=== PATIENT | female | born 1950 | race Caucasian/White ===

== ENCOUNTER 2024-02-25 06:54 | Inpatient (IN) ==
--- NOTE | 2024-02-25 07:23 | Emergency Department Note ---
Impression & Plan Acute exacerbation of CHF (congestive heart failure), Hypertensive emergency, Elevated troponin ED Provider Note NAME: KAYCE VILLANUEVA AGE: 73 SEX: F : 1950 ARRIVES VIA: Walk-In INFORMANT: Patient, ED PROVIDER(S): Remi Degroot MD CHIEF COMPLAINT: Shortness of breath MEDICAL DECISION MAKING: Patient presents due to concern for shortness of breath. The patient was noted to be hypertensive but did state that she had some associated infectious symptoms. IV was established blood was obtained and chest x-ray was completed. Per my read the patient does appear volume overloaded with bilateral pleural effusions. The patient was ordered IV Lasix Nitropaste and BiPAP. Patient's blood work shows a normal white count hemoglobin of 11 with a normal platelet count. Kidney function is unremarkable. Initial troponin of 84 the patient's BNP of 410 patient likely does have volume overload hypertensive emergency possible heart failure. I did speak the on-call hospitalist service NADINE Caraballo and the patient was admitted by Dr. Perkins. Critical Care: I have personally spent 47 minutes of critical care time in direct management of this patient. This includes bedside care, interpretation of diagnostic studies, and testing, discussion with consultants, patient, and family members, and other require inpatient management activities. This 47 minutes is in excess of all separately billable procedures. Discussion w/ other healthcare providers: NADINE Alonzo and Dr. Perkins inpatient medicine service Prior /Outside records reviewed: None Differential diagnosis: Reactive airway disease, pneumonia, pneumothorax, COPD, CHF, ACS, pulmonary embolism, musculoskeletal, GERD as well as other pathologies were considered. Diagnostics, as interpreted by me: ECG: Sinus with PACs, rate of 93, normal intervals, normal axis no ST elevations. Cardiac monitoring: An order was placed for continuous cardiac monitoring. The monitor shows a rate of 92 with sinus with PACs rhythm. Patient was placed on pulse oximetry Medical decision rules: None Imaging studies: I informally interpreted the patient's chest x-ray shows bilateral pleural effusions with pulmonary edema with formal report to follow. HPI: Patient presents due to concern for shortness of breath. The patient states that she developed this after taking her medications around 8 PM last evening. The patient denies any changes in medication or rash. Patient does not believe that she is having allergic reaction. Patient does live by herself but did think that her blood pressure was elevated. The patient does complain of some associated right-sided shoulder pain. Patient is a non-smoker. Patient is scheduled to have a back injection completed on the and has been taking chronic Tylenol about 503 times daily for months. The patient has taken ibuprofen 400 mg up to 3 times daily for the last several weeks. The patient denies any current weakness but has had intermittent numbness in her legs. Patient denies any falls or trauma. Patient states that she has had productive sputum. Patient is a non-smoker and no history of smoking. Patient denies any prior history of heart or lung disease. No chest pain. Patient did not take her morning medications. Patient has not noticed any significant leg swelling. No recent travel. The patient states that she did have an echocardiogram completed in January but that was difficult to interpret as scheduled for another 1 upcoming. PAST MEDICAL HISTORY: See Below PAST SURGICAL HISTORY: See Below SOCIAL HISTORY: See Below HOME MEDICATIONS: See Below ALLERGIES: See Below VITALS: See Below PHYSICAL EXAMINATION: GENERAL: NAD, non-toxic. EYE EXAM: Normal conjunctiva. PERRL, no anisocoria and EOM's grossly intact w/o pain. OROPHARYNX: Moist mucus membranes, grossly normal dentition. NECK: Trachea midline, no stridor. Supple, no nuchal rigidity, no adenopathy, non-tender. No signs of meningismus. FROM of the neck with good chin to chest and neck extension. LUNGS: Clear to auscultation. Normal chest wall mechanics. HEART: NSR, no MRG. ABDOMEN: Abdomen soft, non-tender, no masses, no rebound or guarding. BACK: No CVA TTP. SKIN: No rashes and no bruising. UPPER EXTREMITIES: Upper extremities are grossly normal. LOWER EXTREMITIES: Grossly normal, trace pretibial edema without any calf pain or erythema. NEURO EXAM: A&O x3, cranial nerves II-XII grossly intact, normal speech, moves all 4 extremities. Past Med/Surg History Medical History Hypertensive emergency Lumbar radiculopathy, chronic Shortness of breath Hypertensive urgency Hyperlipidemia Hypertension Surgical History History of arthroscopy of both knees Family History Other Depression Dyslipidemia Hypertension Social History Smoking Status: Never smoker Hx Alcohol Use: No Hx Substance Use: No marital status: current occupational status: retired Feels Safe at Home: Yes Allergies Allergies Allergy/AdvReac Type Severity Reaction Status Date / Time Cephalosporins Allergy Unknown Verified 02/25/24 10:17 Home Meds Home Medications Medication Instructions Recorded Confirmed calcium carbonate 600 mg-vitamin 0 tab PO DAILY ##0 07/10/09 02/25/24 D3 20 mcg (800 unit) chewable tablet (Caltrate 600 plus D) multivitamin 0 tab PO DAILY ##0 07/10/09 02/25/24 gabapentin 300 mg capsule 300 mg PO BID 02/25/24 02/25/24 hydrochlorothiazide 25 mg tablet 25 mg PO DAILY 02/25/24 02/25/24 lisinopril 10 mg tablet 10 mg PO DAILY 02/25/24 02/25/24 simvastatin 20 mg tablet 20 mg PO DAILY 02/25/24 02/25/24 Results & Data (ED) Vital Signs Vital Signs - 24 hr 02/25/24 06:59 02/25/24 08:11 02/25/24 08:45 Temperature 37.5 C Temperature Source Temporal Artery Scan Pulse Rate 94 H 79 80 Respiratory Rate 22 27 H Respiratory Effort / Characteristics Non-Labored Non-Labored Spontaneous Respiratory Depth Normal Normal Respiratory Pattern Regular Blood Pressure 232/126 H Blood Pressure Mean 161 Pulse Oximetry 87 L 95 Oxygen Delivery Method Room Air Oxygen Flow Rate 2 Sepsis Recent Fever Within 48 Hours No Sepsis New/Unexplained Change in Mental Status No Sepsis Action Taken by Nursing No Action Required Oxygen Flow Rate - Titration Pulse Oximetry Post Tiitration 02/25/24 08:54 Temperature Temperature Source Pulse Rate Respiratory Rate Respiratory Effort / Characteristics Respiratory Depth Respiratory Pattern Blood Pressure Blood Pressure Mean Pulse Oximetry 87 L Oxygen Delivery Method Room Air Oxygen Flow Rate Sepsis Recent Fever Within 48 Hours Sepsis New/Unexplained Change in Mental Status Sepsis Action Taken by Nursing Oxygen Flow Rate - Titration 4 Pulse Oximetry Post Tiitration 96 Home Medications Current Medication List: was personally reviewed by me Laboratory Data Attestation: I reviewed the patient's lab results. 02/25/24 07:12 02/25/24 07:12 Lab Results 02/25/24 02/25/24 Range/Units 07:12 09:22 WBC 8.97 (4.8-10.8) K/ul RBC 3.61 L (4.20-5.40) M/uL Hgb 11.0 L (12.0-16.0) g/dl Hct 34.9 L (37.0-47.0) % MCV 96.7 (80.0-100.0) fL MCH 30.5 (25.0-34.0) pg MCHC 31.5 L (32.0-36.0) g/dL RDW Std Deviation 48.5 H (36.4-46.3) fL RDW Coeff of J Luis 13.5 (11.5-14.5) % Plt Count 235 (130-400) K/uL MPV 10.0 (9.4-12.4) fL Immature Gran % (Auto) 0.3 % Neut % (Auto) 82.5 % Lymph % (Auto) 10.6 % [place] % (Auto) 5.8 % Eos % (Auto) 0.1 % Baso % (Auto) 0.7 % Neut # (Auto) 7.40 H (1.40-6.50) K/uL Lymph # (Auto) 0.95 L (1.20-3.40) K/uL [place] # (Auto) 0.52 (0.11-0.59) K/uL Eos # (Auto) 0.01 (0.00-0.50) K/uL Baso # (Auto) 0.06 (0.00-0.20) K/uL Immature Gran # (Auto) 0.03 (0.01-0.20) K/uL PT 10.6 (9.0-12.0) Seconds INR 1.0 (0.9-1.1) APTT 26 (21-31) Seconds PTT Ratio 0.9 Sodium 140 (136-145) mmol/L Potassium 4.0 (3.5-5.1) mmol/L Chloride 103 (98-107) mmol/L Carbon Dioxide 28 (21-32) mmol/L Anion Gap 9 (3-11) BUN 15 (6-23) mg/dl Creatinine 0.88 (0.6-1.2) mg/dl Est Cr Clr Drug Dosing 49.6 ml/min Est GFR ( Amer) 75.5 ml/min Est GFR (Non-Af Amer) 65.2 ml/min BUN/Creatinine Ratio 17.0 (10-20) Glucose 126 H (70-99(Fasting)) mg/dl Calcium 9.9 (8.6-10.3) mg/dl Magnesium 1.7 (1.7-2.4) mg/dl Total Bilirubin 0.8 (0.2-1.0) mg/dl AST 27 (13-39) U/L ALT 16 (7-52) U/L Alkaline Phosphatase 62 (34-104) U/L Troponin I High Sens 84.4 H* (0-14) pg/ml B-Natriuretic Peptide 410 H (0-100) pg/ml Total Protein 8.2 (6.0-8.3) gm/dl Albumin 4.7 (3.4-5.0) gm/dl Globulin 3.5 (2.5-4.0) gm/dl Albumin/Globulin Ratio 1.3 (0.9-2) Procalcitonin 0.08 (0-0.5) ng/ml Urine Color Yellow Urine Appearance Clear (Clear) Urine pH 7.5 (4.5-7.5) Ur Specific [place] 1.006 (1.000-1.030) Urine Protein Negative (Negative) Urine Glucose (UA) Negative (Negative) Urine Ketones Negative (Negative) Urine Blood Negative (Negative) Urine Nitrite Negative (Negative) Urine Bilirubin Negative (Negative) Urine Urobilinogen Negative (Negative) Ur Leukocyte Esterase Negative (Negative) Administered Medications Acetaminophen (Acetaminophen 325 Mg Tab) 650 mg PO Q4H PRN PRN Reason: Pain or Fever Stop: 03/26/24 09:39 Last Admin: 02/25/24 12:01 Dose: 650 mg Documented By: NRB Aspirin (Aspirin 81 Mg Ectab) 81 mg PO [facility] Stop: 03/26/24 13:59 Last Admin: 02/25/24 15:10 Dose: 81 mg Documented By: NRMarla Enoxaparin Sodium (Enoxaparin Inj 40 Mg/0.4 Ml Syr) 40 mg SQ [facility] Stop: 03/26/24 10:59 Last Admin: 02/25/24 12:10 Dose: 40 mg Documented By: NRB Gabapentin (Gabapentin 300 Mg Cap) 300 mg PO BID JONAS Stop: 03/26/24 10:44 Last Admin: 02/25/24 11:58 Dose: 300 mg Documented By: NRMarla Lisinopril (Lisinopril 20 Mg Tab) 20 mg PO BID JONAS Stop: 03/26/24 10:44 Last Admin: 02/25/24 11:57 Dose: 20 mg Documented By: ALISSA Simvastatin (Simvastatin 20 Mg Tab) 20 mg PO DAILY JONAS Stop: 03/26/24 10:44 Last Admin: 02/25/24 11:58 Dose: 20 mg Documented By: ALISSA Discontinued Medications Furosemide (Furosemide 40 Mg/4 Ml Vial) 40 mg IV ONE ONE Stop: 02/25/24 08:12 Last Admin: 02/25/24 08:32 Dose: 40 mg Documented By: JONO Furosemide (Furosemide Inj 20 Mg/2 Ml Vial) 20 mg IV ONE ONE Stop: 02/25/24 12:01 Last Admin: 02/25/24 12:51 Dose: 20 mg Documented By: ALISSA Hydrochlorothiazide (Hydrochlorothiazide 25 Mg Tab) 25 mg PO DAILY JONAS Stop: 03/26/24 10:44 Last Admin: 02/25/24 11:58 Dose: 25 mg Documented By: ALISSA Nitroglycerin (Nitroglycerin 2% Ointment 30gm Tube) 1 inch EXT NOW ONE Stop: 02/25/24 08:12 Last Admin: 02/25/24 08:32 Dose: 1 inch Documented By: JONO Imaging Data Radiologist's Impression: Chest X-Ray 02/25/24 07:31 SINGLE VIEW CHEST CLINICAL HISTORY: Dyspnea FINDINGS: An AP, portable, upright chest radiograph is compared to study dated 04/14/2008 and correlated with chest CT dated 06/09/2008. The examination is degraded by portable technique and apical lordotic positioning. The heart is mildly enlarged. There is pulmonary vascular congestion. Bilateral airspace opacities are noted. No large pleural effusion or pneumothorax is seen. The skeletal structures are osteopenic. The bony thorax is grossly intact. Calcific tendinopathy is noted in the left shoulder. IMPRESSION: 1. Cardiomegaly with pulmonary vascular congestion. 2. Bilateral airspace opacities likely represent pulmonary edema. Correlate clinically for evidence of a superimposed infectious/inflammatory pneumonitis. Radiographic follow-up to resolution is recommended. ACT 112: Negative or not required by law. Electronically signed by: Kalin Bronson M.D. 02/25/2024 8:24 AM Discharge Plan Visit Data Chief Complaint: Shortness of Breath/Dyspnea Stated Complaint: SOB ED Provider: Remi Degroot Discharge Problem: Acute exacerbation of CHF (congestive heart failure), Hypertensive emergency, Elevated troponin Discharge Instructions Interventions: ED Discharge Assessment Last Done: 02/25/24 10:37 Discharge Problem: Acute exacerbation of CHF (congestive heart failure) Qualifiers: Heart failure type: unspecified Qualified Code(s): I50.9 - Heart failure, unspecified
[2024-02-25 08:18] LABS: Basophils # (auto) 0.06 K/uL (0.00-0.20); Basophils % (auto) 0.7 %; Eosinophils # (auto) 0.01 K/uL (0.00-0.50); Eosinophils % (auto) 0.1 %; Hematocrit (blood only) 34.9 % (37.0-47.0); Immature Granulocytes # (auto) 0.03 K/uL (0.01-0.20); Immature Granulocytes % (auto) 0.3 %; Lymphocytes # (auto) 0.95 K/uL (1.20-3.40); Lymphocytes % (auto) 10.6 %; Mean Corpuscular Hemoglobin 30.5 pg (25.0-34.0); Mean Corpuscular Hgb Conc 31.5 g/dL (32.0-36.0); Mean Corpuscular Volume 96.7 fL (80.0-100.0); Monocytes # (auto) 0.52 K/uL (0.11-0.59); Monocytes % (auto) 5.8 %; Neutrophils % (auto) 82.5 %; Platelet Count 235 K/uL (130-400); RDW Coefficient of Variation 13.5 % (11.5-14.5); RDW Standard Deviation 48.5 fL (36.4-46.3); Red Blood Count 3.61 M/uL (4.20-5.40); White Blood Count 8.97 K/ul (4.8-10.8)
--- NOTE | 2024-02-25 08:26 | XRay Report ---
SINGLE VIEW CHEST CLINICAL HISTORY: Dyspnea FINDINGS: An AP, portable, upright chest radiograph is compared to study dated 04/14/2008 and correlat ed with chest CT dated 06/09/2008. The examination is degraded by portable technique and apical lordot ic positioning. The heart is mildly enlarged. There is pulmonary vascular congestion. Bilateral airsp maame opacities are noted. No large pleural effusion or pneumothorax is seen. The skeletal structures a re osteopenic. The bony thorax is grossly intact. Calcific tendinopathy is noted in the left shoulder . IMPRESSION: 1. Cardiomegaly with pulmonary vascular congestion. 2. Bilateral airspace opacities likely represent pulmonary edema. Correlate clinically for evidence o f a superimposed infectious/inflammatory pneumonitis. Radiographic follow-up to resolution is recomme nded. ACT 112: Negative or not required by law. Electronically signed by: Kalin Bronson M.D. 02/25/2024 8:24 AM
[2024-02-25] MEDS: FUROSEMIDE 40 MG/4 ML VIAL IV ONE (08:32)
[2024-02-25] MEDS: NITROGLYCERIN 2% OINTMENT 30GM TUBE EXT ONE (08:32)
[2024-02-25 08:41] LABS: Albumin Globulin Ratio 1.3 (0.9-2); Albumin Level 4.7 gm/dl (3.4-5.0); Bilirubin,Total 0.8 mg/dl (0.2-1.0); Calcium 9.9 mg/dl (8.6-10.3); Creatinine Clr Calc Pharmacy 49.6 ml/min; Est GFR (African American) 75.5 ml/min; Est GFR (Non-African American) 65.2 ml/min; Globulin 3.5 gm/dl (2.5-4.0); Magnesium 1.7 mg/dl (1.7-2.4); Total Protein 8.2 gm/dl (6.0-8.3)
[2024-02-25 08:58] LABS: Troponin I High Sensitivity 84.4 pg/ml (0-14)
[2024-02-25 09:20] LABS: Partial Thromboplastin Ratio 0.9; Partial Thromboplastin Time 26 Seconds (21-31); Prothrombin Time 10.6 Seconds (9.0-12.0)
[2024-02-25] MEDS ORDERED: POLYETHYLENE (MIRALAX) 17 GM PACK PO PRN (09:40)
[2024-02-25] MEDS ORDERED: MAGNESIUM HYDROXIDE SUSP 30 ML UDC PO PRN (09:40)
[2024-02-25] MEDS ORDERED: ALUMINUM/MAGNESIUM SUSP 30 ML UDC PO PRN (09:40)
[2024-02-25] MEDS ORDERED: ONDANSETRON INJ 2 MG/ML 2 ML VIAL IV PRN (09:40)
--- NOTE | 2024-02-25 09:49 | History & Physical Report ---
Date of Service February 25, 2024 Assessment & Plan (1) Hypertensive emergency: (2) Shortness of breath: (3) Hyperlipidemia: (4) Lumbar radiculopathy, chronic: Plan Ms. Singh is a 73 year old female that presents to the ED today with SOB that she states started last night at 2200 after climbing 15 stairs at her home. She did not fall asleep until 0200 and did not awaken after she was asleep. She reports 15 pound weight gain over the past 1.5 months. On arrival, her BP was elevated 232/126 and she had complaints of right shoulder discomfort but no anterior chest pain. NOrmally she does not have any MELENDEZ. CXR suggestive of volume overload. She consistently uses her CPAP at home and is compliant on her medications. PMH includes DUC (CPAP at night), invasive ductal breast cancer, HTN, HLD, lumbar radiculopathy. Most recent ECHO: 01/2024 LV wall concentric motion, EF 55-59%, GIIDDx without pHTN. No leukocytosis, BNP 410, troponin 84.4; suspect ischemic demand rather than ACS. In the ED Nitropaste 1 inch and Lasix 40 mg IV administered. Patient is receptive to indwelling Titus catheter for adequate and more accurate I's/O. Patient will be admitted for continued evaluation and management of HTN emergency and diastolic congestive heart failure. Repeat echo as patient has an appointment 03/10 for repeat echo. Administer additional dose of Lasix and increased dose of lisinopril to 20 mg twice daily. Will involve cardiology to establish care for newly diagnosed CHF. HTN emergency: Diastolic CHF: Acute Admit to PCU No leukocytosis, BNP 410 Troponin 84.4 --> 160--> 170; trend one more Q6. No chest pain. Suspect ischemic demand given heart failure CXR suggestive of pulm edema Lasix 40 mg IV given in ED; will administer an additional 20 mg and insert Titus for accurate I's/O BP 232/126 in ED; Nitro paste 1" admin; responded, now in 170's. Takes Lisinopril and HCTZ; did not take this AM; hold HCTZ for now per Cards recc; may benefit from loop diuretic therapy When I was in the room she was 170/90; increase dose of Lisinopril to 20 mg BID starting now ECHO 02/13: LV wall concentric motion, EF 55-59%, GIIDDx without pHTN. She had the ECHO recently due to heart murmur Was advised that it was difficult to visualize the valves and repeat echo was scheduled for 03/10; will repeat now while inpatient 1500mL fluid restriction Cardiology consultation given new diastolic CHF diagnosis HLD: Chronic Takes simvastatin; continue Most recent Lipid panel 11/2023: TG 113, HDL 63, LDL 77 Lumbar Radiculopathy: Chronic Follows with Pain management Recently started steroid injections Disposition: PCP: Dr. Silveira Code statusL Full Code VTE Prophylaxis: Lovenox subcu I spent a total of 87 minutes coordinating, documenting, and providing care for this patient excluding time spent in the performance of separately billed services. All of the aforementioned completed while collaborating with the assigned attending physician for a full treatment plan. Please see their addendum for further details. History of Present Illness Chief Complaint: SOB Primary Care Provider: Quentin Silveira MD Ms. Singh is a 73 year old female that presents to the ED today with SOB that she states started last night at 2200 after climbing 15 stairs at her home. She did not fall asleep until 0200 and did not awaken after she was asleep. She reports 15 pound weight gain over the past 1.5 months. On arrival her BP was elevated 232/126 and she had complaints of right shoulder discomfort but no anterior chest pain. CXR suggestive of volume overload. She consistently uses her CPAP at home and is compliant on her medications. PMH includes DUC, invasive ductal breast cancer, HTN, HLD, lumbar radiculopathy. Most recent ECHO: 01/2024 LV wall concentric motion, EF 55-59%, GIIDDx without pHTN. She had the ECHO recently due to heart murmur. Patient denies tobacco, alcohol, recreational drug use. No leukocytosis, BNP 410, troponin 84.4; suspect ischemic demand rather than ACS. In the ED Nitropaste 1 inch and Lasix 40 mg IV administered. Patient is receptive to indwelling Titus catheter for adequate and more accurate I's/O. Patient denies fever, chills, headache, dizziness, chest pain, palpitations, nausea, vomiting, diarrhea, urinary changes or dysuria, recent falls or trauma. Patient will be admitted for continued evaluation and management of diastolic congestive heart failure. Repeat echo as patient has an appointment 03/10 for repeat echo. Administer additional dose of Lasix and increased dose of lisinopril to 20 mg twice daily. Will involve cardiology to establish care for newly diagnosed CHF. Allergies Allergy/AdvReac Type Severity Reaction Status Date / Time Cephalosporins Allergy Unknown Verified 02/25/24 10:17 Home Medications Medication Instructions Recorded Confirmed Type calcium carbonate 600 mg-vitamin 0 tab PO DAILY ##0 07/10/09 02/25/24 History D3 20 mcg (800 unit) chewable tablet (Caltrate 600 plus D) multivitamin 0 tab PO DAILY ##0 07/10/09 02/25/24 History gabapentin 300 mg capsule 300 mg PO BID 02/25/24 02/25/24 History hydrochlorothiazide 25 mg tablet 25 mg PO DAILY 02/25/24 02/25/24 History lisinopril 10 mg tablet 10 mg PO DAILY 02/25/24 02/25/24 History simvastatin 20 mg tablet 20 mg PO DAILY 02/25/24 02/25/24 History Past Med/Surg History Medical History (Updated 02/25/24 @ 13:26 by Vale Adrian PA-C) Hypertensive emergency Lumbar radiculopathy, chronic Shortness of breath Hypertensive urgency Hyperlipidemia Hypertension Surgical History History of arthroscopy of both knees Family History (Updated 02/25/24 @ 10:43 by NADINE Fairbanks) Other Depression Dyslipidemia Hypertension Social History (Updated 02/25/24 @ 13:54 by NADINE Fairbanks) Smoking Status: Never smoker Hx Alcohol Use: No Hx Substance Use: No marital status: current occupational status: retired Feels Safe at Home: Yes Review of Systems Review of Systems: Neuro: (-) Falls, trauma, slurred speech HEENT: (-) GUILLEN, dizziness, dysphagia, visual or auditory changes CV: (-) CP, palpitations, swelling (+) weight gain Resp: (+) SOB GI: (-) appetite changes, N/V/D, bowel changes : (-) urinary changes Skin: (-) rashes Psych: (-) anxiety, depression Physical Exam Physical Exam: Neuro: AAOx4, PERRLA, no aphagia, memory changes, CNII-XII grossly intact HEENT: head normocephalic, atraumatic, moist mucus membranes CV: S1/S2, (-) M/G/R, (-) edema, cap refill < 3 seconds Resp: Lungs crackles lower posterior bases. On Nasal pillow Bipap. GI: Abdomen S/NT/ND, Ax4 bowel sounds, (-) CVA tenderness Musculoskeletal: 5/5 B/L UE strength, 5/5 B/L LE strength. No gait disturbance Skin: (-) rashes , (-) erythema. Psych: euthymic, yet tearful mood Results & Data Results & Data Vital Signs (Past 12 Hours) Vital Signs Temp Pulse Resp BP Pulse Ox O2 Del Method 02/25/24 08:11 79 02/25/24 06:59 37.5 C 94 H 22 232/126 H 87 L Room Air Laboratory Results Short CBC 02/25/24 Range/Units 07:12 WBC 8.97 (4.8-10.8) K/ul Hgb 11.0 L (12.0-16.0) g/dl Hct 34.9 L (37.0-47.0) % Plt Count 235 (130-400) K/uL BMP 02/25/24 07:12 Sodium 140 Potassium 4.0 Chloride 103 Carbon Dioxide 28 BUN 15 Creatinine 0.88 Glucose 126 H Calcium 9.9 Liver Function 02/25/24 Range/Units 07:12 Total Bilirubin 0.8 (0.2-1.0) mg/dl AST 27 (13-39) U/L ALT 16 (7-52) U/L Alkaline Phosphatase 62 (34-104) U/L Albumin 4.7 (3.4-5.0) gm/dl Diagnostic Findings Chest X-Ray 02/25/24 07:31 SINGLE VIEW CHEST CLINICAL HISTORY: Dyspnea FINDINGS: An AP, portable, upright chest radiograph is compared to study dated 04/14/2008 and correlated with chest CT dated 06/09/2008. The examination is degraded by portable technique and apical lordotic positioning. The heart is mildly enlarged. There is pulmonary vascular congestion. Bilateral airspace opacities are noted. No large pleural effusion or pneumothorax is seen. The skeletal structures are osteopenic. The bony thorax is grossly intact. Calcific tendinopathy is noted in the left shoulder. IMPRESSION: 1. Cardiomegaly with pulmonary vascular congestion. 2. Bilateral airspace opacities likely represent pulmonary edema. Correlate clinically for evidence of a superimposed infectious/inflammatory pneumonitis. Radiographic follow-up to resolution is recommended. ACT 112: Negative or not required by law. Electronically signed by: Kalin Bronson M.D. 02/25/2024 8:24 AM Code Status & VTE Plan Code Status Full Code in the event of cardiac or respiratory arrest VTE Prophylaxis Plan VTE Prophylaxis will be ordered: Yes Supervising Physician Co-Signing Physician Notes Patient was seen and examined independently at bedside. Chart reviewed. Case discussed with Court MCCOY and agree with the documentation above. In summary, this is a 73 year old female with h/o HTN, DUC on CPAP who presented to the ED with acute onset SOB and headache since last night and was found to have hypertensive emergency with BP 232/126 and pulmonary edema. Given nitro paste in ED along with iv lasix with improvement in BP. On BIPAP. Feeling better during my encounter. She had not taken her home HTCZ and lisinopril this morning as she was in the ED. Also noted to have acute diastolic CHF with weight gain of about 15 lbs, BNP of 410 and CXR with pulmonary edema/pulm vasc congestion and cardiomegaly. OP echo reviewed, normal EF, grade II diastolic dysfunction. Procal negative, WBC normal. Admit to PCU on tele, iv lasix, daily weight, strict I and Os. BP already improved per goal, so we will increase her lisinopril to 20 bid for now. IV HLZ prn. Repeat echo pending. Cardio consulted. Trop mildly elevated, likely demand. trend for completeness. Aspirin added per cardio and recommended ischemic work up possibly as OP once volume optimized. rest as per the note above. On exam- General: Sitting in bed, not in acute distress, on BIPAP HEENT: EOMI, ROMERO, MMM Chest: Diminished breath sounds bilaterally with some rales CVS: Regular rate and rhythm, normal heart sounds, + murmur, JVD + Abdomen: Soft, non tender, not distended, normal bowel sounds Neuro: Awake, alert, oriented, conversing well, non focal Extremities: No cyanosis, clubbing or edema Rest as per the note above.
[2024-02-25 10:05] LABS: Appearance Urine Clear (Clear); Bilirubin Urine Negative (Negative); Blood Urine Negative (Negative); Color Urine Yellow; Glucose Urine UA Negative (Negative); Ketones Urine Negative (Negative); Leukocyte Esterase Urine Negative (Negative); Nitrite Urine Negative (Negative); Protein Urine Negative (Negative); Specific Gravity Urine 1.006 (1.000-1.030); Urobilinogen Urine Negative (Negative); pH Urine 7.5 (4.5-7.5)
[2024-02-25 10:15] LABS: Magnesium 1.7 mg/dl (1.7-2.4); Phosphorus 3.7 mg/dl (2.5-4.9)
[2024-02-25 10:22] LABS: Troponin I High Sensitivity 160.2 pg/ml (0-14)
[2024-02-25] MEDS: lisinopril 20 MG TAB PO SCH (11:57)
[2024-02-25] MEDS: GABAPENTIN 300 MG CAP PO SCH (11:58)
[2024-02-25] MEDS: hydroCHLOROthiazide 25 MG TAB PO SCH (11:58)
[2024-02-25] MEDS: SIMVASTATIN 20 MG TAB PO SCH (11:58)
[2024-02-25] MEDS: ACETAMINOPHEN 325 MG TAB PO PRN (12:01)
[2024-02-25] MEDS: ENOXAPARIN INJ 40 MG/0.4 ML SYR SQ SCH (12:10)
[2024-02-25] MEDS: FUROSEMIDE INJ 20 MG/2 ML VIAL IV ONE (12:51)
--- OUTSIDE RECORDS SUMMARY | 2024-02-25 12:59 | External Medical Summary | Summary of Care ---
Author Name Unknown Organization [facility] Address [address] [facility] [address] Phone [phone] Care Team Providers Care Management Sme Name Role Phone Quentin Silveira MD Primary Care Provider [phone] Reason for Visit * Reason Comments Follow Up MRI L spine review Encounter Details Date Type Department Care Team (Late st Contact Info) Description 02/17/2024 9:00 AM EDT Telemedicine Interventional Pain Center, [facility] [address] [place] [address] Estee Redd PA-C [address] [place] [address] Lumbar radicular pain*; Spinal stenosis of lumbar region with neurogenic claudication Allergies Active Allergy Reactions Criticality Noted Date Comments Cephalexin Monohydrate Other (Please comment) High 07/22/1999 respiratory distress. Cephalosporins 12/28/2009 documented as of this encounter (statuses as of 02/17/2024) Medications Medication Sig Dispensed Refills Start Date End Date Status CALCIUM + D 600-200 MG-UNIT OR TABS 1 po qd 0 0 04/24/2005 Active MULTIPLE VITAMINS PO TABS 1 tab once a day 0 Active NATURAL SUPPLEMENTIndicat ions:takes 2 daily Take by mouth daily. Natural laxatives from [employer] 0 Active Ascorbic Acid 125 MG Oral Tablet ChewableIndicatio ns:2 chews a day Take by mouth. 0 Acti ve Probiotic Acidophilus BioBeads Oral Capsule Take 1 Capsule by mouth in the morning and 1 Capsule at noon and 1 Capsule in the evening. Take with meals. 0 Active Eye Health Oral Capsule Take by mouth . 0 Active Hair/Skin/Nails Oral Tablet Take 1 Tablet by mouth in the morning. 0 Active Triamcinolone Acetonide 0.1 % External Cream (Aristocort)Indic ations:Irritant contact dermatitis due to plants, except food Apply topically to affected area 2 times a day. To affected area. 80 g 1 05/06/2023 Active Additional Information Patient not taking.Reported on 06/08/2023 Gabapentin 300 MG Oral Capsule (Neurontin)Indica tions:Pain in both lower legs Take one tablet at bedtime x 5 days then increase to twice daily 90 Capsule 3 12/14/2023 Active Lisinopril 10 MG Oral Tablet (Prinivil)Indicat ions:HTN, goal below 140/90 Take 1 Tablet by mouth in the morning. In the morning.. 90 Tablet 3 02/11/2024 Active Simvastatin 20 MG Oral Tablet (Zocor) Take 1 Tablet by mouth at bedtime. 90 Tablet 3 02/11/2024 Active hydroCHLOROthiazi de 25 MG Oral Tablet (Hydrodiuril)Janeth cations:HTN, goal below 140/90 Take 1 Tablet by mouth in the morning. In the morning.. 90 Tablet 3 02/11/2024 Active Baclofen 10 MG Oral Tablet (Lioresal) Take 1 Tablet (10 mg) by mouth in the morning and 1 Tablet (10 mg) before bedtime. 60 Tablet 0 11/06/2022 4 Discontinue d(Medicatio n List Clean Up) methylPREDNISolon e 4 MG Oral Tablet Therapy Pack (Medrol Dosepack)Indicati ons:Lumbar radicular pain follow package directions 21 Tablet 0 01/22/2024 4 Discontinue d(End of Procedure) documented as of this encounter (statuses as of 02/17/2024) Active Problems Problem Noted Date Diagnosed Date S/P mastectomy, bilateral 11/04/2022 Acquired hallux valgus of left foot 02/20/2021 Polyneuropathy 01/16/2020 Burning pain 09/14/2019 Right leg swelling 08/09/2019 Postoperative anemia due to acute blood loss Prediabetes 01/05/2018 Overview: Per Prediabetes protocol #1 HX: breast cancer 11/30/2013 S/P TKR (total knee replacement) 09/20/2012 Dyslipidemia, goal LDL below 100 12/04/2010 Spinal stenosis of lumbar re gion without neurogenic claudication 07/31/2009 DUC on CPAP 08/05/2006 Overview: CPAP 9-12 cwp ADVANCE DIRECTIVE INFORMATION 04/02/2006 Overview: No, Advance Directive brochure given to patient at previous visit. HTN, goal below 140/90 10/14/2004 Menopause 09/28/2003 Cataract documented as of this encounter (statuses as of 02/17/2024) Resolved Problems Problem Noted Date Diagnosed Date Resolved Date Morbid obesity with body mas s index (BMI) of 40.0 to 44.9 in adult 11/25/2019 11/30/2020 Gouty arthropathy 12/08/2017 05/30/2020 Body mass index (BMI) of 40. 0 to 44.9 in adult 08/24/2017 12/08/2019 Overview: Per Obesity protocol #1 [facility] Other*[id number] 05/28/2012 07/01/2016 Severe obesity with body mas s index (BMI) of 35.0 to 39.9 with serious comorbidity 02/18/2010 Overview: Per Obesity Taxonomy ICD-10 update of inactive diagnosis Knee joint replacement status 01/24/2010 05/01/2017 Thoracic and lumbosacral neuritis 10/02/2009 05/01/2017 Generalized osteoarthritis 09/10/2009 0 05/01/2017 Joint pain, knee 07/31/2009 05/01/2017 Lumbago 07/31/2009 05/01/2017 OBESITY, UNSPECIFIED 09/28/2003 010 Overview: Per Obesity Taxonomy Malignant neoplasm of upper- outer quadrant of female breast 07/07/2002 11/04/2022 Dyslipidemia, goal to be determined 06/22/2001 12/04/2010 Erythema nodosum 07/22/1999 05/01/2017 documented as of this encounter (statuses as of 02/17/2024) Immunizations Name Administration Dates Next Due COVID-19 mRNA, LNP-s, No Pre serve, 2-Dose Series (Pfizer) 10/28/2021,03/06/2021,02/13/2021 H1N1 2009 Influenza, IM 11/29/2009 PPD 10/24/2020,10/15/2020 Pneumococcal Conjugate Vacc, 13 Valent (Prevnar) 10/09/2015 Pneumococcal Polysaccharide PPV23 (Pneumovax) 05/04/2017,02/05/2008 Season Influenza, Quad, PF, Adjuvanted, 65+ Yrs, IM (FLUAD) 08/29/2020 Seasonal Influenza, PF, 6 M & above, IM , (FluLaval or Fluzone) 08/03/2019,08/09/2018 Seasonal Influenza, Quadriva lent Hd (Fluzone Hd) 07/30/2023,08/16/2021 Seasonal Influenza, Quadriva lent, No Preserve, IM 08/10/2017,08/14/2016 Seasonal Influenza, Split, I IV3, With Preserve, Inj 08/09/2015,07/25/2014,09/23/2013,07/25,10/09/2011,09/27/2010,11/29/19 10,09/14/2008,10/06/2007,09/11/2006 07/25/2015 TDAP (age 10 and older)(Boostrix) 05/25/2019 TDAP (age 11 and older)(Adacel) 12/04/2010 12/04/2020 Varicella Zoster Vaccine (Adult) 10/03/2014 documented as of this encounter Social History Tobacco Use Types Packs/Day Years Used Date Smoking Tobacco: Never Smokeless Tobacco: Never Alcohol Use Standard Drinks/Week Comments Yes 0 (1 standard drink = 0.6 oz pur e alcohol) 1 glass of wine per night PHQ-2 Answer Date Recorded PHQ Adult Total Score 0 12/04/2022 Hunger Vital Sign Answer Date Recorded Within the past 12 months, y ou worried that your food would run out before you got the money to buy more. Never true 12/02/19 23 Within the past 12 months, t he food you bought just didn't last and you didn't have money to get more. Never true 12/02/2022 Sex and Gender Information Value Date Recorded Sex Assigned at Female 10/27/2019 10:05 AM EST Gender Identity Female 03/15/2019 11:37 AM EDT Sexual Orientation Straight 10/27/2019 10 :05 AM EST Job Start Date Occupation Industry Not on file Not on file Not on file documented as of this encounter Functional Status Functional Status Response Date of Assess ment Are you deaf or do you have serious difficulty h earing? No 09/07/2018 Are you blind or do you have serious difficulty seeing, even when wearing glasses? No 09/07/2018 Do you have serious difficul ty walking or climbing stairs? (5 years old or older) No 09/07/2018 Do you have difficulty dress ing or bathing? (5 years old or older) No 09/07/2018 Because of a physical, menta l, or emotional condition, do you have difficulty doing errands alone such as visiting a doctor s office or shopping? (15 years old or older) No 09/07/20 18 Cognitive Status Response Date of Assessm ent Because of a physical, menta l, or emotional condition, do you have serious difficulty concentrating, remembering, or making decisions? (5 years old or older) No 09/07/2018 documented as of this encounter Progress Notes * Estee Redd PA-C - 02/17/2024 9:00 AM EDT Name: Raysa Singh Date: 02/17/2024 After connecting to the patient via telephone, the patient was identified by name and date of . Patient was then informed that this was a telephone call only visit. The patient agreed to participate. Visit Disposition: Routine follow-up Total call duration six minutes. HPI: Raysa Singh is a 73 year old female known to the Pain Management clinic presents for follow up to review L spine MRI. Scheduled for LOY in March - patient is interested in cancellation list ifsooner appointment becomes available. Locates pain low back and buttock pain that radiates to B anterior thigh and villasenor L > R. Baseline LE weakness and paresthesia - continues to use cane to ambulate. Denies bowel/bladder dysfunction. Temporary relief with lumbar support brace and cane. Using tylenol, ibuprofen, gabapentin for pain relief. No relief with baclofen. Reviewed L spine MRI 02/10/24 - no acute compression changes, scoliotic curvature, listhesis L4/5 and L5/S1, moderate to severe central stenosis most pronounced L4/5, severe B foraminal narrowing L4/5, moderate B foraminal narrowing L3/4 and L5/S1. History: Past Medical History: Diagnosis Date HTN, goal below 140/90 10/14/2004 HX: breast cancer 11/30/2013 SPINAL STENOSIS-LUMBAR 07/31/2009 Past Surgical History: Procedure Laterality Date ARTHROPLASTY KNEE TOTAL 08/17/2012 08/17/[address] [facility] ARTHROPLASTY KNEE TOTAL 04/08/2010 04/08/2010 LEFT knee replacement at [facility] BREAST CAPSULECTOMY, PERIPROSTHETIC 08/08/2014 PERIPROSTHETIC CAPSULECTOMY BREAST performed by Azeem Lynn MD at [facility] BREAST RECONSTRUCTION W/LITHOGRAPHER HELPER 02/03/2014 BREAST RECONSTRUCTION WITH TISSUE LITHOGRAPHER HELPER performed by Azeem Lynn MD at [facility] BX BREAST PERCUT W/O IMAGE 12/06/2013 12/06/2013 left breast core bx - invasive ductal carcinoma - Gómez's Macario - CARPAL TUNNEL SURGERY left CARPAL TUNNEL SURGERY right COLONOSCOPY 2008 repeat in 10 yrs COLONOSCOPY, DIAGNOSTIC (RECTUM) 02/21/2019 Melanosis, repeat 10 yrs/COLONOSCOPY FLEXIBLE PROXIMAL DIAGNOSTIC performed by Pierce Diaz MD at ENDOSCOPY [facility] IDENTIFY SENTINEL NODE, RADIOACTIVE TRACER 02/03/2014 INJECTION PROCEDURE FOR IDENTIFICATION SENTINEL NODE performed by Stacy Magana MD at [facility] INFORMATION 05/1999 fx right ankle with plates and screws / [facility] MASTECTOMY, PARTIAL 05/02/2002 05/02/2002 LEFT partial mastectomy /slnb - Dr. Paulino MASTECTOMY, SIMPLE, COMPLETE 02/03/2014 MASTECTOMY SIMPLE COMPLETE performed by Stacy Magana MD at OR [facility] REMOVE CATARACT, INSERT LENS PROSTH 2001 2001 cataract removal - left REMOVE CATARACT, INSERT LENS PROSTH right cataract removal REMOVE TISSUE FOR GRAFT Left 04/12/2015 OBTAIN TISSUE GRAFTS OTHER performed by Azeem Lynn MD at OR [facility] REPLACE TISSUE LITHOGRAPHER HELPER 08/08/2014 REPLACEMENT EXPANDERS WITH PERMANENT PROSTHESIS performed by Azeem Lynn MD at OR [facility] REVISE KNEE JOINT REPLACEMENT Left 09/07/2018 TOTAL KNEE REVISION FEMUR AND TIBIA performed by Lauro Pabon MD at OR [facility] REVISION OF BREAST RECONSTRUCTION Right 04/12/2015 REVISION OF BREAST RECONSTRUCTION performed by Azeem Lynn MD at OR [facility] SHOULDER ARTHROSCOPY, DX ??? left shoulder SHOULDER ARTHROSCOPY, DX ??? right SKIN TISSUE REARRANGEMENT 08/08/2014 SKIN TISSUE REARRANGEMENT performed by Azeem Lynn MD at OR [facility] SKIN TISSUE REARRANGEMENT, ADD-ON 08/08/2014 SKIN TISSUE REARRANGEMENT, ADD-ON performed by Azeem Lynn MD at OR [facility] Current Outpatient Medications Medication Sig Dispense Refill CALCIUM + D 600-200 MG-UNIT OR TABS 1 po qd 0 0 MULTIPLE VITAMINS PO TABS 1 tab once a day NATURAL SUPPLEMENT Take by mouth daily. Natural laxatives from [employer] Ascorbic Acid 125 MG Oral Tablet Chewable Take by mouth. Baclofen 10 MG Oral Tablet (Lioresal) Take 1 Tablet (10 mg) by mouth in the morning and 1 Tablet (10 mg) before bedtime. (Patient not taking: Reported on 12/04/2022) 60 Tablet 0 Probiotic Acidophilus BioBeads Oral Capsule Take 1 Capsule by mouth in the morning and 1 Capsule atnoon and 1 Capsule in the evening. Take with meals. (Patient not taking: Reported on 02/03/2024) Eye Health Oral Capsule Take by mouth . Hair/Skin/Nails Oral Tablet Take 1 Tablet by mouth in the morning. Triamcinolone Acetonide 0.1 % External Cream (Aristocort) Apply topically to affected area 2 times a day. To affected area. (Patient not taking: Reported on 06/08/2023) 80 g 1 Gabapentin 300 MG Oral Capsule (Neurontin) Take one tablet at bedtime x 5 days then increase to twice daily 90 Capsule 3 methylPREDNISolone 4 MG Oral Tablet Therapy Pack (Medrol Dosepack) follow package directions (Patient not taking: Reported on 02/03/2024) 21 Tablet 0 Lisinopril 10 MG Oral Tablet (Prinivil) Take 1 Tablet by mouth in the morning. In the morning.. 90 Tablet 3 Simvastatin 20 MG Oral Tablet (Zocor) Take 1 Tablet by mouth at bedtime. 90 Tablet 3 hydroCHLOROthiazide 25 MG Oral Tablet (Hydrodiuril) Take 1 Tablet by mouth in the morning. In the morning.. 90 Tablet 3 No current facility-administered medications for this visit. Review of patient's allergies indicates: Allergen Reactions Cephalexin Monohydrate Other (Please comment) respiratory distress. Cephalosporins IMAGING: MRI LUMBAR SPINE WITHOUT CONTRAST 02/10/24 The retroperitoneal tissues appear unremarkable. There is rightward curvature of the lumbar spine which may be partially positional. The conus terminates at the L1 level. Extension way villasenor of the lumbar lordosis is noted. There is grade 1 anterolisthesis of L4 on L5 and L5 on S1 and there is disc space narrowing throughout the lumbar spine, most severe at the T12-L1 level where there is progressive discogenic endplate change and near complete disc space height loss. There also appears to be partial fusion across the lower thoracic disc spaces at the margin of the field of view in the sagittal plane. On the STIR imaging discogenic endplate changes are noted at L2-3, L4-5, and L5-S1 and alsoin the lower thoracic spine at T11-12. At L1-2 there is disc bulge without thecal sac stenosis. Mild foraminal narrowing is present bilaterally. At L2-3 disc bulge and ligamentum flavum redundancy causes moderate thecal sac narrowing and bilateral subarticular narrowing, greater on the left than the right. There is moderate foraminal narrowing bilaterally. At L3-4 disc bulge, facet hypertrophy, and ligamentum flavum redundancy result in moderate thecal sac narrowing. There is moderate foraminal narrowing bilaterally, greater on the left than the right. At the L4-5 level anterolisthesis and ligamentum flavum redundancy results in severe stenosis of the thecal sac with effacement of the CSF and severe bilateral subarticular stenosis. There is also severe foraminal stenosis bilaterally at this level. At L5-S1 disc bulge and facet degeneration cause mild thecal sac narrowing and moderate bilateral foraminal narrowing. IMPRESSION: 1. Severe thecal sac stenosis at the L4-5 level with nerve root crowding and severe bilateral subarticular stenosis, findings which appear progressive in comparison to the previous MRI. 2. Additional progressive disc degeneration throughout the lower thoracic and lumbar spine as described in detail above. ASSESSMENT: Lumbar radicular pain Spinal stenosis with neurogenic claudication RECOMMENDATION: Continued low back and LE pain despite conservative care. Reviewed L spine MRI 02/10/24 - no acute compression changes, scoliotic curvature, listhesis L4/5 and L5/S1, moderate to severe central stenosis most pronounced L4/5, severe B foraminal narrowing L4/5, moderate B foraminal narrowing L3/4 and L5/S1. Discussed LOY using fluoroscopy. Risks including, but not limited to epidural hematoma, infection, worsening pain, failure to alleviate pain, nerve injury and possible steroid side effects werereviewed. 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 Due to severity and duration of symptoms, will schedule left interlaminar LOY L5/S1 versus L4/5 - significant central stenosis L4/5. Follow up six weeks after procedure. Declines surgical consultation, consider if injection provides minimal relief. Total call duration six minutes. Estee Redd PA-C 02/17/2024 documented in this encounter Plan of Treatment Upcoming Encounters Date Type Department Care Team (Latest Contact Info) Description 02/29/2024 1:30 PM EDT [address] [address] 03/10/2024 10:45 AM EDT Cardiac Studies Cardiac Studies, [facility] [address] [place] [address] 03/14/2024 10:05 AM EDT Hospital Encounter OR [facility], Operating Room [facility] [address] [place] [phone] Vasile Ojeda, [address] [place] [address] 03/14/2024 10:05 AM EDT - 03/14/2024 10:30 AM EDT Surgery [facility], Operating Room [facility] [address] [place] [phone] Vasile Ojeda, [address] [place] [address] INJECTION SPINE LUMBAR OR SACRAL 06/09/2024 1:00 PM EDT Office Visit Neurology [employer] [address] [facility] [place] [address] Johanna Cavazos MD [address] [facility] [place] [address] 12/08/2024 11:00 AM EST Office Visit [facility] [address] [place] [address] Quentin Silveira MD [address] [place] [address] Scheduled Procedures Name Priority Associated Diagnoses Date/Ti me INJECTION SPINE LUMBAR OR SACRAL Lumbar radiculopathy 03/14/2024 10:05 AM EDT COLONOSCOPY FLEXIBLE PROXIMAL DIAGNOSTIC Recall Special screening for malignant neoplasms, colon Health Maintenance Due Date Last Done Comments Cologuard 1995 Fecal Occult Blood Test 1995 Sigmoidoscopy 12/07/2008 12/07/2003 Zoster Vaccines (2 of 3) 11/28/2014 10/03/2014 DXA Scan 03/13/2021 03/13/2014, 06/24/2011 COVID-19 Vaccine ( season) 2023 10/28/2021, 03/06/2021, 02/13/2021 Depression Screening 12/04/2023 12/04/2022 GFR 11/26/2024 11/26/2023, 10/23, 11/21/2021, Additional history exists HbA1c 11/26/2024 11/26/2023, 10/23, 11/21/2021, Additional history exists Albumin/Creatinine Ratio 11/04/2025 11/04/2022, 10/24 Lipid Panel 11/26/2028 11/26/2023, 10/23, 11/21/2021, Additional history exists Colonoscopy 02/21/2029 02/21/2019, 04/11/2018, 01/08/2009 Colorectal Cancer Screening 02/21/2029 DTaP,Tdap,and Td Vaccines (3 - Td or Tdap) 05/25/2029 05/25/2019, 12/04/2010, 10/14/2004, Additional history exists Pneumococcal Vaccine: 65+ Years Completed 05/04/2017, 10/09/2015, 02/05/2008 Influenza Vaccine (FLU shot) Completed 05/2023, 08/15/2022, 08/16/2021, Additional history exists GARDASIL-HPV IMMUNIZATION SERIES Aged Out No longer eligible based on patient's age to complete this topic Hepatitis B Aged Out No longer eligi ble based on patient's age to complete this topic MENINGOCOCCAL (MENACTRA/MENVEO) Aged Out No longer eligible based on patient's age to complete this topic documented as of this encounter Medical Devices Implanted Type Area Potato Spotter Device Identifier Shelf Expiration Date Model / Serial / Lot Cement Bone R 1112-140-01 - [id number] Implanted:Qty: 1 on 01/09/[address] [facility] Left: Knee [employer] 04/23/2014 00-1112-14 0- / [id number] Femur Nexgn D Left - [id number] Implanted:Qty: 1 on 01/09/[address] [facility] Left: Knee [employer] 10/23/2019-5996-01 4-51 / / [id number] Patella Poly Nexgen - [id number] Implanted:Qty: 1 on 01/09/[address] [facility] Left: Knee [employer] 11/23/2017-5972-06 5-32 / / [id number] Plate Tibial Flu - [id number] Implanted:Qty: 1 on 01/09/[address] [facility] Left: Knee [employer] 11/23/2019-5996-03 8- / [id number] Surface Flex Cd 10 - [id number] Implanted:Qty: 1 on 01/09/[address] [facility] Left: Knee [employer] 10/23/2017-5964-03 0- / / [id number] Femur Option Lps Er - [id number] Implanted:Qty: 1 on 08/17/[address] [facility] Right: Knee [employer] 06/22/2022-5764-01 5-52 / / [id number] Block Parmer Syls3 10 - [id number] Implanted:Qty: 1 on 08/17/[address] [facility] Right: Knee [employer] 02/20/2017 00-5886-06 3-10 / / [id number] Cement Antibiotic Bone - [id number] Implanted:Qty: 1 on 08/17/[address] [facility] Right: Knee TYESHA : ORTHOPAEDICS 03/22/2014 6197-9-010 / / [id number] Breast Implant 354-2514 Saline - [id number] Implanted:Qty: 1 on 02/03/[address] [facility] Left: Breast MENTOR [employer] 12/23/2016 354-2514 / [id number] / [id number] Graft Allomax 1.0 6x16 - [id number] Implanted:Qty: 1 on 02/03/[address] [facility] Left: Breast CR BARD : DAVOL 11/22/2018 [id number] / [id number] / [id number] Graft Allomax 1.0 6x16 - [id number] Implanted:Qty: 1 on 02/03/[address] [facility] Right: Breast CR BARD : DAVOL 11/22/2018 [id number] / [id number] / [id number] Breast Implant 354-2514 Saline - [id number] Implanted:Qty: 1 on 02/03/[address] [facility] Right: Breast [employer] 01/20/2017 354-2514 / [id number] / [id number] Implant Brst Krys Hp 350-6504bc - [id number] Implanted:Qty: 1 on 08/08/[address] [facility] Left: Breast [employer] 02/20/2017 350-6504BC / [id number] / [id number] Implant Brst Krys Hp 350-6504bc - [id number] Implanted:Qty: 1 on 08/08/[address] [facility] Right: Breast [employer] 10/22/2016 350-6504BC / [id number] / [id number] Cement Antibiotic Bone - [id number] Implanted:Qty: 4 on 09/07/2018 by Lauro Pabon MD at OR [facility] Left: Knee TYESHA : ORTHOPAEDICS 04/22/2019 6197-9-010 / / [id number] Restrictors Med Cmnt D526-2418 - [id number] Implanted:Qty: 1 on 09/07/2018 by Lauro Pabon MD at OR [facility] Left: Knee TYESHA : INSTRUMENTS 11/06/2022 I515-5605 / / [id number] Restrictors Med Cmnt C396-6306 - [id number] Implanted:Qty: 1 on 09/07/2018 by Lauro Pabon MD at OR [facility] Left: Knee TYESHA : INSTRUMENTS 02/11/2023 Z446-5513 / / [id number] Knee Baseplate Tri Tib Sz 2 - [id number] Implanted:Qty: 1 on 09/07/2018 by Lauro Pabon MD at OR [facility] Left: Knee TYESHA : ORTHOPAEDICS 10/21/2022 5521-B-200 / / [id number] Tri Cemented Stem 12x50 - [id number] Implanted:Qty: 1 on 09/07/2018 by Lauro Pabon MD at OR [facility] Left: Knee TYESHA : ORTHOPAEDICS 06/22/2023 5560-S-112 / / [id number] Triathlon Tritanium Tibial Symmetric Cone Augment Size A Implanted:Qty: 1 on 09/07/2018 by Lauro Pabon MD at OR [facility] Left: Knee TYESHA : ORTHOPAEDICS 07/21/2022 5549-A-110 / / [id number] Knee Triathlon Stab Sz3 L - [id number] Implanted:Qty: 1 on 09/07/2018 by Lauro Pabon MD at OR [facility] Left: Knee TYESHA : ORTHOPAEDICS 02/02/2023 5512-F-301 / / [id number] Triathlon Stem Investment Banking Associate 25 - [id number] Implanted:Qty: 1 on 09/07/2018 by Lauro Pabon MD at OR [facility] Left: Knee TYESHA : ORTHOPAEDICS 01/28/2023 5571-S-025 / / [id number] Tri Cemented Stem 12x50 - [id number] Implanted:Qty: 1 on 09/07/2018 by Lauro Pabon MD at OR [facility] Left: Knee TYESHA : ORTHOPA[employer]ICS 06/18/2023 5560-S-112 / / [id number] Knee Femoral Dist Aug 10 3 L - [id number] Implanted:Qty: 2 on 09/07/2018 by Lauro Pabon MD at OR [facility] Left: Knee TYESHA : ORTHOPAEDICS 07/10/2021 5541-A-301 / / [id number] Knee Tri Post Augment Sz3 10 - [id number] Implanted:Qty: 1 on 09/07/2018 by Lauro Pabon MD at OR [facility] Left: Knee TYESHA : ORTHOPAEDICS 01/29/2023 5544-A-300 / / [id number] Knee Tri Post Augment Sz3 5 - [id number] Implanted:Qty: 1 on 09/07/2018 by Lauro Pabon MD at OR [facility] Left: Knee TYESHA : ORTHOPAEDICS 12/11/2022 5543-A-300 / / [id number] Knee Tib Insr Plus X3 22 - [id number] Implanted:Qty: 1 on 09/07/2018 by Lauro Pabon MD at OR [facility] [facility] Left: Knee TYESHA : ORTHOPAEDICS 05/22/2019 5537-G-222 / / [id number] documented as of this encounter Visit Diagnoses Diagnosis Lumbar radicular pain- Primary Thoracic or lumbosacral neuritis or radiculitis, unspecified Spinal stenosis of lumbar region with neurogenic claudication Spinal stenosis, lumbar region, with neurogenic claudication Lumbar radiculopathy Thoracic or lumbosacral neuritis or radiculitis, unspecified documented in this encounter Advance Directives Documents on File Type Date Recorded Patient Rehabilitation Services Aide Expl anation Advance Directives and Living Will 02/02/2017 LIVING WILL Latest Code Status on File Code Status Date Activated Date Inactivated Comments Full Code 09/07/2018 5:22 PM 09/09/2018 8:32 PM Thi s order reflects the patients wishes and were consensually agreed upon. Question Answer Comments Discussion of Advance Directives occurred with: Patient Does the patient have a Living Will? No Does the patient have Health Care Power of Turpentine Distiller? No Code Status History Code Status Date Activated Date Inactivated Comments Full Code 09/07/2018 3:55 PM 09/07/2018 5:22 PM . Question Answer Comments Discussion of Advance Directives occurred with: Not Discussed Full Code 04/12/2015 9:47 AM 04/12/2015 5:31 PM This order reflects the patients wishes and were consensually agreed upon. Question Answer Comments Discussion of Advance Directives occurred with: Not Discussed Full Code 08/08/2014 3:55 PM 08/09/2014 3:14 PM Question Answer Comments Discussion of Advance Directives occurred with: Not Discussed Full Code 02/03/2014 2:20 PM 02/04/2014 4:11 PM This order reflects the patients wishes and were consensually agreed upon. Question Answer Comments Discussion of Advance Directives occurred with: Not Discussed Care Teams Management Sme Relationship Specialty Start Date End Date Quentin Silveira MD [address] [place] [address] PCP - General 01/03/02 documented as of this encounter
--- OUTSIDE RECORDS SUMMARY | 2024-02-25 12:59 | External Medical Summary | Summary of Care ---
Author Name Unknown Organization [facility] Address [address] [place] [address] Phone [phone] Care Team Providers Care Redipper Name Role Phone Quentin Silveira MD Primary Care Provider [phone] Reason for Visit * Reason Comments eRx-Medication Refill Encounter Details Date Type Department Care Team (Late st Contact Info) Description 02/10/2024 Refill [facility] [address] [place] [address] Quentin Silveira MD [address] [place] [address] HTN, goal below 140/90 Allergies Active Allergy Reactions Criticality Noted Date Comments Cephalexin Monohydrate Other (Please comment) High 07/22/1999 respiratory distress. Cephalosporins 12/28/2009 documented as of this encounter (statuses as of 02/11/2024) Medications Medication Sig Dispensed Refills Start Date End Date Status CALCIUM + D 600-200 MG-UNIT OR TABS 1 po qd 0 0 04/24/2005 Active MULTIPLE VITAMINS PO TABS 1 tab once a day 0 Active NATURAL SUPPLEMENTIndicatio ns:takes 2 daily Take by mouth daily. Natural laxatives from [employer] 0 Active Ascorbic Acid 125 MG Oral Tablet ChewableIndications :2 chews a day Take by mouth. 0 Active Baclofen 10 MG Oral Tablet (Lioresal) Take 1 Tablet (10 mg) by mouth in the morning and 1 Tablet (10 mg) before bedtime. 60 Tablet 0 11/06/2022 Active Additional Information Patient not taking.Reported on 12/04/2022 Probiotic Acidophilus BioBeads Oral Capsule Take 1 Capsule by mouth in the morning and 1 Capsule at noon and 1 Capsule in the evening. Take with meals. 0 Active Eye Health Oral Capsule Take by mouth . 0 Active Hair/Skin/Nails Oral Tablet Take 1 Tablet by mouth in the morning. 0 Active Triamcinolone Acetonide 0.1 % External Cream (Aristocort)Indicat ions:Irritant contact dermatitis due to plants, except food Apply topically to affected area 2 times a day. To affected area. 80 g 1 05/06/2023 Active Additional Information Patient not taking.Reported on 06/08/2023 Gabapentin 300 MG Oral Capsule (Neurontin)Indicati ons:Pain in both lower legs Take one tablet at bedtime x 5 days then increase to twice daily 90 Capsule 3 12/14/2023 Active methylPREDNISolone 4 MG Oral Tablet Therapy Pack (Medrol Dosepack)Indication s:Lumbar radicular pain follow package directions 21 Tablet 0 01/22/2024 Active Additional Information Patient not taking.Reported on 02/03/2024 Lisinopril 10 MG Oral Tablet (Prinivil)Indicatio ns:HTN, goal below 140/90 Take 1 Tablet by mouth in the morning. In the morning.. 90 Tablet 3 02/11/2024 Active Simvastatin 20 MG Oral Tablet (Zocor) Take 1 Tablet by mouth at bedtime. 90 Tablet 3 02/11/2024 Active hydroCHLOROthiazide 25 MG Oral Tablet (Hydrodiuril)Indica tions:HTN, goal below 140/90 Take 1 Tablet by mouth in the morning. In the morning.. 90 Tablet 3 02/11/2024 Active documented as of this encounter (statuses as of 02/11/2024) Active Problems Problem Noted Date Diagnosed Date [...] as of this encounter (statuses as of 02/11/2024) Resolved Problems Problem Noted Date Diagnosed Date Resolved Date Morbid obesity with body mas s index (BMI) of 40.0 to 44.9 in adult 11/25/2019 11/30/2020 Gouty arthropathy 12/08/2017 05/30/2020 Body mass index (BMI) of 40. 0 to 44.9 in adult 08/24/2017 12/08/2019 Overview: Per Obesity protocol #1 Genetic Sleep Disorder [facility] Other*[id number] 05/28/2012 07/01/2016 Severe obesity with body mas [...] as of this encounter (statuses as of 02/11/2024) Immunizations Name Administration Dates Next Due COVID-19 [...] No 09/07/2018 documented as of this encounter Miscellaneous Notes * Telephone Encounter - Philomena Sequeira RPh - 02/11/2024 5:51 AM EDT Refused Prescriptions: Disp Refills Lisinopril 10 MG Oral Tablet (Prinivil) 90 Tab*0 Sig: TAKE ONE TABLET BY MOUTH IN THE MORNINGRefused By: PHILOMENA SEQUEIRA for Refusal: Duplicate Request-- documented in this encounter Plan of Treatment Upcoming Encounters Date Type Department Care Team (Latest Contact Info) Description 02/17/2024 9:00 AM EDT Telemedicine Interventional Pain Center, [facility] [address] [place] [address] Estee Redd PA-C [address] [place] [address] 02/29/2024 1:30 PM EDT Imaging Radiology, [place] [id number] [facility] [place] [address] 03/14/2024 2:30 PM EDT Cardiac Studies Cardiac Studies, [facility] [address] [place] [address] 03/28/2024 10:30 AM EDT Hospital Encounter [facility], Operating Room [facility] [address] [place] [id number] Vasile Ojeda, DO [address] [place] [phone] 03/28/2024 10:30 AM EDT - 03/28/2024 10:55 AM EDT Surgery [facility], Operating Room [facility] [address] [place] [phone] Vasile Ojeda, DO [address] [place] [address] INJECTION SPINE LUMBAR OR SACRAL 06/09/2024 1:00 PM EDT Office Visit Neurology [facility] [place] [address] [place] [address] Johanna Cavazos MD [address] [place], [place] [address] 12/08/2024 11:00 AM EST Office Visit [facility] [address] [facility], [place] [phone] Quentin Silveira MD [address] [place], [place] [id number] Scheduled Procedures Name Priority Associated Diagnoses Date/Ti me INJECTION SPINE LUMBAR OR SACRAL Lumbar radiculopathy 03/28/2024 10:30 AM EDT COLONOSCOPY FLEXIBLE PROXIMAL DIAGNOSTIC Recall Special screening for malignant neoplasms, colon Health Maintenance Due Date Last Done Comments Cologuard 1995 Fecal Occult Blood Test 1995 Sigmoidoscopy 12/07/2008 12/07/2003 Zoster Vaccines (2 of 3) 11/28/2014 10/03/2014 DXA Scan 03/13/2021 03/13/2014, 06/24/2011 COVID-19 Vaccine (4 - season) 2023 10/28/2021, 03/06/2021, 02/13/2021 Depression Screening [...] this encounter Medical Devices Implanted Type Area Psychology Teacher Device Identifier Shelf Expiration Date Model / Serial / Lot Cement Bone R 1112-140-01 - [id number] Implanted:Qty: 1 on 01/09/2010 at [place] [facility] Left: Knee [employer] 04/23/2014 00-1112-14 0-01 / / [id number] Femur Nexgn D Left - [id number] Implanted:Qty: 1 on 01/09/2010 at [place] [facility] Left: Knee [employer] 10/23/2019-5996-01 4-51 / / [id number] Patella Poly Nexgen - [id number] Implanted:Qty: 1 on 01/09/2010 at [place] [facility] Left: Knee [employer] 11/23/2017-5972-06 5-32 / / [id number] Plate Tibial Flu - [id number] Implanted:Qty: 1 on 01/09/2010 at [place] [facility] Left: Knee [employer] 11/23/2019-5996-03 8- / / [id number] Surface Flex Cd 10 - [id number] Implanted:Qty: 1 on 01/09/2010 at [place] [facility] Left: Knee [employer] 10/23/2017-5964-03 0-10 / / [id number] Femur Option Lps Er - [id number] Implanted:Qty: 1 on 08/17/2012 at [place] [facility] Right: Knee [employer] 06/22/2022-5764-01 5-52 / / [id number] Block [place] Syls3 10 - [id number] Implanted:Qty: 1 on 08/17/2012 at [place] [facility] Right: Knee [employer] 02/20/2017-5886-06 3-10 / / [id number] Cement Antibiotic Bone - [id number] Implanted:Qty: 1 on 08/17/2012 at [place] [facility] Right: Knee TYESHA : ORTHOPAEDICS 03/22/2014 6197-9-010 / / [id number] Breast Implant 354-1514 [facility] [id number] Implanted:Qty: 1 on 02/03/2014 at [facility] Left: Breast MENTOR [employer]I 12/23/2016 354-2514 / [id number] / [id number] Graft Allomax 1.0 6x16 - [id number] Implanted:Qty: 1 on 02/03/2014 at [facility] Left: Breast CR BARD : DAVOL 11/22/2018 4006947N / [id number] / [id number] Graft Allomax 1.0 6x16 - [id number] Implanted:Qty: 1 on 02/03/2014 at [place] [facility] Right: Breast CR BARD : DAVOL 11/22/2018 9627848X / [id number] / [id number] Breast Implant 354-2514 Saline - [id number] Implanted:Qty: 1 on 02/03/2014 at [facility] Right: Breast [employer]I 01/20/2017 354-2514 / [id number] / [id number] Implant Brst Krys Hp 350-6504bc - [id number] Implanted:Qty: 1 on 08/08/2014 at [place] [facility] Left: Breast [employer] 02/20/2017 350-6504BC / [id number] / [id number] Implant Brst Krys Hp 350-6504bc - [id number] Implanted:Qty: 1 on 08/08/2014 at [place] [facility] Right: Breast [employer] 10/22/2016 350-6504BC / [id number] / [id number] Cement Antibiotic Bone - [id number] Implanted:Qty: 4 on 09/07/2018 by Lauro Pabon MD at [place] [facility] Left: Knee TYESHA : ORTHOPAEDICS 04/22/2019 6197-9-010 / / [id number] Restrictors Med Cmnt C915-0214 - [id number] Implanted:Qty: 1 on 09/07/2018 by Lauro Pabon MD at [facility] Left: Knee TYESHA : INSTRUMENTS 11/06/2022 I744-1416 / / [id number] Restrictors Med Cmnt Y374-2172 - [id number] Implanted:Qty: 1 on 09/07/2018 by Lauro Pabon MD at [place] [facility] Left: Knee TYESHA : INSTRUMENTS 02/11/2023 J395-3290 / / [id number] Knee Baseplate Tri Tib Sz 2 - [id number] Implanted:Qty: 1 on 09/07/2018 by Lauro Pabon MD at [place] [facility] Left: Knee TYESHA : ORTHOPAEDICS 10/21/2022 5521-B-200 / / [id number] Tri Cemented Stem 12x50 - [id number] Implanted:Qty: 1 on 09/07/2018 by Lauro Pabon MD at [place] [facility] Left: Knee TYESHA : ORTHOPAEDICS 06/22/2023 5560-S-112 / / [id number] Triathlon Tritanium Tibial Symmetric Cone Augment Size A Implanted:Qty: 1 on 09/07/2018 by Lauro Pabon MD at [place] [facility] Left: Knee TYESHA : ORTHOPAEDICS 07/21/2022 5549-A-110 / / [id number] Knee Triathlon Stab Sz3 L - [id number] Implanted:Qty: 1 on 09/07/2018 by Lauro Pabon MD at [place] [facility] Left: Knee TYESHA : ORTHOPAEDICS 02/02/2023 5512-F-301 / / [id number] Triathlon Stem Tack Cutter 25 - [id number] Implanted:Qty: 1 on 09/07/2018 by Lauro Pabon MD at [place] [facility] Left: Knee TYESHA : ORTHOPAEDICS 01/28/2023 5571-S-025 / / [id number] Tri Cemented Stem 12x50 - [id number] Implanted:Qty: 1 on 09/07/2018 by Lauro Pabon MD at [place] [facility] Left: Knee TYESHA : ORTHOPAEDICS 06/18/2023 5560-S-112 / / [id number] Knee Femoral Dist Aug 10 3 L - [id number] Implanted:Qty: 2 on 09/07/2018 by Lauro Pabon MD at [place] [facility] Left: Knee TYESHA : ORTHOPAEDICS 07/10/2021 5541-A-301 / / [id number] Knee Tri Post Augment Sz3 10 - [id number] Implanted:Qty: 1 on 09/07/2018 by Lauro Pabon MD at [place] [facility] Left: Knee TYESHA : ORTHOPAEDICS 01/29/2023 5544-A-300 / / [id number] Knee Tri Post Augment Sz3 5 - [id number] Implanted:Qty: 1 on 09/07/2018 by Lauro Pabon MD at [place] [facility] Left: Knee TYESHA : ORTHOPAEDICS 12/11/2022 5543-A-300 / / [id number] Knee Tib Insr Plus X3 22 - [id number] Implanted:Qty: 1 on 09/07/2018 by Lauro Pabon MD at [place] [facility] Left: Knee TYESHA : ORTHOPAEDICS 05/22/2019 5537-G-222 / / [id number] documented as of this encounter Visit Diagnoses Diagnosis HTN, goal below 140/90 Unspecified essential hypertension Lumbar radiculopathy Thoracic or lumbosacral neuritis or radiculitis, unspecified documented in this encounter Advance Directives Documents on File Type Date Recorded Patient Setter Cold Rolling Machine Expl anation Advance Directives and Living Will [...] the patient have Health Care Power of Oncology Rep Specialist? No Code Status History Code Status Date [...] Directives occurred with: Not Discussed Care Teams Redipper Relationship Specialty Start Date End Date Quentin Silveira MD [address] [place] [address] PCP - General 01/03/02 documented as of this encounter
--- OUTSIDE RECORDS SUMMARY | 2024-02-25 13:00 | External Medical Summary | Summary of Care ---
Author Name Unknown Organization [facility] Address [address] [place] [address] Phone [phone] Care Team Providers Care Customer Care Assistant Name Role Phone Quentin Silveira MD Primary Care Provider [phone] Reason for Referral * Precert (Within 10 days (routine)) - Authorized Specialty Diagnoses / Procedures Referred By Contac t Referred To Contact Cardiac Studies Diagnoses Mitral valve insufficiency, unspecified etiology Procedures ECHO, COMPLETE (2D), TRANS-THORACIC Jhonny Tobar DO [address] [place] [address] Referral ID Status Reason Start Date Expiration Date V isits Requested Visits Authorized [id number] Authorized Precert 02/03/2024 999 999 Reason for Visit * Reason Comments Follow Up * Evaluate & Treat - Unlimited Visits (Within 30 days (routine)) - Authorized Specialty Diagnoses / Procedures Referred By Contact Referred To Contact Cardiovascular Medicine / Cardiology Diagnoses Atrial dilatation, left Quentin Silveira MD [address] [place] [address] Referral ID Status Reason Start Date Expiration Date Visits Requested Visits Authorized [id number] Authorized Specialty Services Required 01/30/2024 999 999 Encounter Details Date Type Department Care Team (Late st Contact Info) Description 02/03/2024 9:30 AM EDT Office Visit Cardiology, [facility] [address] [place] [address] Jhonny Tobar, [address] [place] [address] Mitral valve insufficiency, unspecified etiology* Allergies Active Allergy Reactions Criticality Noted Date Comments Cephalexin Monohydrate Other (Please comment) High 07/22/1999 respiratory distress. Cephalosporins 12/28/2009 documented as of this encounter (statuses as of 02/03/2024) Medications Medication Sig Dispensed Refills Start Date [...] Additional Information Patient not taking.Reported on 06/08/2023 Lisinopril 10 MG Oral Tablet (Prinivil)Indicatio ns:HTN, goal below 140/90 TAKE ONE TABLET BY MOUTH IN THE MORNING 90 Tablet 0 10/26/2023 Active Simvastatin 20 MG Oral Tablet (Zocor) TAKE 1 TABLET BY MOUTH AT BEDTIME 90 Tablet 0 11/25/2023 Active hydroCHLOROthiazide 25 MG Oral Tablet (Hydrodiuril)Indica tions:HTN, goal below 140/90 TAKE ONE TABLET BY MOUTH IN THE MORNING 90 Tablet 0 11/25/2023 Active Gabapentin 300 MG Oral Capsule (Neurontin)Indicati ons:Pain in both lower legs Take one tablet at bedtime x 5 days then increase to twice daily 90 Capsule 3 12/14/2023 Active methylPREDNISolone 4 MG Oral Tablet Therapy Pack (Medrol Dosepack)Indication s:Lumbar radicular pain follow package directions 21 Tablet 0 01/22/2024 Active Additional Information Patient not taking.Reported on 02/03/2024 documented as of this encounter (statuses as of 02/03/2024) Active Problems Problem Noted Date Diagnosed Date [...] as of this encounter (statuses as of 02/03/2024) Resolved Problems Problem Noted Date Diagnosed Date Resolved Date Morbid obesity with body mas s index (BMI) of 40.0 to 44.9 in adult 11/25/2019 11/30/2020 Gouty arthropathy 12/08/2017 05/30/2020 Body mass index (BMI) of 40. 0 to 44.9 in adult 08/24/2017 12/08/2019 Overview: Per Obesity protocol #1 Genetic Sleep Disorder Resea [facility] Other*[id number] 05/28/2012 07/01/2016 Severe obesity with body mas [...] as of this encounter (statuses as of 02/03/2024) Immunizations Name Administration Dates Next Due COVID-19 mRNA, LNP-s, No Pre serve, 2-Dose Series (eOriginal) 10/28/2021,03/06/2021,02/13/2021 H1N1 2009 Influenza, IM 11/29/2009 PPD [...] on file documented as of this encounter Last Filed Vital Signs Vital Sign Reading Time Taken Comments Blood Pressure 154/74 02/03/2024 9:12 AM EDT Pulse 74 02/03/2024 9:12 AM EDT Temperature - - Respiratory Rate 16 02/03/2024 9:12 AM EDT Oxygen Saturation - - Inhaled Oxygen Concentration - - Weight 73.5 kg (162 lb) 02/03/2024 9:12 AM EDT Height - - Body Mass Index 33.86 12/07/2023 12:40 PM EST documented in this encounter Functional Status Functional Status Response [...] as of this encounter Progress Notes * Ekaterina Jhonny Manzanares, DO - 02/03/2024 9:28 AM EDT Cardiology Outpatient Consultation Daniel Singh is a 73 year old female referred by Quentin Silveira MD who is seen in consultation for valvular heart disease. The referring physician has requested evaluation and management of MR Davis HPI: This is a 73-year-old female with no prior history of heart disease. She does have a history of breast cancer with bilateral mastectomy and implants. She also is in a great deal pain today due to spinal stenosis and is under the care of the pain Clinic. Recently according the patient her PCP noticed a heart murmur and obtained an echocardiogram. Unfortunately, this study was done in [place] where we use a portable ultrasound machine and with the patient's history of bilateral mastectomies and implants the quality of the study was sub optimal. According to the report suggested left atrial enlargement and some mitral insufficiency. The patient has no prior history of heart disease. No ongoing symptoms such as progressive shortness of breath or activity related chest pain. No heart palpitations or tachycardia. Past Medical History: Diagnosis Date HTN, goal below 140/90 10/14/2004 HX: breast cancer 11/30/2013 SPINAL STENOSIS-LUMBAR 07/31/2009 Patient Active Problem List Diagnosis Code Cataract H26.9 Menopause Z78.0 HTN, goal below 140/90 I10 ADVANCE DIRECTIVE INFORMATION DUC on CPAP G47.33 Spinal stenosis of lumbar region without neurogenic claudication M48.061 Dyslipidemia, goal LDL below 100 E78.5 S/P TKR (total knee replacement) Z96.659 HX: breast cancer Z85.3 Prediabetes R73.03 Postoperative anemia due to acute blood loss D62 Right leg swelling M79.89 Burning pain R52 Polyneuropathy G62.9 Acquired hallux valgus of left foot M20.12 S/P mastectomy, bilateral Z90.13 Past Surgical History: Procedure Laterality Date ARTHROPLASTY KNEE TOTAL 08/17/2012 08/17/2012 RIGHT in [facility] ARTHROPLASTY KNEE TOTAL 04/08/2010 04/08/2010 LEFT knee replacement at [facility] BREAST CAPSULECTOMY, PERIPROSTHETIC 08/08/2014 PERIPROSTHETIC CAPSULECTOMY BREAST performed by Azeem Lynn MD at [facility] BREAST RECONSTRUCTION W/HR ADMINISTRATIVE ASSISTANT 02/03/2014 BREAST RECONSTRUCTION WITH TISSUE HR ADMINISTRATIVE ASSISTANT performed by Azeem Lynn MD at [facility] BX BREAST PERCUT W/O IMAGE 12/06/2013 12/06/2013 left breast core bx - invasive ductal carcinoma - Gómez's Macario - CARPAL TUNNEL SURGERY left CARPAL TUNNEL SURGERY right COLONOSCOPY 2008 repeat in 10 yrs COLONOSCOPY, DIAGNOSTIC (RECTUM) 02/21/2019 Melanosis, repeat 10 yrs/COLONOSCOPY FLEXIBLE PROXIMAL DIAGNOSTIC performed by Pierce Diaz MD at [facility] IDENTIFY SENTINEL NODE, RADIOACTIVE TRACER 02/03/2014 INJECTION PROCEDURE FOR IDENTIFICATION SENTINEL NODE performed by Stacy Magana MD at OR [facility] INFORMATION 05/1999 fx right ankle with plates and screws / [facility] MASTECTOMY, PARTIAL 05/02/2002 05/02/2002 LEFT partial mastectomy /slnb - Dr. Paulino MASTECTOMY, SIMPLE, COMPLETE 02/03/2014 MASTECTOMY SIMPLE COMPLETE performed by Stacy Magana MD at OR [facility] REMOVE CATARACT, INSERT LENS PROSTH 2001 2001 cataract removal - left REMOVE CATARACT, INSERT LENS PROSTH right cataract removal REMOVE TISSUE FOR GRAFT Left 04/12/2015 OBTAIN TISSUE GRAFTS OTHER performed by Azeem Lynn MD at OR [facility] REPLACE TISSUE HR ADMINISTRATIVE ASSISTANT 08/08/2014 REPLACEMENT EXPANDERS WITH PERMANENT PROSTHESIS performed by Azeem Lynn MD at OR [facility] REVISE KNEE JOINT REPLACEMENT Left 09/07/2018 TOTAL KNEE REVISION FEMUR AND TIBIA performed by Lauro Pabon MD at [facility] REVISION OF BREAST RECONSTRUCTION Right 04/12/2015 REVISION OF BREAST RECONSTRUCTION performed by Azeem Lynn MD at OR [facility] SHOULDER ARTHROSCOPY, DX ??? left shoulder SHOULDER ARTHROSCOPY, DX ??? right SKIN TISSUE REARRANGEMENT 08/08/2014 SKIN TISSUE REARRANGEMENT performed by Azeem Lynn MD at OR [facility] SKIN TISSUE REARRANGEMENT, ADD-ON 08/08/2014 SKIN TISSUE REARRANGEMENT, ADD-ON performed by Azeem Lynn MD at OR [facility] Family History Problem Relation Age of Onset Heart Disorder Father Lung Disorder Father Cancer Mother breast Hypertension Mother Arthritis Mother Social History Tobacco Use Smoking status: Never Smokeless tobacco: Never Vaping Use Vaping Use: Never used Substance Use Topics Alcohol use: Yes Comment: 1 glass of wine per night Drug use: No Review of patient's allergies indicates: Allergen Reactions Cephalexin Monohydrate Other (Please comment) respiratory distress. Cephalosporins Current Outpatient Medications Medication Sig Dispense Refill CALCIUM + D 600-200 MG-UNIT OR TABS 1 po qd 0 0 MULTIPLE VITAMINS PO TABS 1 tab once a day NATURAL SUPPLEMENT Take by mouth daily. Natural laxatives from [employer] Ascorbic Acid 125 MG Oral Tablet Chewable Take by mouth. Eye Health Oral Capsule Take by mouth . Hair/Skin/Nails Oral Tablet Take 1 Tablet by mouth in the morning. Lisinopril 10 MG Oral Tablet (Prinivil) TAKE ONE TABLET BY MOUTH IN THE MORNING 90 Tablet 0 Simvastatin 20 MG Oral Tablet (Zocor) TAKE 1 TABLET BY MOUTH AT BEDTIME 90 Tablet 0 hydroCHLOROthiazide 25 MG Oral Tablet (Hydrodiuril) TAKE ONE TABLET BY MOUTH IN THE MORNING 90 Tablet 0 Gabapentin 300 MG Oral Capsule (Neurontin) Take one tablet at bedtime x 5 days then increase to twice daily 90 Capsule 3 Baclofen 10 MG Oral Tablet (Lioresal) Take [...] meals. (Patient not taking: Reported on 02/03/2024) Triamcinolone Acetonide 0.1 % External Cream (Aristocort) Apply topically to affected area 2 times a day. To affected area. (Patient not taking: Reported on 06/08/2023) 80 g 1 methylPREDNISolone 4 MG Oral Tablet Therapy Pack (Medrol Dosepack) follow package directions (Patient not taking: Reported on 02/03/2024) 21 Tablet 0 No current facility-administered medications for this visit. ROS: Review of Systems: See HPI for pertinent positives. All other review of systems is negative. PHYSICAL EXAMINATION BP 154/74 | Pulse 74 | Resp 16 | Wt 73.5 kg (162 lb) | LMP 01/21/2001 | BMI 33.86 kg/m | BSA 1.73m Body mass index is 33.86 kg/m. General: no acute distress and stated age Head: normocephalic, no masses, lesions, tenderness or abnormalities Eyes: conjunctiva are pink and non-injected, sclera clear Neck: supple, no adenopathy, no bruits, normal jugular venous pulse, no hepatojugular reflux Chest: normal shape and normal respiratory effort Lungs: clear to auscultation and percussion Cardiac Exam: - regular rate & rhythm, no murmurs gallops or rubs - normal S1, normal S2 Pulses: 2(+) throughout Abdomen: abdomen soft, non-tender, no abnormal masses and no hepatosplenomegaly Musculoskeletal: no gait disturbance, no joint inflammation, no deforming arthritis Extremities: no edema and no cyanosis Neuro: grossly normal exam Laboratory Data Review: Echocardiogram January 2024: Interpretation Summary The study is of technically limited quality. The LV wall thickness is mildly increased (concentric). The left ventricular wall motion is normal by limited analysis. All left ventricular segments are not visualized. The qualitative LV ejection fraction is 55-59% (normal). The left atrium is severely enlarged. The left ventricular diastolic function is moderately abnormal (grade II). There is focal calcification of the sub mitral valve apparatus. There is no evidence of pulmonary hypertension. Consider repeat study at a fixed site with images on the [employer] ultrasound cart to improve visualization. Impression: This is a 73-year-old female with no previous cardiac history and no current cardiac symptoms. The patient had a recent echocardiogram completed which was of poor quality due to a combination of a history of bilateral mastectomy for breast cancer with implants along with portable equipment. I reviewed this study myself and it is of poor quality but I do not agree that the left atrium is markedly dilated and I do not believe that there is significant MR. Of note, I did not hear a murmur today. Plan: I think the best option as indicated in the report is to repeat the study at a fixed site with a dedicated ultrasound machine which we have a Pj Macario. After some discussion the patient is agreeable to this plan. The only other option would be to proceed with a DAKOTAH which I believe is not indicated at this time. Once the echocardiogram has been repeated. Patient will have follow-up with us. This chart was completed in part utilizing dough Speech Voice Recognition Software. Grammatical errors, random word insertions, prounoun errors, and incomplete sentences are an occasional consequence of this system due to software limitations, ambient noise, and hardware issues. Any formal questions or concerns about the content, text, or information contained within the body of this dictation should be directly addressed to the provider for clarification. I spent a total of 40-54 minutes (exact time 50 mins) on the date of service in preparation, delivery, and documentation of the care provided to Raysa Singh excluding any time spent in the performance of separately billed services. Jhonny Tobar DO Cardiology[address] [address] 02/03/2024 documented in this encounter Nursing Notes * Casey Dawn RN - 02/03/2024 9:15 AM EDT Examination Room: room 16 Name: Raysa Singh Date of : (1950). Reason for Visit: for follow up Interim Hospitalization(s): denies Problems/Concerns: spine issues; worried about her heart Chest Pain/SOB: denies [facility] Discussed: Not applicable [facility] is a way you can talk to your provider online through e-mail. Would you like to sign up? I can activate it for you? ALREADY ACTIVE Patient was instructed to not get up on the exam table until directed and assisted by their provider; patient is to remain seated in the chair/ wheelchair/ exam table for fall prevention and safety reasons. Patient is aware to have assistance to step down off exam table with personnel. Patient voiced full comprehension of instructions. documented in this encounter Plan of Treatment Upcoming Encounters Date Type Department Care Team (Latest Contact Info) Description 02/10/2024 2:00 PM EDT [facility] [address] [place] [address] 02/17/2024 9:00 AM EDT Telemedicine Interventional Pain Center, [facility] [address] [place] [address] Estee Redd PA-C [address] [place] [address] 02/29/2024 1:30 PM EDT Imaging Radiology, [address] [place] [address] 03/14/2024 2:30 PM EDT Cardiac Studies Cardiac Studies, [facility] [address] [place] [address] 03/28/2024 10:30 AM EDT Hospital Encounter [facility], Operating Room [facility] [address] [place] [phone] Vasile Ojeda, [address] [place] [phone] 03/28/2024 10:30 AM EDT - 03/28/2024 10:55 AM EDT Surgery [facility], Operating Room [facility] [address] [place] [phone] Vasile Ojeda, [address] [place] [phone] INJECTION SPINE LUMBAR OR [facility] 06/09/2024 1:00 PM EDT Office Visit Neurology [facility] [address] [place] [address] Johanna Cavazos MD [address] [place] [address] 12/08/2024 11:00 AM EST Office Visit Family Practice, [place] [address] [place] [facility] [place] [address] Quentin Silveira MD [address] [facility] [place] [id number] Scheduled Orders Name Type Priority Associated Diagnoses Orde r Schedule EKG COMPLETE (TRACING AND INTERP) EKG Routine Mitral valve insufficiency, unspecified etiology Ordered: 02/03/2024 ECHO, COMPLETE (2D), TRANS-THORACIC Echocardiology Routine Mitral valve insufficiency, unspecified etiology Expected: 02/03/2024, Expires: 06/04/2024 Scheduled Procedures Name Priority Associated Diagnoses Date/Ti [...] 11/21/2021, Additional history exists Colonoscopy 02/21/2029 02/21/2019, 04/0 11/2018, 01/08/2009 Colorectal Cancer Screening 02/21/2029 DTaP,Tdap,and Td [...] this encounter Medical Devices Implanted Type Area Store Merchandiser Device Identifier Shelf Expiration Date Model / Serial / Lot Cement Bone R 1112-140-01 - [id number] Implanted:Qty: 1 on 01/09/2010 at OR [facility] Left: Knee [employer] 04/23/2014 00-1112-14 0- / [id number] Femur Nexgn D Left - [id number] Implanted:Qty: 1 on 01/09/2010 at OR [facility] Left: Knee [employer] 10/23/2019-5996-01 4-51 / / [id number] Patella Poly Nexgen - [id number] Implanted:Qty: 1 on 01/09/2010 at OR [facility] Left: Knee [employer] 11/23/2017-5972-06 5-32 / / [id number] Plate Tibial Flu - [id number] Implanted:Qty: 1 on 01/09/2010 at OR [facility] Left: Knee [employer] 11/23/2019-5996-03 8- / [id number] Surface Flex Cd 10 - [id number] Implanted:Qty: 1 on 01/09/2010 at OR [facility] Left: Knee [employer] 10/23/2017-5964-03 0- / / [id number] Femur Option Lps Er - [id number] Implanted:Qty: 1 on 08/17/2012 at OR [facility] Right: Knee [employer] 06/22/2022-5764-01 5-52 / / [id number] Block [place] Syls3 10 - [id number] Implanted:Qty: 1 on 08/17/2012 at OR [facility] Right: Knee [employer] 02/20/2017 00-5886-06 3-10 / / [id number] Cement Antibiotic Bone - [id number] Implanted:Qty: 1 on 08/17/2012 at OR [facility] Right: Knee TYESHA : ORTHOPAEDICS 03/22/2014 6197-9-010 / / [id number] Breast Implant 354-2514 Saline - [id number] Implanted:Qty: 1 on 02/03/2014 at OR [facility] Left: Breast MENTOR GOPI 12/23/2016 354-2514 / [id number] / [id number] Graft Allomax 1.0 6x16 - [id number] Implanted:Qty: 1 on 02/03/2014 at OR [facility] Left: Breast CR BARD : DAVOL 11/22/2018 3761397M / [id number] / [id number] Graft Allomax 1.0 6x16 - [id number] Implanted:Qty: 1 on 02/03/2014 at OR [facility] Right: Breast CR BARD : DAVOL 11/22/2018 9025598Q / [id number] / [id number] Breast Implant 354-2514 Saline - [id number] Implanted:Qty: 1 on 02/03/2014 at OR [facility] Right: Breast MENTOR GOPI 01/20/2017 354-2514 / [id number] / [id number] Implant Brst Krys Hp 350-6504bc - [id number] Implanted:Qty: 1 on 08/08/2014 at OR [facility] Left: Breast MENTOR GOPI 02/20/2017 350-6504BC / [id number] 9 / [id number] Implant Brst Krys Hp 350-6504bc - [id number] Implanted:Qty: 1 on 08/08/2014 at OR [facility] Right: Breast MENTOR GOPI 10/22/2016 350-6504BC / [id number] / [id number] Cement Antibiotic Bone - [id number] Implanted:Qty: 4 on 09/07/2018 by Lauro Pabon MD at OR [facility] Left: Knee TYESHA : ORTHOPAEDICS 04/22/2019 6197-9-010 / / [id number] Restrictors Med Cmnt C113-5473 - [id number] Implanted:Qty: 1 on 09/07/2018 by Lauro Pabon MD at OR [facility] Left: Knee TYESHA : INSTRUMENTS 11/06/2022 R195-4448 / / [id number] Restrictors Med Cmnt X990-7199 - [id number] Implanted:Qty: 1 on 09/07/2018 by Lauro Pabon MD at OR [facility] Left: Knee TYESHA : INSTRUMENTS 02/11/2023 L911-1713 / / [id number] Knee Baseplate Tri Tib Sz 2 - [id number] Implanted:Qty: 1 on 09/07/2018 by Lauro Pabon MD at OR [facility] Left: Knee TYESHA : ORTHOPAEDICS 10/21/2022 5521-B-200 / / [id number] Tri Cemented Stem 12x50 - [id number] Implanted:Qty: 1 on 09/07/2018 by Lauro Pabon MD at OR [facility] Left: Knee TYESHA : ORTHOPAEDICS 06/22/2023 5560-S-112 / / [id number] Triathlon Tritanium Tibial Symmetric Cone Augment Size A Implanted:Qty: 1 on 09/07/2018 by Lauro Pabon MD at OR [facility] Left: Knee TYESHA : ORTHOPAEDICS 07/21/2022 5549-A-110 / / [id number] Knee Triathlon Stab Sz3 L - [id number] Implanted:Qty: 1 on 09/07/2018 by Lauro Pabon MD at OR [facility] Left: Knee TYESHA : ORTHOPAEDICS 02/02/2023 5512-F-301 / / [id number] Triathlon Stem Cargo Worker 25 - [id number] Implanted:Qty: 1 on 09/07/2018 by Lauro Pabon MD at OR [facility] Left: Knee TYESHA : ORTHOPAEDICS 01/28/2023 5571-S-025 / / [id number] Tri Cemented Stem 12x50 - [id number] Implanted:Qty: 1 on 09/07/2018 by Lauro Pabon MD at OR [facility] Left: Knee TYESHA : ORTHOPAEDICS 06/18/2023 5560-S-112 / / [id number] Knee Femoral Dist Aug 10 3 L - [id number] Implanted:Qty: 2 on 09/07/2018 by Lauro Pabon MD at OR [facility] Left: Knee TYESHA : ORTHOPAEDICS 07/10/2021 5541-A-301 / / [id number] Knee Tri Post Augment Sz3 10 - [id number] Implanted:Qty: 1 on 09/07/2018 by Lauro Pabon MD at OR [facility] Left: Knee TYESHA : ORTHOPAEDICS 01/29/2023 5544-A-300 / / [id number] Knee Tri Post Augment Sz3 5 - [id number] Implanted:Qty: 1 on 09/07/2018 by Lauro Pabon MD at OR [facility] Left: Knee TYESHA : ORTHOPAEDICS 12/11/2022 5543-A-300 / / [id number] Knee Tib Insr Plus X3 22 - [id number] Implanted:Qty: 1 on 09/07/2018 by Lauro Pabon MD at OR [facility] Left: Knee TEYSHA : ORTHOPAEDICS 05/22/2019 5537-G-222 / / [id number] documented as of this encounter Visit Diagnoses Diagnosis Mitral valve insufficiency, unspecified etiology- Primary Lumbar radiculopathy Thoracic or lumbosacral neuritis or radiculitis, unspecified documented in this encounter Advance Directives Documents on File Type Date Recorded Patient 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 No Code Status History Code Status Date [...] Directives occurred with: Not Discussed Care Teams Customer Care Assistant Relationship Specialty Start Date End Date Quentin Silveira MD [address] [place] [address] PCP - General 01/03/02 documented as of this encounter"
--- OUTSIDE RECORDS SUMMARY | 2024-02-25 13:00 | External Medical Summary | Summary of Care ---
Author Name Unknown Organization [facility] Address [address] [place] [address] Phone [phone] Care Team Providers Care Steam Shovelman Name Role Phone Quentin Silveira MD Primary Care Provider [phone] Reason for Visit * Reason Onset Date Comments Films 02/10/2024 Encounter Details Date Type Department Care Team (Late st Contact Info) Description 02/10/2024 Telephone Radiology Film File [address], [place] [phone] Estee Redd PA-C [address] [facility] [place] [address] Films Allergies Active Allergy Reactions Criticality Noted Date Comments Cephalexin Monohydrate Other (Please comment) High 07/22/1999 respiratory distress. Cephalosporins 12/28/2009 documented as of this encounter (statuses as of 02/10/2024) Medications Medication Sig Dispensed Refills Start Date [...] as of this encounter (statuses as of 02/10/2024) Active Problems Problem Noted Date Diagnosed Date [...] as of this encounter (statuses as of 02/10/2024) Resolved Problems Problem Noted Date Diagnosed Date Resolved Date Morbid obesity with body mas s index (BMI) of 40.0 to 44.9 in adult 11/25/2019 11/30/2020 Gouty arthropathy 12/08/2017 05/30/2020 Body mass index (BMI) of 40. 0 to 44.9 in adult 08/24/2017 12/08/2019 Overview: Per Obesity protocol #1 Genetic Sleep Disorder Resea [facility] Other*[id number] 05/28/2012 07/01/2016 Severe obesity with body mas [...] as of this encounter (statuses as of 02/10/2024) Immunizations Name Administration Dates Next Due COVID-19 mRNA, LNP-s, No Pre serve, 2-Dose Series (Pfizer) 10/28/2021,03/06/2021,02/13/2021 Diptheria/Tetanus (Adult) 11/24/1987 H1N1 2009 Influenza, IM 11/29/2009 PPD 10/24/2020,10/15/2020 [...] Split, I IV3, With Preserve, Inj 08/09/2015,07/25/2014,09/23/2013,07/25,10/09/2011,09/27/2010,11/29/19 10,09/14/2008,10/06/2007,09/11/2006,1 ,09/08/2002 07/25/2015 TD - Tetanus/Diptheria (ADULT) 10/14/2004 1 12/14/2013 TDAP (age 10 and older)(Boostrix) 05/25/2019 TDAP [...] encounter Miscellaneous Notes * Telephone Encounter - Claudia Motta OSA - 02/10/2024 2:48 PM EDT Patient requested for 01-22-24 xray and 02-10-24 MRI Image(s) be prepared and available for pickup Disc created - patient in office at [facility] Patient/sales service representative signed patient right of access form and received disc in office. documented in this encounter Plan of Treatment Upcoming Encounters Date Type Department Care Team (Latest Contact Info) Description 02/17/2024 9:00 AM EDT Telemedicine Interventional Pain Center, [address] [place] [id number] Estee Redd PA-C [address] [place] [address] 02/29/2024 1:30 PM EDT Imaging Radiology, [facility] [address] [facility] [place] [address] 03/14/2024 2:30 PM EDT Cardiac Studies Cardiac Studies, [facility] [address] [place] [address] 03/28/2024 10:30 AM EDT Hospital Encounter [facility], Operating Room [facility] [address] [place] [phone] Vasile Ojeda, [address] [place] [phone] 03/28/2024 10:30 AM EDT - 03/28/2024 10:55 AM EDT Surgery [facility], Operating Room [facility] [address] [place] [phone] Vasile Ojeda, [address] [place] [phone] INJECTION SPINE LUMBAR OR SACRAL 06/09/2024 1:00 PM EDT Office Visit Neurology [facility] [address] [facility] [place] [address] Johanna Cavazos MD [address] [facility] [place] [address] 12/08/2024 11:00 AM EST [facility] [address] [facility] [address] Quentin Silveira MD [address] [facility] [place] [phone] Scheduled Procedures Name Priority Associated Diagnoses Date/Ti [...] 11/21/2021, Additional history exists Colonoscopy 02/21/2029 02/21/2019, 11/2018, 01/08/2009 Colorectal Cancer Screening 02/21/2029 DTaP,Tdap,and [...] this encounter Medical Devices Implanted Type Area Assistant Scientist Device Identifier Shelf Expiration Date Model / Serial / Lot Cement Bone R 1112-140-01 - [id number] Implanted:Qty: 1 on 01/09/2010 at [place] [facility] Left: Knee [employer]IOLET INC 04/23/2014 00-1112-14 0-01 / / [id number] Femur Nexgn D Left - [id number] Implanted:Qty: 1 on 01/09/2010 at [place] [facility] Left: Knee [employer]LET [employer] 10/23/2019-5996-01 4-51 / / [id number] Patella Poly Nexgen - [id number] Implanted:Qty: 1 on 01/09/2010 at [place] [facility] Left: Knee [employer]LET [employer] 11/23/2017-5972-06 5-32 / / [id number] Plate Tibial Flu - [id number] Implanted:Qty: 1 on 01/09/2010 at OR [facility] Left: Knee [employer] 11/23/2019-5996-03 8-01 / / [id number] Surface Flex Cd 10 - [id number] Implanted:Qty: 1 on 01/09/2010 at OR [facility] Left: Knee [employer] 10/23/2017-5964-03 0-10 / / [id number] Femur Option Lps Er - [id number] Implanted:Qty: 1 on 08/17/2012 at [place] [facility] Right: Knee [employer]LET [employer] 06/22/2022-5764-01 5-52 / / [id number] Block [place] Syls3 10 - [id number] Implanted:Qty: 1 on 08/17/2012 at [place] [facility] Right: Knee [employer]LET INC 02/20/2017-5886-06 3-10 / / [id number] Cement Antibiotic Bone - [id number] Implanted:Qty: 1 on 08/17/2012 at OR [facility] Right: Knee TYESHA : ORTHOPAEDICS 03/22/2014 6197-9-010 / / [id number] Breast Implant 354-2514 Mahomet - [id number] Implanted:Qty: 1 on 02/03/2014 at [place] [facility] Left: Breast MENTOR GOPI 12/23/2016 354-2514 / [id number] Graft Allomax 1.0 6x16 - [id number] Implanted:Qty: 1 on 02/03/2014 at [place] [facility] Left: Breast CR BARD : DAVOL 11/22/2018 3721350C / [id number] / [id number] Graft Allomax 1.0 6x16 - [id number] Implanted:Qty: 1 on 02/03/2014 at [place] [facility] Right: Breast CR BARD : DAVOL 11/22/2018 2093487K / [id number] / [id number] Breast Implant 354-2514 Saline - [id number] Implanted:Qty: 1 on 02/03/2014 at [place] [facility] Right: Breast MENTOR GOPI 01/20/2017 354-2514 / [id number] / [id number] Implant Brst Krys Hp 350-6504bc - [id number] Implanted:Qty: 1 on 08/08/2014 at OR [facility] Left: Breast MENTOR GOPI 02/20/2017 350-6504BC / [id number] / [id number] Implant Brst Krys Hp 350-6504bc - [id number] Implanted:Qty: 1 on 08/08/2014 at [place] [facility] Right: Breast MENTOR GOPI 10/22/2016 350-6504BC / [id number] / [id number] Cement Antibiotic Bone - [id number] Implanted:Qty: 4 on 09/07/2018 by Lauro Pabon MD at OR [facility] Left: Knee TYESHA : ORTHOPAEDICS 04/22/2019 6197-9-010 / / [id number] Restrictors Med Cmnt K801-9320 - [id number] Implanted:Qty: 1 on 09/07/2018 by Lauro Pabon MD at OR [facility] Left: Knee TYESHA : INSTRUMENTS 11/06/2022 X927-4463 / / [id number] Restrictors Med Cmnt M818-0742 - [id number] Implanted:Qty: 1 on 09/07/2018 by Lauro Pabon MD at OR [facility] Left: Knee TYESHA : INSTRUMENTS 02/11/2023 Q950-9486 / / [id number] Knee Baseplate Tri Tib Sz 2 - [id number] Implanted:Qty: 1 on 09/07/2018 by Lauro Pabon MD at OR [facility] Left: Knee TYESHA : ORTHOPAEDICS 10/21/2022 5521-B-200 / / [id number] Tri Cemented Stem 12x50 - [id number] Implanted:Qty: 1 on 09/07/2018 by Lauro Pabon MD at OR [facility] Left: Knee TYESHA : ORTHOPAEDICS 06/22/2023 5560-S-112 / / [id number] Triathlon Tritanium Tibial Symmetric Cone Augment Size A Implanted:Qty: 1 on 09/07/2018 by Lauro Pabon MD at OR [facility] Left: Knee TYESHA : ORTHOPAEDICS 07/21/2022 5549-A-110 / / [id number] Knee Triathlon Stab Sz3 L - [id number] Implanted:Qty: 1 on 09/07/2018 by Lauro Pabon MD at [place] [facility] Left: Knee TYESHA : ORTHOPAEDICS 02/02/2023 5512-F-301 / / [id number] Triathlon Stem Cheesemaker 25 - [id number] Implanted:Qty: 1 on 09/07/2018 by Lauro Pabon MD at OR [facility] Left: Knee TYESHA : ORTHOPAEDICS 01/28/2023 5571-S-025 / / [id number] Tri Cemented Stem 12x50 - [id number] Implanted:Qty: 1 on 09/07/2018 by Lauro Pabon MD at OR [facility] Left: Knee TYESHA : ORTHOPAEDICS 06/18/2023 5560-S-112 / / [id number] Knee Femoral Dist Aug 10 3 L - [id number] Implanted:Qty: 2 on 09/07/2018 by Lauro Pabon MD at OR [facility] Left: Knee TYESHA : ORTHOPAEDICS 07/10/2021 5541-A-301 / / [id number] Knee Tri Post Augment Sz3 10 - [id number] Implanted:Qty: 1 on 09/07/2018 by Lauro Pabon MD at OR [facility] Left: Knee TYESHA : ORTHOPAEDICS 01/29/2023 5544-A-300 / / [id number] Knee Tri Post Augment Sz3 5 - [id number] Implanted:Qty: 1 on 09/07/2018 by Lauro Pabon MD at OR [facility] Left: Knee TYESHA : ORTHOPAEDICS 12/11/2022 5543-A-300 / / [id number] Knee Tib Insr Plus X3 22 - [id number] Implanted:Qty: 1 on 09/07/2018 by Lauro Pabon MD at OR [facility] Left: Knee TYESHA : ORTHOPAEDICS 05/22/2019 5537-G-222 / / [id number] documented as of this encounter Advance Directives Documents on File Type Date Recorded Patient Saw Maker Expl anation Advance Directives and Living Will [...] the patient have Health Care Power of Puppy Trainer? No Code Status History Code Status Date [...] Directives occurred with: Not Discussed Care Teams Steam Shovelman Relationship Specialty Start Date End Date Quentin Silveira MD [address] [place] [address] PCP - General 01/03/02 documented as of this encounter
--- OUTSIDE RECORDS SUMMARY | 2024-02-25 13:00 | External Medical Summary | Summary of Care ---
Author Name Unknown Organization [facility] Address [address] [place] [address] Phone [phone] Care Team Providers Care Two Needle Machine Operator Name Role Phone Quentin Silveira MD Primary Care Provider [phone] Reason for Referral * Evaluate & Treat - Unlimited Visits (Within 30 days (routine)) - Authorized Specialty Diagnoses / Procedures Referred By Contact Referred To Contact Cardiovascular Medicine / Cardiology Diagnoses Atrial dilatation, left Quentin Silveira MD [address] [place] [address] Referral ID Status Reason Start Date Expiration Date Visits Requested Visits Authorized [id number] Authorized Specialty Services Required 01/30/2024 999 999 Question Answer Referral Priority Within 30 days (routine) Where should this appointment be scheduled? [facility] To which of the following clinics are you referring your patient? General Cardiology Clinic Comments Possible mitral regurg. Dilated left atrium. Syst murmer. Suboptimal echo Reason for Visit * Reason Onset Date Comments Test Results 01/30/2024 Encounter Details Date Type Department Care Team (Late st Contact Info) Description 01/30/[address] [facility] [address] [place] [facility] [place] [address] Quentin Silveira MD [address] [place] [address] Test Results Allergies Active Allergy Reactions Criticality Noted Date Comments Cephalexin Monohydrate Other (Please comment) High 07/22/1999 respiratory distress. Cephalosporins 12/28/2009 documented as of this encounter (statuses as of 02/01/2024) Medications Medication Sig Dispensed Refills Start Date End Date Status CALCIUM + D 600-200 MG-UNIT OR TABS 1 po qd 0 0 04/24/2005 Active MULTIPLE VITAMINS PO TABS 1 tab once a day 0 Active NATURAL SUPPLEMENTIndicatio ns:takes 2 daily Take by mouth daily. Natural laxatives from [email or web address] 0 Active Ascorbic Acid 125 MG Oral [...] package directions 21 Tablet 0 01/22/2024 Active documented as of this encounter (statuses as of 02/01/2024) Active Problems Problem Noted Date Diagnosed Date [...] as of this encounter (statuses as of 02/01/2024) Resolved Problems Problem Noted Date Diagnosed Date Resolved Date Morbid obesity with body mas s index (BMI) of 40.0 to 44.9 in adult 11/25/2019 11/30/2020 Gouty arthropathy 12/08/2017 05/30/2020 Body mass index (BMI) of 40. 0 to 44.9 in adult 08/24/2017 12/08/2019 Overview: Per Obesity protocol #1 Genetic Sleep Disorder Resea [facility] Other*[id number] 05/28/2012 07/01/2016 Severe obesity with body mas [...] as of this encounter (statuses as of 02/01/2024) Immunizations Name Administration Dates Next Due COVID-19 mRNA, LNP-s, No Pre serve, 2-Dose Series ([place]) 10/28/2021,03/06/2021,02/13/2021 Diptheria/Tetanus (Adult) 11/24/1987 H1N1 2009 Influenza, [...] encounter Miscellaneous Notes * Telephone Encounter - Anayeli Mackey OSA - 02/01/2024 3:57 PM EDT Done.02/01/2024 * Telephone Encounter - Milagro Pardo LPN - 02/01/2024 3:23 PM EDT Patient returned call. Informed of message. Verbalized understanding. * Telephone Encounter - Jesi Bagley LPN - 02/01/2024 2:06 PM EDT Left message for pt to call back. * Telephone Encounter - Quentin Silveira MD - 01/30/2024 9:51 AM EST Notify: Echo shows no definite valve problem but the visibility on the exam was not as good as would have been liked. The left atrium (one of the 4 chambers of the heart) is dilated. This is not causing a problem now. I suggest we have her see cardiology especially since the echo could not give a real good picture of the mitral valve. There may be leaking around the mitral valve and that could cause the murmer heard as well as enlarged left atrium. documented in this encounter Plan of Treatment Upcoming Encounters Date Type Department Care Team (Latest Contact Info) Description 02/03/2024 9:30 AM EDT Office Visit Cardiology, [facility] [address] [place] [address] Jhonny Tobar, [address] [place] [address] 02/10/2024 2:00 PM EDT Imaging Radiology [address] [place] [address] 02/25/2024 9:30 AM EDT Telemedicine Interventional Pain Center, [facility] [address] [place] [address] Estee Redd PA-C [address] [place] [address] 02/29/2024 1:30 PM EDT Imaging [place], [address] [place] [address] 03/28/2024 10:30 AM EDT Hospital Encounter [facility], Operating Room [facility] [address] [place] [address] Vasile Ojeda, [address] [place] [address] 03/28/2024 10:30 AM EDT - 03/28/2024 10:55 AM EDT Surgery [facility], Operating Room [facility] [address] [place] [phone] Vasile Ojeda, [address] [place] [address] INJECTION SPINE LUMBAR OR SACRAL 06/09/2024 1:00 PM EDT Office Visit Neurology [facility] [place] [address] [facility] [place] [address] Johanna Cavazos MD [address] [facility] [place] [address] 12/08/2024 11:00 AM EST Office Visit [facility] [address] [place] [phone] Quentin Silveira MD [address], [place] [phone] Scheduled Procedures Name Priority Associated Diagnoses Date/Ti me INJECTION SPINE LUMBAR OR SACRAL Lumbar radiculopathy 03/28/2024 10:30 AM EDT COLONOSCOPY FLEXIBLE PROXIMAL DIAGNOSTIC Recall Special screening for malignant neoplasms, colon Scheduled Referrals Name Type Priority Associated Diagnoses Orde r Schedule CARDIOLOGY REFERRAL OP Referral Within 30 days (routine) Atrial dilatation, left Ordered: 01/30/2024 Health Maintenance Due Date Last Done Comments [...] 11/21/2021, Additional history exists Colonoscopy 02/21/2029 02/21/2019, 0411/2018, 01/08/2009 Colorectal Cancer Screening 02/21/2029 DTaP,Tdap,and Td [...] this encounter Medical Devices Implanted Type Area Fire Control Officer Device Identifier Shelf Expiration Date Model / Serial / Lot Cement Bone R 1112-140-01 - [id number] Implanted:Qty: 1 on 01/09/2010 at OR [facility] Left: Knee VIOLET INC 04/23/2014 00-1112-14 0-01 / / [id number] Femur Nexgn D Left - [id number] Implanted:Qty: 1 on 01/09/2010 at OR [facility] Left: Knee V[employer] INC 10/23/2019-5996-01 4-51 / / [id number] Patella Poly Nexgen - [id number] Implanted:Qty: 1 on 01/09/2010 at OR [facility] Left: Knee [employer]LET INC 11/23/2017-5972-06 5-32 / / [id number] Plate Tibial Flu - [id number] Implanted:Qty: 1 on 01/09/2010 at OR [facility] Left: Knee V[employer]LET INC 11/23/20195996-03 8- / / [id number] Surface Flex Cd 10 - [id number] Implanted:Qty: 1 on 01/09/2010 at OR [facility] Left: Knee V[employer]LET INC 10/23/2017-5964-03 0-10 / / [id number] Femur Option Lps Er - [id number] Implanted:Qty: 1 on 08/17/2012 at OR [facility] Right: Knee VIOLET INC 06/22/2022-5764-01 5-52 / / [id number] Block Yadkin Syls3 10 - [id number] Implanted:Qty: 1 on 08/17/2012 at OR [facility] Right: Knee V[employer]LET INC 02/20/20175886-06 3-10 / / [id number] Cement Antibiotic Bone - [id number] Implanted:Qty: 1 on 08/17/2012 at OR [facility] Right: Knee TYESHA : ORTHOPAEDICS 03/22/2014 6197-9-010 / / [id number] Breast Implant 354-5944 [facility] [id number] Implanted:Qty: 1 on 02/03/2014 at OR [facility] Left: Breast MENTOR GOPI 12/23/2016 354-2514 / [id number] 5 / [id number] Graft Allomax 1.0 6x16 - [id number] Implanted:Qty: 1 on 02/03/2014 at OR [facility] Left: Breast CR BARD : DAVOL 11/22/2018 3747281I / [id number] / [id number] Graft Allomax 1.0 6x16 - [id number] Implanted:Qty: 1 on 02/03/2014 at OR [facility] Right: Breast CR BARD : DAVOL 11/22/2018 4212938M / [id number] / [id number] Breast Implant 354-2514 Saline - [id number] Implanted:Qty: 1 on 02/03/2014 at OR [facility] Right: Breast MENTOR GOPI 01/20/2017 354-2514 / [id number] 4 / [id number] Implant Brst Krys Hp 350-6504bc - [id number] Implanted:Qty: 1 on 08/08/2014 at OR [facility] Left: Breast MENTOR GOPI 02/20/2017 350-6504BC / [id number] 9 / [id number] Implant Brst Krys Hp 350-6504bc - [id number] Implanted:Qty: 1 on 08/08/2014 at OR [facility] Right: Breast MENTOR GOPI 10/22/2016 350-6504BC / [id number] 3 / [id number] Cement Antibiotic Bone - [id number] Implanted:Qty: 4 on 09/07/2018 by Lauro Pabon MD at OR [facility] Left: Knee TYESHA : ORTHOPAEDICS 04/22/2019 6197-9-010 / / [id number] Restrictors Med Cmnt S651-8124 - [id number] Implanted:Qty: 1 on 09/07/2018 by Lauro Pabon MD at OR [facility] Left: Knee TYESHA : INSTRUMENTS 11/06/2022 T630-7052 / / [id number] Restrictors Med Cmnt Q776-6302 - [id number] Implanted:Qty: 1 on 09/07/2018 by Lauro Pabon MD at OR [facility] Left: Knee TYESHA : INSTRUMENTS 02/11/2023 J085-6208 / / [id number] Knee Baseplate Tri Tib Sz 2 - [id number] Implanted:Qty: 1 on 09/07/2018 by Lauro Pabon MD at OR [facility] Left: Knee TYESHA : ORTHOPAEDICS 10/21/2022 5521-B-200 / / [id number] Tri Cemented Stem 12x50 - [id number] Implanted:Qty: 1 on 09/07/2018 by Lauro Pabon MD at OR [facility] Left: Knee TYESHA : ORTHOPAEDICS 06/22/2023 5560-S-112 / / [id number] Triathlon Tritanium Tibial Symmetric Cone Augment Size A Implanted:Qty: 1 on 09/07/2018 by Lauro Pabon MD at OR [facility] Left: Knee TYESHA : ORTHOPAEDICS 07/21/2022 5549-A-110 / / [id number] Knee Triathlon Stab Sz3 L - [id number] Implanted:Qty: 1 on 09/07/2018 by Lauro Pabon MD at OR [facility] Left: Knee TYESHA : ORTHOPAEDICS 02/02/2023 5512-F-301 / / [id number] Triathlon Stem Vulcanizing Press Operator 25 - [id number] Implanted:Qty: 1 on 09/07/2018 by Lauro Pabon MD at OR [facility] Left: Knee TYESHA : ORTHOPAEDICS 01/28/2023 5571-S-025 / / [id number] Tri Cemented Stem 12x50 - [id number] Implanted:Qty: 1 on 09/07/2018 by Lauro Pabon MD at OR [facility] Left: Knee TYESHA : ORTHOPAEDICS 06/18/2023 5560-S-112 / / [id number] Knee Femoral Dist Aug 10 3 L - [id number] Implanted:Qty: 2 on 09/07/2018 by Lauro Pabon MD at OR [facility] Left: Knee TYESHA : ORTHOPAEDICS 07/10/2021 5541-A-301 / / [id number] Knee Tri Post Augment Sz3 10 - [id number] Implanted:Qty: 1 on 09/07/2018 by Lauro Pabon MD at OR [facility] Left: Knee TYESHA : ORTHOPAEDICS 01/29/2023 5544-A-300 / / [id number] Knee Tri Post Augment Sz3 5 - [id number] Implanted:Qty: 1 on 09/07/2018 by Lauro Pabon MD at OR [facility] Left: Knee TYESHA : ORTHOPAEDICS 12/11/2022 5543-A-300 / / [id number] Knee Tib Insr Plus X3 - [id number] Implanted:Qty: 1 on 09/07/2018 by Lauro Pabon MD at OR [facility] Left: Knee TYESHA : ORTHOPAEDICS 05/22/2019 5537-G-222 / / [id number] documented as of this encounter Visit Diagnoses Diagnosis Atrial dilatation, left- Primary Cardiomegaly Lumbar radiculopathy Thoracic or lumbosacral neuritis or radiculitis, unspecified documented in this encounter Advance Directives Documents on File Type Date Recorded Patient Business Information Analyst Expl anation Advance Directives and Living Will [...] the patient have Health Care Power of Shipyard Supervisor? No Code Status History Code Status Date [...] Directives occurred with: Not Discussed Care Teams Two Needle Machine Operator Relationship Specialty Start Date End Date Quentin Silveira MD [address] [facility] [place] [id number] PCP - General 01/03/02 documented as of this encounter
--- OUTSIDE RECORDS SUMMARY | 2024-02-25 13:00 | External Medical Summary | Summary of Care ---
Author Name Unknown Organization [facility] Address [address] [place] [address] Phone [phone] Care Team Providers Care Irrigation District Manager Name Role Phone Quentin Silveira MD Primary Care Provider Reason for Visit * Reason Onset Date Comments Films 02/10/2024 Encounter Details Date Type Department Care Team (Late st Contact Info) Description 02/10/2024 Telephone Radiology Film File [address] [place], [place] [id number] Estee Redd PA-C [address] [facility] [place] [address] Films Allergies Active Allergy Reactions Criticality Noted [...] Obesity protocol #1 Genetic Sleep Disorder Resea [facility] Other*[id number] 05/28/2012 07/01/2016 Severe obesity with body mas [...] Disc created - patient in office at [facility] Patient/phone representative signed patient right of access form and received disc in office. documented in this encounter Plan of Treatment Upcoming Encounters Date Type Department Care Team (Latest Contact Info) Description 02/17/2024 9:00 AM EDT Telemedicine Interventional [facility] Center, [address] [place] [id number] Estee Redd PA-C [address] [place] [address] 02/29/2024 1:30 PM EDT Imaging Radiology, [facility] [address] [facility] [place] [address] 03/14/2024 2:30 PM EDT Cardiac Studies Cardiac Studies, [facility] [address] [place] [address] 03/28/2024 10:30 AM EDT Hospital Encounter [facility], Operating Room [facility] [address] [place] [phone] Vasile Oejda, [address] [place] [phone] 03/28/2024 10:30 AM EDT - 03/28/2024 10:55 AM EDT Surgery [facility], Operating Room [facility] [address] [place] [phone] Vasile Ojeda, [address] [place] [phone] INJECTION SPINE LUMBAR OR SACRAL 06/09/2024 1:00 PM EDT Office Visit Neurology [facility] [address] [facility] [place] [address] Johanna Cavazos MD [address] [facility] [place] [address] 12/08/2024 11:00 AM EST [facility] [address] [facility] [address] Quentin Silveira MD [address] [facility] [place] [id number] Scheduled Procedures Name Priority Associated Diagnoses Date/Ti [...] this encounter Medical Devices Implanted Type Area Sports Administrator Device Identifier Shelf Expiration Date Model / Serial / Lot Cement Bone R 1112-140-01 - [id number] Implanted:Qty: 1 on 01/09/2010 at [place] [facility] [place] Left: Knee [employer]LET [employer] 04/23/2014 00-1112-14 0-01 / / [id number] Femur Nexgn D Left - [id number] Implanted:Qty: 1 on 01/09/2010 at OR [facility] [place] Left: Knee [employer]LET [employer] 10/23/2019-5996-01 4-51 / / [id number] Patella Poly Nexgen - [id number] Implanted:Qty: 1 on 01/09/2010 at OR [facility] [place] Left: Knee [employer] 11/23/2017-5972-06 5-32 / / [id number] Plate Tibial Flu - [id number] Implanted:Qty: 1 on 01/09/2010 at OR [facility] [place] Left: Knee [employer] 11/23/2019-5996-03 8-01 / / [id number] Surface Flex Cd 10 - [id number] Implanted:Qty: 1 on 01/09/2010 at OR [facility] [place] Left: Knee [employer] 10/23/2017-5964-03 0-10 / / [id number] Femur Option Lps Er - [id number] Implanted:Qty: 1 on 08/17/2012 at OR [facility] [place] Right: Knee [employer]LET [employer] 06/22/2022-5764-01 5-52 / / [id number] Block Ochiltree Syls3 10 - [id number] Implanted:Qty: 1 on 08/17/2012 at OR [facility] [place] Right: Knee [employer]LET INC 02/20/2017-5886-06 3-10 / / [id number] Cement Antibiotic Bone - [id number] Implanted:Qty: 1 on 08/17/2012 at OR [facility] [place] Right: Knee TYESHA : ORTHOPAEDICS 03/22/2014 6197-9-010 / / [id number] Breast Implant 354-2514 [place] - [id number] Implanted:Qty: 1 on 02/03/2014 at OR [facility] [place] Left: Breast MENTOR GOPI 12/23/2016 354-2514 / [id number] Graft Allomax 1.0 6x16 - [id number] Implanted:Qty: 1 on 02/03/2014 at OR [facility] [place] Left: Breast CR BARD : DAVOL 11/22/2018 [id number] / [id number] / [id number] Graft Allomax 1.0 6x16 - [id number] Implanted:Qty: 1 on 02/03/2014 at OR [facility] [place] Right: Breast CR BARD : DAVOL 11/22/2018 [id number] / [id number] / [id number] Breast Implant 354-2514 Saline - [id number] Implanted:Qty: 1 on 02/03/2014 at OR [facility] [place] Right: Breast MENTOR GOPI 01/20/2017 354-2514 / [id number] / [id number] Implant Brst Krys Hp 350-6504bc - [id number] Implanted:Qty: 1 on 08/08/2014 at OR [facility] [place] Left: Breast MENTOR GOPI 02/20/2017 350-6504BC / [id number] / [id number] Implant Brst Krys Hp 350-6504bc - [id number] Implanted:Qty: 1 on 08/08/2014 at OR [facility] [place] Right: Breast MENTOR GOPI 10/22/2016 350-6504BC / [id number] 3 / [id number] Cement Antibiotic Bone - [id number] Implanted:Qty: 4 on 09/07/2018 by Lauro Pabon MD at OR [facility] [place] Left: Knee TYESHA : ORTHOPAEDICS 04/22/2019 6197-9-010 / / [id number] Restrictors Med Cmnt N130-9505 - [id number] Implanted:Qty: 1 on 09/07/2018 by Lauro Pabon MD at OR [facility] [place] Left: Knee TYESHA : INSTRUMENTS 11/06/2022 V191-4012 / / [id number] Restrictors Med Cmnt E988-1729 - [id number] Implanted:Qty: 1 on 09/07/2018 by Lauro Pabon MD at OR [facility] [place] Left: Knee TYESHA : INSTRUMENTS 02/11/2023 S006-7002 / / [id number] Knee Baseplate Tri Tib Sz 2 - [id number] Implanted:Qty: 1 on 09/07/2018 by Lauro Pabon MD at OR [facility] [place] Left: Knee TYESHA : ORTHOPAEDICS 10/21/2022 5521-B-200 / / [id number] Tri Cemented Stem 12x50 - [id number] Implanted:Qty: 1 on 09/07/2018 by Lauro Pabon MD at OR [facility] [place] Left: Knee TYESHA : ORTHOPAEDICS 06/22/2023 5560-S-112 / / [id number] Triathlon Tritanium Tibial Symmetric Cone Augment Size A Implanted:Qty: 1 on 09/07/2018 by Lauro Pabon MD at OR [facility] [place] Left: Knee TYESHA : ORTHOPAEDICS 07/21/2022 5549-A-110 / / [id number] Knee Triathlon Stab Sz3 L - [id number] Implanted:Qty: 1 on 09/07/2018 by Lauro Pabon MD at OR [facility] [place] Left: Knee TYESHA : ORTHOPAEDICS 02/02/2023 5512-F-301 / / [id number] Triathlon Stem Drier And Pulverizer Tender 25 - [id number] Implanted:Qty: 1 on 09/07/2018 by Lauro Pabon MD at OR [facility] [place] Left: Knee TYESHA : ORTHOPAEDICS 01/28/2023 5571-S-025 / / [id number] Tri Cemented Stem 12x50 - [id number] Implanted:Qty: 1 on 09/07/2018 by Lauro Pabon MD at OR [facility] [place] Left: Knee TYESHA : ORTHOPAEDICS 06/18/2023 5560-S-112 / / [id number] Knee Femoral Dist Aug 10 3 L - [id number] Implanted:Qty: 2 on 09/07/2018 by Lauro Pabon MD at OR [facility] [place] Left: Knee TYESHA : ORTHOPAEDICS 07/10/2021 5541-A-301 / / [id number] Knee Tri Post Augment Sz3 10 - [id number] Implanted:Qty: 1 on 09/07/2018 by Luaro Pabon MD at OR [facility] [place] Left: Knee TYESHA : ORTHOPAEDICS 01/29/2023 5544-A-300 / / [id number] Knee Tri Post Augment Sz3 5 - [id number] Implanted:Qty: 1 on 09/07/2018 by Lauro Pabon MD at OR [facility] [place] Left: Knee TYESHA : ORTHOPAEDICS 12/11/2022 5543-A-300 / / [id number] Knee Tib Insr Plus X3 22 - [id number] Implanted:Qty: 1 on 09/07/2018 by Lauro Pabon MD at OR [facility] [place] Left: Knee TYESHA : ORTHOPAEDICS 05/22/2019 5537-G-222 / / [id number] documented as of this encounter Advance Directives Documents on File Type Date Recorded Patient Manager Imaging Expl anation Advance Directives and Living Will [...] the patient have Health Care Power of Strip Tank Tender? No Code Status History Code Status Date [...] Directives occurred with: Not Discussed Care Teams Irrigation District Manager Relationship Specialty Start Date End Date Quentin Silveira MD [address] [place] [address] PCP - General 01/03/02 documented as of this encounter
--- OUTSIDE RECORDS SUMMARY | 2024-02-25 13:00 | External Medical Summary | Summary of Care ---
Author Name Unknown Organization [facility] Address [address] [place] [address] Phone [phone] Care Team Providers Care Deputy Sheriff/Investigator Name Role Phone Quentin Silveira MD Primary Care Provider [phone] Reason for Referral * Evaluate & Treat - Unlimited Visits (Within 30 days (routine)) - Authorized Specialty Diagnoses / Procedures Referred By Contact Referred To Contact Cardiovascular Medicine / Cardiology Diagnoses Atrial dilatation, left Quentin Silveira MD [address] [place] [address] Referral ID Status Reason Start Date Expiration Date Visits Requested Visits Authorized [id number] Authorized Specialty Services Required 01/30/2024 999 999 [...] (Late st Contact Info) Description 01/30/2024 Telephone [facility] [address] [place] [facility] [place] [address] Quentin Silveira MD [address] [place] [address] Test Results Allergies Active Allergy [...] Take by mouth daily. Natural laxatives from [employer] 0 Active Ascorbic Acid 125 MG Oral [...] Obesity protocol #1 Genetic Sleep Disorder Resea [facility] Other*[id number] 05/28/2012 07/01/2016 Severe obesity with body mas [...] mRNA, LNP-s, No Pre serve, 2-Dose Series ([employer]) 10/28/2021,03/06/2021,02/13/2021 H1N1 2009 Influenza, IM 11/29/2009 PPD [...] encounter Miscellaneous Notes * Telephone Encounter - Milagro Pardo LPN [...] 02/03/2024 9:30 AM EDT Office Visit Cardiology, [facility] [address] [facility] [place] [address] Jhonny Tobar, [address] [place] [address] 02/10/2024 2:00 PM EDT Imaging Radiology [facility] [address] [facility] [address] [place] [address] 02/25/2024 9:30 AM EDT Telemedicine Interventional Pain Center, [facility] [address] [facility] [place] [address] Estee Redd PA-C [address] [place] [address] 02/29/2024 1:30 PM EDT Imaging Radiology, [address] [place] [address] 03/28/2024 10:30 AM EDT Hospital Encounter [facility], Operating Room [facility] [address] [place] [phone] Vasile Ojeda, DO [address] [place] [phone] 03/28/2024 10:30 AM EDT - 03/28/2024 10:55 AM EDT Surgery OR [facility], Operating Room [facility] [address] [place] [phone] Vasile Ojeda, DO [address] [place] [phone] INJECTION SPINE LUMBAR OR SACRAL 06/09/2024 1:00 PM EDT Office Visit Neurology [facility] [address] [place] [address] Johanna Cavazos MD [address] [place] [address] 12/08/2024 11:00 AM EST Office Visit [facility] [address] [place] [phone] Quentin Silveira MD [address], [place] [phone] Scheduled Procedures Name Priority Associated Diagnoses Date/Ti [...] this encounter Medical Devices Implanted Type Area Advance Seal Delivery System Maintainer Device Identifier Shelf Expiration Date Model / Serial / Lot Cement Bone R 1112-140-01 - [id number] Implanted:Qty: 1 on 01/09/2010 [place] [facility] Left: Knee V[employer]LET INC 04/23/2014 00-1112-14 0- [id number] Femur Nexgn D Left - [id number] Implanted:Qty: 1 on 01/09/2010 at [place] [facility] Left: Knee [employer] INC 10/23/20195996-01 4-51 / / [id number] Patella Poly Nexgen - [id number] Implanted:Qty: 1 on 01/09/2010 at [place] [facility] Left: Knee [employer] INC 11/23/2017-5972-06 5-32 / / [id number] Plate Tibial Flu - [id number] Implanted:Qty: 1 on 01/09/2010 at [place] [facility] Left: Knee [employer] 11/23/2019-5996-03 8-01 / / [id number] Surface Flex Cd 10 - [id number] Implanted:Qty: 1 on 01/09/2010 at [place] [facility] Left: Knee [employer] INC 10/23/2017-5964-03 0-10 / / [id number] Femur Option Lps Er - [id number] Implanted:Qty: 1 on 08/17/2012 at [place] [facility] [place] Right: Knee [employer]LET INC 06/22/2022-5764-01 5-52 / / [id number] Block Dale Syls3 10 - [id number] Implanted:Qty: 1 on 08/17/2012 at [place] [facility] Right: Knee [employer]LET INC 02/20/2017-5886-06 3-10 / / [id number] Cement Antibiotic Bone - [id number] Implanted:Qty: 1 on 08/17/2012 at [place] [facility] [place] Right: Knee TYESHA : ORTHOPAEDICS 03/22/2014 6197-9-010 / / [id number] Breast Implant 354-2514 [place] - [id number] Implanted:Qty: 1 on 02/03/2014 at [place] [facility] Left: Breast MENTOR GOPI 12/23/2016 354-2514 / [id number] Graft Allomax 1.0 6x16 - [id number] Implanted:Qty: 1 on 02/03/2014 at [place] [facility] Left: Breast CR BARD : DAVOL 11/22/2018 [id number] / [id number] / [id number] Graft Allomax 1.0 6x16 - [id number] Implanted:Qty: 1 on 02/03/2014 at [place] [facility] Right: Breast CR BARD : DAVOL 11/22/2018 [id number] / [id number] / [id number] Breast Implant 354-0431 Saline - [id number] Implanted:Qty: 1 on 02/03/2014 at [place] [facility] [place] Right: Breast MENTOR GOPI 01/20/2017 354-2514 / [id number] / [id number] Implant Brst Krys Hp 350-6504bc - [id number] Implanted:Qty: 1 on 08/08/2014 at [place] [facility] [place] Left: Breast MENTOR GOPI 02/20/2017 350-6504BC / [id number] 9 / [id number] Implant Brst Krys Hp 350-6504bc - [id number] Implanted:Qty: 1 on 08/08/2014 at [place] [facility] [place] Right: Breast MENTOR GOPI 10/22/2016 350-6504BC / [id number] 3 / [id number] Cement Antibiotic Bone - [id number] Implanted:Qty: 4 on 09/07/2018 by Lauro Pabon MD at [place] [facility] [place] Left: Knee TYESHA : ORTHOPAEDICS 04/22/2019 6197-9-010 / / [id number] Restrictors Med Cmnt D790-0411 - [id number] Implanted:Qty: 1 on 09/07/2018 by Lauro Pabon MD at [place] [facility] [place] Left: Knee TYESHA : INSTRUMENTS 11/06/2022 O823-2210 / / [id number] Restrictors Med Cmnt K849-4674 - [id number] Implanted:Qty: 1 on 09/07/2018 by Lauro Pabon MD at [place] [facility] [place] Left: Knee TYESHA : INSTRUMENTS 02/11/2023 U260-2483 / / [id number] Knee Baseplate Tri Tib Sz 2 - [id number] Implanted:Qty: 1 on 09/07/2018 by Lauro Pabon MD at [place] [facility] [place] Left: Knee TYESHA : ORTHOPAEDICS 10/21/2022 5521-B-200 / / [id number] Tri Cemented Stem 12x50 - [id number] Implanted:Qty: 1 on 09/07/2018 by Lauro Pabon MD at [place] [facility] [place] Left: Knee TYESHA : ORTHOPAEDICS 06/22/2023 5560-S-112 / / [id number] Triathlon Tritanium Tibial Symmetric Cone Augment Size A Implanted:Qty: 1 on 09/07/2018 by Lauro Pabon MD at [place] [facility] [place] Left: Knee TYESHA : ORTHOPAEDICS 07/21/2022 5549-A-110 / / [id number] Knee Triathlon Stab Sz3 L - [id number] Implanted:Qty: 1 on 09/07/2018 by Lauro Pabon MD at [place] [facility] [place] Left: Knee TYESHA : ORTHOPAEDICS 02/02/2023 5512-F-301 / / [id number] Triathlon Stem Horse Doctor 25 - [id number] Implanted:Qty: 1 on 09/07/2018 by Lauro Pabon MD at [place] [facility] [place] Left: Knee TYESHA : ORTHOPAEDICS 01/28/2023 5571-S-025 / / [id number] Tri Cemented Stem 12x50 - [id number] Implanted:Qty: 1 on 09/07/2018 by Lauro Pabon MD at [place] [facility] [place] Left: Knee TYESHA : ORTHOPAEDICS 06/18/2023 5560-S-112 / / [id number] Knee Femoral Dist Aug 10 3 L - [id number] Implanted:Qty: 2 on 09/07/2018 by Lauro Pabon MD at [place] [facility] [place] Left: Knee TYESHA : ORTHOPAEDICS 07/10/2021 5541-A-301 / / [id number] Knee Tri Post Augment Sz3 10 - [id number] Implanted:Qty: 1 on 09/07/2018 by Lauro Pabon MD at [place] [facility] [place] Left: Knee TYESHA : ORTHOPAEDICS 01/29/2023 5544-A-300 / / [id number] Knee Tri Post Augment Sz3 5 - [id number] Implanted:Qty: 1 on 09/07/2018 by Lauro Pabon MD at [place] [facility] [place] Left: Knee TYESHA : ORTHOPAEDICS 12/11/2022 5543-A-300 / / [id number] Knee Tib Insr Plus X3 22 - [id number] Implanted:Qty: 1 on 09/07/2018 by Lauro Pabon MD at [place] [facility] [place] Left: Knee TYESHA : ORTHOPAEDICS 05/22/2019 5537-G-222 / / [id number] documented as of this encounter Visit Diagnoses Diagnosis Atrial dilatation, left- Primary Cardiomegaly Lumbar radiculopathy Thoracic or lumbosacral neuritis or radiculitis, unspecified documented in this encounter Advance Directives Documents on File Type Date Recorded Patient Agricultural Engineering Teacher Expl anation Advance Directives and Living Will [...] the patient have Health Care Power of Svp Digital Ad Sales? No Code Status History Code Status Date [...] Directives occurred with: Not Discussed Care Teams Deputy Sheriff/Investigator Relationship Specialty Start Date End Date Quentin Silveira MD [address] [facility] [place] [address] PCP - General 01/03/02 documented as of this encounter
--- OUTSIDE RECORDS SUMMARY | 2024-02-25 13:00 | External Medical Summary | Summary of Care ---
Author Name Unknown Organization [facility] Address [address] [place] [address] Phone [phone] Care Team Providers Care Head Housekeeper Name Role Phone Dnana Silveira MD Primary Care Provider [phone] Reason for Visit * Reason Onset Date Comments Medication Refill 02/10/2024 Encounter Details Date Type Department Care Team (Late st Contact Info) Description 02/10/2024 Refill [facility] [address] [place] [address] Addi Olivera MD [address] [place] [address] HTN, goal below 140/90 Allergies [...] day Take by mouth. 0 Acti ve Baclofen 10 MG Oral Tablet (Lioresal) Take [...] twice daily 90 Capsule 3 12/14/2023 Active methylPREDNISolon e 4 MG Oral Tablet Therapy Pack (Medrol Dosepack)Indicati ons:Lumbar radicular pain follow package directions 21 Tablet 0 01/22/2024 Active Additional Information Patient not taking.Reported on 02/03/2024 Lisinopril 10 MG Oral Tablet (Prinivil)Indicat ions:HTN, [...] the morning.. 90 Tablet 3 02/11/2024 Active Lisinopril 10 MG Oral Tablet (Prinivil)Indicat ions:HTN, goal below 140/90 TAKE ONE TABLET BY MOUTH IN THE MORNING 90 Tablet 0 10/26/2023 Discontinue d(Refill) Simvastatin 20 MG Oral Tablet (Zocor) TAKE 1 TABLET BY MOUTH AT BEDTIME 90 Tablet 0 11/25/2023 4 Discontinue d(Refill) hydroCHLOROthiazi de 25 MG Oral Tablet (Hydrodiuril)Janeth cations:HTN, goal below 140/90 TAKE ONE TABLET BY MOUTH IN THE MORNING 90 Tablet 0 11/25/2023 4 Discontinue d(Refill) documented as of this encounter (statuses as [...] Obesity protocol #1 Genetic Sleep Disorder Resea [facility] Other*[id number] 05/28/2012 07/01/2016 Severe obesity with body mas [...] mRNA, LNP-s, No Pre serve, 2-Dose Series (MeUndies) 10/28/2021,03/06/2021,02/13/2021 H1N1 2009 Influenza, IM 11/29/2009 PPD [...] Miscellaneous Notes * Telephone Encounter - Philomena Sequeira, [facility] - 02/11/2024 5:51 AM EDTSigned Prescriptions: Disp Refills Lisinopril 10 MG Oral Tablet (Prinivil) 90 Tab*3 Sig: Take 1 Tablet by mouth in the morning. In the morning..Authorizing Provider: DANNA SILVEIRA User: PHILOMENA SEQUEIRA Simvastatin 20 MG Oral Tablet (Zocor) 90 Tab*3 Sig: Take 1 Tablet by mouth at bedtim e.Authorizing Provider: DANNA SILVEIRA User: PHILOMENA SEQUEIRA hydroCHLOROthiazide 25 MG Oral Tablet (Hyd*90 Tab*3 Sig: Take 1 Tablet by mouth in the morning. In the morning..Authorizing Provider: DANNA SILVEIRA User: PHILOMENA SEQUEIRA documented in this encounter Plan of Treatment Upcoming Encounters Date Type Department Care Team (Latest Contact Info) Description 02/17/2024 9:00 AM EDT Telemedicine Interventional Pain Center, [facility] [address] [address] Estee Redd PA-C [address] [place] [address] 02/29/2024 1:30 PM EDT [facility] [place] [id number] [facility] [address] 03/14/2024 2:30 PM EDT Cardiac Studies Cardiac Studies, [facility] [address] [address] 03/28/2024 10:30 AM EDT Hospital Encounter [facility] [address] [phone] Vasile Ojeda DO [address] [phone] 03/28/2024 10:30 AM EDT - 03/28/2024 10:55 AM EDT Surgery [facility] [address] [place] [phone] Vasile Ojeda, [address] [place] [phone] INJECTION SPINE LUMBAR OR SACRAL 06/09/2024 1:00 PM EDT Office Visit Neurology [facility] [address] [facility] [place] [address] [facility] [address] [facility] [address] 12/08/2024 11:00 AM EST Office Visit [facility] [address] [place] [phone] Danna Silveira MD [address] [place] [address] Scheduled Procedures Name Priority Associated Diagnoses Date/Ti [...] this encounter Medical Devices Implanted Type Area Federal Appellate Law Clerk Device Identifier Shelf Expiration Date Model / Serial / Lot Cement Bone R 1112-140-01 - [id number] Implanted:Qty: 1 on 01/09/2010 at [place] Left: Knee [employer] 04/23/2014 00-1112-14 0- / [id number] Femur Nexgn D Left - [id number] Implanted:Qty: 1 on 01/09/2010 at [place] Left: Knee [employer] 10/23/2019-5996-01 4-51 / / [id number] Patella Poly Nexgen - [id number] Implanted:Qty: 1 on 01/09/2010 at [place] Left: Knee [employer] 11/23/2017-5972-06 5-32 / / [id number] Plate Tibial Flu - [id number] Implanted:Qty: 1 on 01/09/2010 at [place] Left: Knee [employer] 11/23/2019-5996-03 8- / [id number] Surface Flex Cd 10 - [id number] Implanted:Qty: 1 on 01/09/2010 at [place] Left: Knee [employer]T INC 10/23/2017-5964-03 0- / / [id number] Femur Option Lps Er - [id number] Implanted:Qty: 1 on 08/17/2012 at [place] Right: Knee [employer] 06/22/2022-5764-01 5-52 / / [id number] Block [address] Syls3 10 - [id number] Implanted:Qty: 1 on 08/17/2012 at [place] Right: Knee [employer] 02/20/2017-5886-06 3- / / [id number] Cement Antibiotic Bone - [id number] Implanted:Qty: 1 on 08/17/2012 at [place] Right: Knee TYESHA : ORTHOPAEDICS 03/22/2014 6197-9-010 / / [id number] Breast Implant 354-2514 Saline - [id number] Implanted:Qty: 1 on 02/03/2014 at [place] Left: Breast MENTOR GOPI 12/23/2016 354-2514 / [id number] Graft Allomax 1.0 6x16 - [id number] Implanted:Qty: 1 on 02/03/2014 at [place] Left: Breast CR BARD : DAVOL 11/22/2018 [id number] / [id number] / [id number] Graft Allomax 1.0 6x16 - [id number] Implanted:Qty: 1 on 02/03/2014 at [place] Right: Breast CR BARD : DAVOL 11/22/2018 [id number] / [id number] / [id number] Breast Implant 354-4474 Saline - [id number] Implanted:Qty: 1 on 02/03/2014 at [place] Right: Breast MENTOR GOPI 01/20/2017 354-2514 / [id number] / [id number] Implant Brst Krys Hp 350-6504bc - [id number] Implanted:Qty: 1 on 08/08/2014 at [place] Left: Breast MENTOR GOPI 02/20/2017 350-6504BC / [id number] 9 / [id number] Implant Brst Krys 350-6504bc - [id number] Implanted:Qty: 1 on 08/08/2014 at [place] Right: Breast MENTOR GOPI 10/22/2016 350-6504BC / [id number] / [id number] Cement Antibiotic Bone - [id number] Implanted:Qty: 4 on 09/07/2018 by Lauro Pabon MD at [facility] [place] Left: Knee TYESHA : ORTHOPAEDICS 04/22/2019 6197-9-010 / / [id number] Restrictors Med Cmnt K578-1068 - [id number] Implanted:Qty: 1 on 09/07/2018 by Lauro Pabon MD at [facility] [place] Left: Knee TYESHA : INSTRUMENTS 11/06/2022 Y845-1469 / / [id number] Restrictors Med Cmnt E597-5019 - [id number] Implanted:Qty: 1 on 09/07/2018 by Lauro Pabon MD at [facility] [place] Left: Knee TYESHA : INSTRUMENTS 02/11/2023 P148-5147 / / [id number] Knee Baseplate Tri Tib Sz 2 - [id number] Implanted:Qty: 1 on 09/07/2018 by Lauro Pabon MD at [facility] [place] Left: Knee TYESHA : ORTHOPAEDICS 10/21/2022 5521-B-200 / / [id number] Tri Cemented Stem 12x50 - [id number] Implanted:Qty: 1 on 09/07/2018 by Lauro Pabon MD at [facility] [place] Left: Knee TYESHA : ORTHOPAEDICS 06/22/2023 5560-S-112 / / [id number] Triathlon Tritanium Tibial Symmetric Cone Augment Size A Implanted:Qty: 1 on 09/07/2018 by Lauro Pabon MD at [facility] [place] Left: Knee TYESHA : ORTHOPAEDICS 07/21/2022 5549-A-110 / / [id number] Knee Triathlon Stab Sz3 L - [id number] Implanted:Qty: 1 on 09/07/2018 by Lauro Pabon MD at [facility] [place] Left: Knee TYESHA : ORTHOPAEDICS 02/02/2023 5512-F-301 / / [id number] Triathlon Stem Unix Administrator 25 - [id number] Implanted:Qty: 1 on 09/07/2018 by Lauro Pabon MD at [facility] [place] Left: Knee TYESHA : ORTHOPAEDICS 01/28/2023 5571-S-025 / / [id number] Tri Cemented Stem 12x50 - [id number] Implanted:Qty: 1 on 09/07/2018 by Lauro Pabon MD at [facility] [place] Left: Knee TYESHA : ORTHOPAEDICS 06/18/2023 5560-S-112 / / [id number] Knee Femoral Dist Aug 10 3 L - [id number] Implanted:Qty: 2 on 09/07/2018 by Lauro Pabon MD at [facility] [place] Left: Knee TYESHA : ORTHOPAEDICS 07/10/2021 5541-A-301 / / [id number] [id number] Tri Post Augment Sz3 10 - [id number] Implanted:Qty: 1 on 09/07/2018 by Lauro Pabon MD at [facility] [place] Left: Knee TYESHA : ORTHOPAEDICS 01/29/2023 5544-A-300 / / [id number] Knee Tri Post Augment Sz3 5 - [id number] Implanted:Qty: 1 on 09/07/2018 by Lauro Pabon MD at [facility] [place] Left: Knee TYESHA : ORTHOPAEDICS 12/11/2022 5543-A-300 / / [id number] Knee Tib Insr Plus X3 22 - [id number] Implanted:Qty: 1 on 09/07/2018 by Lauro Pabon MD at [facility] [place] Left: Knee TYESHA : ORTHOPAEDICS 05/22/2019 5537-G-222 / / [id number] documented as of this encounter Visit Diagnoses Diagnosis HTN, goal below 140/90 Unspecified essential hypertension Lumbar radiculopathy Thoracic or lumbosacral neuritis or radiculitis, unspecified documented in this encounter Advance Directives Documents on File Type Date Recorded Patient Drying Frame Operator Expl anation Advance Directives and Living Will [...] the patient have Health Care Power of Jewelry Cutter? No Code Status History Code Status Date [...] Directives occurred with: Not Discussed Care Teams Head Housekeeper Relationship Specialty Start Date End Date Danna Silveira MD [address] [facility] [place] [address] PCP - General 01/03/02 documented as of this encounter
--- OUTSIDE RECORDS SUMMARY | 2024-02-25 13:01 | External Medical Summary | Summary of Care ---
Author Name Unknown Organization [facility] Address [address] [place] [place] [address] Phone [phone] Care Team Providers Care Machine Captain Name Role Phone Quentin Silveira MD Primary Care Provider Reason for Visit * Reason Onset Date Comments Follow Up 02/01/2024 Encounter Details Date Type Department Care Team (Late st Contact Info) Description 02/01/2024 Telephone Interventional Pain Center, [facility] [address] [place] [address] Estee Redd PA-C [address] [facility] [place] [address] Follow Up Allergies Active Allergy Reactions Criticality Noted Date [...] Obesity protocol #1 Genetic Sleep Disorder Resea [facility] Other*[id number] 05/28/2012 07/01/2016 Severe obesity with body mas [...] encounter Miscellaneous Notes * Telephone Encounter - Eunice Ferguson [facility] - 02/01/2024 11:56 AM EDT Patient stopped by she is having increased pain due to a bad fall. She landed on her back and hit the back of her head. documented in this encounter Plan of Treatment Upcoming Encounters Date Type Department Care Team (Latest Contact Info) Description 02/03/2024 9:30 AM EDT Office Visit Cardiology, [facility] [address] [place] [address] Jhonny Tobar, [address] [address] 02/10/2024 2:00 PM EDT Imaging Radiology [facility] [facility] [address] [place] [address] 02/25/2024 9:30 AM EDT Telemedicine Interventional Pain Center, [facility] [address] [place] [address] Estee Redd PA-C [address] [place] [address] 02/29/2024 1:30 PM EDT Imaging Radiology, [address] [place] [address] 03/28/2024 10:30 AM EDT Hospital Encounter [facility], Operating Room [facility] [address] [place] [phone] Vasile Ojeda DO [address] [place] [address] 03/28/2024 10:30 AM EDT - 03/28/2024 10:55 AM EDT Surgery [facility], Operating Room [facility] [address] [place] [phone] Vasile Ojeda, [address] [place] [phone] INJECTION SPINE LUMBAR OR SACRAL 06/09/2024 1:00 PM EDT Office Visit Neurology [facility] [address] [facility] [place] [address] Johanna Cavazos MD [address] [facility] [place] [address] 12/08/2024 11:00 AM EST Office Visit [facility] [address] [facility] [phone] Quentin Silveira MD [address] [place] [facility] [place] [address] Scheduled Procedures Name Priority Associated Diagnoses Date/Ti [...] this encounter Medical Devices Implanted Type Area Shipping Hand Device Identifier Shelf Expiration Date Model / Serial / Lot Cement Bone R 1112-140-01 - [id number] [place]planted:[place] 1 [place]/09/2010 [place] [facility] [place]: Knee [employer]LET INC 04/23/2014-1112-14 0-01 / / [id number] Femur Nexgn D Left - [id number] Implanted:Qty: 1 on 01/09/2010 [place] [facility] [place]: Knee [employer]LET INC 10/23/20195996-01 4-51 / / [id number] Patella Poly Nexgen - [id number] Implanted:Qty: 1 on 01/09/2010 [place] [facility] [place]: Knee [employer]LET INC 11/23/2017-5972-06 5-32 / / [id number] Plate Tibial Flu - [id number] Implanted:Qty: 1 on 01/09/2010 [place] [facility] [place]: Knee [employer]LET INC 11/23/20195996-03 8- / / [id number] Surface Flex Cd 10 - [id number] Implanted:Qty: 1 on 01/09/2010 [place] [facility] [place]: Knee [employer]LET INC 10/23/20175964-03 0-10 / / [id number] Femur Option Lps Er - [id number] Implanted:Qty: 1 on 08/17/2012 [place] [facility] [place]: Knee VIOLET INC 06/22/20225764-01 5-52 / / [id number] Block [place] Syls3 10 - [id number] Implanted:Qty: 1 on 08/17/2012 [place] [facility] [place]: Knee VIOLET INC 02/20/20175886-06 3-10 / / [id number] Cement Antibiotic Bone - [id number] Implanted:Qty: 1 on 08/17/2012 [place] [facility] [place]: Knee TYESHA : ORTHOPAEDICS 03/22/2014 6197-9-010 / / [id number] Breast Implant 354-2514 [place] - [id number] Implanted:Qty: 1 on 02/03/2014 [place] [facility] [place]: Breast MENTOR GOPI 12/23/2016 354-2514 / [id number] Graft Allomax 1.0 6x16 - [id number] Implanted:Qty: 1 on 02/03/2014 [place] [facility] [place]: Breast CR BARD : DAVOL 11/22/2018 [id number] / [id number] / [id number] Graft Allomax 1.0 6x16 - [id number] Implanted:Qty: 1 on 02/03/2014 [place] [facility] [place]: Breast CR BARD : DAVOL 11/22/2018 3973854Q / [id number] / [id number] Breast Implant 354-2514 Saline - [id number] Implanted:Qty: 1 on 02/03/2014 [place] [facility] [place]: Breast MENTOR GOPI 01/20/2017 354-2514 / [id number] 4 / [id number] Implant Brst Krys Hp 350-6504bc - [id number] Implanted:Qty: 1 on 08/08/2014 [place] [facility] [place]: Breast MENTOR GOPI 02/20/2017 350-6504BC / [id number] 9 / [id number] Implant Brst Krys Hp 350-6504bc - [id number] Implanted:Qty: 1 on 08/08/2014 [place] [facility] [place]: Breast MENTOR GOPI 10/22/2016 350-6504BC / [id number] 3 / [id number] Cement Antibiotic Bone - [id number] Implanted:Qty: 4 on 09/07/2018 by Lauro Pabon MD [place] [facility] [place]: Knee TYESHA : ORTHOPAEDICS 04/22/2019 6197-9-010 / / [id number] Restrictors Med Cmnt S031-9377 - [id number] Implanted:Qty: 1 on 09/07/2018 by Lauro Pabon MD [place] [facility] [place]: Knee TYESHA : INSTRUMENTS 11/06/2022 B297-9292 / / [id number] Restrictors Med Cmnt N274-7581 - [id number] Implanted:Qty: 1 on 09/07/2018 by Lauro Pabon MD [place] [facility] [place]: Knee TYESHA : INSTRUMENTS 02/11/2023 W617-5689 / / [id number] Knee Baseplate Tri Tib Sz 2 - [id number] Implanted:Qty: 1 on 09/07/2018 by Lauro Pabon MD [place] [facility] [place]: Knee TYESHA : ORTHOPAEDICS 10/21/2022 5521-B-200 / / [id number] Tri Cemented Stem 12x50 - [id number] Implanted:Qty: 1 on 09/07/2018 by Lauro Pabon MD [place] [facility] [place]: Knee TYESHA : ORTHOPAEDICS 06/22/2023 5560-S-112 / / [id number] Triathlon Tritanium Tibial Symmetric Cone Augment Size A Implanted:Qty: 1 on 09/07/2018 by Lauro Pabon MD [place] [facility] [place]: Knee TYESHA : ORTHOPAEDICS 07/21/2022 5549-A-110 / / [id number] Knee Triathlon Stab Sz3 L - [id number] Implanted:Qty: 1 on 09/07/2018 by Lauro Pabon MD [place] [facility] [place]: Knee TYESHA : ORTHOPAEDICS 02/02/2023 5512-F-301 / / [id number] Triathlon Stem Knowledge Manager 25 - [id number] Implanted:Qty: 1 on 09/07/2018 by Lauro Pabon MD [place] [facility] [place]: Knee TYESHA : ORTHOPAEDICS 01/28/2023 5571-S-025 / / [id number] Tri Cemented Stem 12x50 - [id number] Implanted:Qty: 1 on 09/07/2018 by Lauro Pabon MD [place] [facility] [place]: Knee TYESHA : ORTHOPAEDICS 06/18/2023 5560-S-112 / / [id number] Knee Femoral Dist Aug 10 3 L - [id number] Implanted:Qty: 2 on 09/07/2018 by Lauro Pabon MD [place] [facility] [place]: Knee TYESHA : ORTHOPAEDICS 07/10/2021 5541-A-301 / / [id number] Knee Tri Post Augment Sz3 10 - [id number] Implanted:Qty: 1 on 09/07/2018 by Lauro Pabon MD [place] [facility] [place]: Knee TYESHA : ORTHOPAEDICS 01/29/2023 5544-A-300 / / [id number] Knee Tri Post Augment Sz3 5 - [id number] Implanted:Qty: 1 on 09/07/2018 by Lauro Pabon MD [place] [facility] [place] Knee TYESHA : ORTHOPAEDICS 12/11/2022 5543-A-300 / / [id number] Knee Tib Insr Plus X3 22 - [id number] Implanted:Qty: 1 on 09/07/2018 by Lauro Pabon MD [place] [facility] [place]: Knee TYESHA : ORTHOPAEDICS 05/22/2019 5537-G-222 / / [id number] documented as of this encounter Advance Directives Documents on File Type Date Recorded Patient Cheese Cooker Expl 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 No Code Status History Code Status Date [...] Directives occurred with: Not Discussed Care Teams Machine Captain Relationship Specialty Start Date End Date Quentin Silveira MD [address] [place] [address] PCP - General 01/03/02 documented as of this encounter
--- OUTSIDE RECORDS SUMMARY | 2024-02-25 13:01 | External Medical Summary | Summary of Care ---
Author Name Unknown Organization [facility] Address [address] [place] [address] Phone [phone] Care Team Providers Care Firearms Model Maker Name Role Phone Quentin Silveira MD Primary Care Provider [phone] Reason for Referral * Precert (Within 10 days (routine)) - Authorized Specialty Diagnoses / Procedures Referred By Contac t Referred To Contact Radiology Diagnoses Lumbar radicular pain Spinal stenosis of lumbar region with neurogenic claudication Procedures MRI L SPINE WO CONTRAST Estee Redd PA-C [address] [place] [facility] [address] Referral ID Status Reason Start Date Expiration Date V isits Requested Visits Authorized [id number] Authorized 01/29/2024 999 999 Reason for Visit * Reason Comments Lumbar Pain W/radiation Lower Extremity Weakness * Evaluate & Treat - Unlimited Visits (Within 30 days (routine)) - Authorized Specialty Diagnoses / Procedures Referred By Contac t Referred To Contact Pain Management / Pain Medicine Diagnoses Spinal stenosis of lumbar region without neurogenic claudication Quentin Silveira MD [facility] [place] [address] Referral ID Status Reason Start Date Expiration Date Visits Requested Visits Authorized [id number] Authorized Specialty Services Required 01/19/2024 999 999 Encounter Details Date Type Department Care Team (Late st Contact Info) Description 01/22/2024 2:30 PM EST Office Visit [facility], [facility] [address] [place] [address] Estee Redd PA-C [address] [place] [address] Lumbar radicular pain*; Spinal stenosis of lumbar region with neurogenic claudication Allergies Active Allergy Reactions Criticality Noted Date Comments Cephalexin Monohydrate Other (Please comment) High 07/22/1999 respiratory distress. Cephalosporins 12/28/2009 documented as of this encounter (statuses as of 01/22/2024) Medications Medication Sig Dispensed Refills Start Date [...] as of this encounter (statuses as of 01/22/2024) Active Problems Problem Noted Date Diagnosed Date [...] as of this encounter (statuses as of 01/22/2024) Resolved Problems Problem Noted Date Diagnosed Date Resolved Date Morbid obesity with body mas s index (BMI) of 40.0 to 44.9 in adult 11/25/2019 11/30/2020 Gouty arthropathy 12/08/2017 05/30/2020 Body mass index (BMI) of 40. 0 to 44.9 in adult 08/24/2017 12/08/2019 Overview: Per Obesity protocol #1 Genetic Sleep Disorder Res[facility] Other*[id number] 05/28/2012 07/01/2016 Severe obesity with body mas [...] as of this encounter (statuses as of 01/22/2024) Immunizations Name Administration Dates Next Due COVID-19 mRNA, LNP-s, No Pre serve, 2-Dose Series ([employer]) 10/28/2021,03/06/2021,02/13/2021 H1N1 2009 Influenza, IM 11/29/2009 PPD [...] Influenza, Split, I IV3, With Preserve, Inj 08/09/2015,07/25/2014,09/23/2013,07/25,10/09/2011,09/27/2010,11/29/19,09/14/2008,10/06/2007,09/11/2006 07/25/2015 TDAP (age 10 and older)(Boostrix) 05/25/2019 [...] Progress Notes * Estee Redd PA-C - 01/22/2024 2:27 PM EST GENERAL HISTORY & PHYSICAL EXAMINATION - Anesthesia and Pain Service Name: Raysa Singh Location: [facility] REFERRING PHYSICIAN: Quentin Silveira MD Thank you for referring Raysa Singh. CHIEF COMPLAINT: Low back and LE HPI: Raysa Singh is a 73 year old female who complains of low back and buttock pain that radiates to B anterior thigh and villasenor. Low back and LE pain started more than 20 years ago without preceding injury. Notes progressive pain and new onset B LE weakness in the past three months. Unfortunately LE weakness has caused her to fall, now using cane to ambulate. Patient requested referral thru [facility] portal. Has not been evaluated by PCP for this complaint. No recent spine imaging. With further chart review, L spine xray 2017 - mild scoliotic curvature, grade 1 listhesis L4/5, DDD lower lumbar region L3 thru S1. Hx lumbar LOY, most recently 2011 in [place], which she did find benefit. Fo llows with chiropractor regularly, Dr Scott, no lasting improvement. Tried lumbar support brace without relief. Symptoms occur daily. Describes pain as burning, "no feeling sensation." LE feel rubber like. Pain is constant, rated 2/10 sitting, increases to 8/10 with activity. Aggravating factors include: walking, standing. Alleviating factors include: sitting, ice, topical lidocaine. No benefit with moist heat. Admits associated LE weakness. Using cane which is new for her in the past few weeks.Paresthesia lateral thigh and calf, R = L. Denies bowel or bladder incontinence. Denies hx spine surgery. She notes significant stress - caring for ailing mother who is bed bound, daughter is in the serve and will likely be deployed to [place], recently fell victim to an online scam. Pain is affectingADL. Significant past medical hx includes: HTN, DUC, breast CA, polyneuropathy, prediabetes. Current medications used for pain: gabapentin, Stop pain, tylenol. Past medications used for pain: baclofen. Anticoagulation therapy: no Diabetic: no PAST MEDICAL HISTORY: Past Medical History: Diagnosis Date HTN, goal below 140/90 10/14/2004 HX: breast cancer 11/30/2013 SPINAL STENOSIS-LUMBAR 07/31/2009 Past Medical History - Pertinent Findings: (-) clotting disorder PAST SURGICAL HISTORY: Past Surgical History: Procedure Laterality Date ARTHROPLASTY KNEE TOTAL 08/17/2012 08/17/2012 RIGHT in [facility] ARTHROPLASTY KNEE TOTAL 04/08/2010 04/08/2010 LEFT knee replacement at [facility] BREAST CAPSULECTOMY, PERIPROSTHETIC 08/08/2014 PERIPROSTHETIC CAPSULECTOMY BREAST performed by Azeem Lynn MD at [facility] BREAST RECONSTRUCTION W/SPECIAL EVENTS PLANNER 02/03/2014 BREAST RECONSTRUCTION WITH TISSUE SPECIAL EVENTS PLANNER performed by Azeem Lynn MD at [facility] BX BREAST PERCUT W/O IMAGE 12/06/2013 12/06/2013 left breast core bx - invasive ductal carcinoma - Gómez's Macario - CARPAL TUNNEL SURGERY left CARPAL TUNNEL SURGERY right COLONOSCOPY 2008 repeat in 10 yrs COLONOSCOPY, DIAGNOSTIC (RECTUM) 02/21/2019 Melanosis, repeat 10 yrs/COLONOSCOPY FLEXIBLE PROXIMAL DIAGNOSTIC performed by Pierce Diaz MD at [facility] IDENTIFY SENTINEL NODE, RADIOACTIVE TRACER 02/03/2014 INJECTION PROCEDURE FOR IDENTIFICATION SENTINEL NODE performed by Stacy Magana MD at [facility] INFORMATION 05/1999 fx right ankle with plates and screws / [facility] MASTECTOMY, PARTIAL 05/02/2002 05/02/2002 LEFT partial mastectomy /slnb - Dr. Paulino MASTECTOMY, SIMPLE, COMPLETE 02/03/2014 MASTECTOMY SIMPLE COMPLETE performed by Stacy Magana MD at [facility] REMOVE CATARACT, INSERT LENS PROSTH 2001 2001 cataract removal - left REMOVE CATARACT, INSERT LENS PROSTH right cataract removal REMOVE TISSUE FOR GRAFT Left 04/12/2015 OBTAIN TISSUE GRAFTS OTHER performed by Azeem Lynn MD at OR [facility] REPLACE TISSUE SPECIAL EVENTS PLANNER 08/08/2014 REPLACEMENT EXPANDERS WITH PERMANENT PROSTHESIS performed by Azeem Lynn MD at [facility] REVISE KNEE JOINT REPLACEMENT Left 09/07/2018 TOTAL KNEE REVISION FEMUR AND TIBIA performed by Lauro Pabon MD at [facility] REVISION OF BREAST RECONSTRUCTION Right 04/12/2015 REVISION OF BREAST RECONSTRUCTION performed by Azeem Lynn MD at [facility] SHOULDER ARTHROSCOPY, DX ??? left shoulder SHOULDER ARTHROSCOPY, DX ??? right SKIN TISSUE REARRANGEMENT 08/08/2014 SKIN TISSUE REARRANGEMENT performed by Azeem Lynn MD at OR [facility] SKIN TISSUE REARRANGEMENT, ADD-ON 08/08/2014 SKIN TISSUE REARRANGEMENT, ADD-ON performed by Azeem Lynn MD at OR [facility] FAMILY HISTORY: Family History Problem Relation Age of Onset Heart Disorder Father Lung Disorder Father Cancer Mother breast Hypertension Mother Arthritis Mother Family History - Pertinent Findings: (-) clotting disorder SOCIAL HISTORY: Social History Tobacco Use Smoking status: Never Smokeless tobacco: Never Vaping Use Vaping Use: Never used Substance Use Topics Alcohol use: Yes Comment: 1 glass of wine per night Drug use: No CURRENT MEDICATIONS: Note that discontinued and completed medications (per the MAR) continue to display for 24 hours. Ordered medications to be given in the future also display. Current Outpatient Medications Medication Sig Dispense Refill [...] Capsule in the evening. Take with meals. Eye Health Oral Capsule Take by mouth . Hair/Skin/Nails Oral Tablet Take 1 Tablet by mouth in the morning. Triamcinolone Acetonide 0.1 % External Cream (Aristocort) Apply topically to affected area 2 times a day. To affected area. (Patient not taking: Reported on 06/08/2023) 80 g 1 Lisinopril 10 MG Oral Tablet (Prinivil) TAKE [...] increase to twice daily 90 Capsule 3 No current facility-administered medications for this visit. ALLERGIES: Cephalexin monohydrate and Cephalosporins ROS: Constitutional: Negative for fatigue, fever, appetite change, unexplained weight loss. ENT: Negative for hearing loss, sore throat. Respiratory: Negative for cough, shortness of breath, dyspnea. Musculoskeletal: Negative for neck, mid-back pain. + low back and LE pain - see HPI Neurological: Negative for headaches, seizures. + paresthesias B LE - see HPI Genitourinary: Negative for dysuria, urinary frequency, hematuria. Hematologic/ Lymphatic: Negative for easy bleeding, bruising, lymphadenopathy. Gastrointestinal: Negative for abdominal pain, nausea, vomiting, constipation, diarrhea. Cardiovascular: Negative for chest pain, palpitations, ankle swelling, orthopnea. PHYSICAL EXAMINATION: Most Recent Vital Signs: There were no vitals filed for this visit. General Appearance: Patient appears to be about stated age, pleasant and cooperative with normal affect. HEENT: head normocephalic, pupils equal round and reactive to light and accommodation, EOMI, hearing intact and equal bilaterally, and nose clear, throat normal Chest: No gross abnormality. Nonlabored breathing. Lumbar Spine: Normal lumbar lordatic curvature is present. Skin is intact without gross abnormalities. No masses palpable. Midline, B paravertebral musculature and B sacroiliac joint nontender. No myofascial trigger points. Limited active ROM with flexion and extension of the lumbar spine. Lower Extremity Strength: Hip Flexion 5/5 bilaterally. Hip Abductor 5/5 bilaterally. Hip Adductor 5/5 bilaterally. Extensor Hallicus Longus 5/5 bilaterally. Deep Tendon Reflex: Patellar: 2/4 bilaterally. Achilles: 2/4 bilaterally. Low Back Provocative Testing: CELINE test: negative bilaterally. Straight Leg Raise Test: positive bilaterally. Lumbar Facet Loading: positive bilaterally. Sensation: Dermatomal sensation not formally tested. Grossly normal and symmetric unless otherwise specified. Gait: Intact, no sign of ataxia. Ambulates without assistance. IMAGING: No recent L spine imaging L spine MRI 2008 revealed moderate to severe central stenosis -- concerned for progressive disease. ASSESSMENT: Lumbar radicular pain Spinal stenosis with neurogenic claudication PLAN: Chronic low back pain with progressive B LE radiculopathy. Describes neurogenic claudication as well. Will update L spine imaging including xray (flex/ext views due to known listhesis,) along with L spine MRI. Follow up to review images. Anticipate scheduling LESI, pending MRI results. Requesting medication for pain relief. No recent oral steroid. Will begin oral prednisone taper. Possible side effects of prednisone such as facial flushing, fluid retention, insomnia and hyperglycemia were reviewed and accepted. Advised to avoid NSAID use while taking prednisone. Patient stated understanding. Consider further titration gabapentin to TID dosing, although somewhat concerned for age. May benefit from trial of Cymbalta, in light of significant stressors in life. Estee Redd PA-C 01/22/2024 documented in this encounter Nursing Notes * Ignacia Hand LPN - 01/22/2024 2:29 PM EST Patient presents with low back and b/l lower ext pain and numbness that's been worse in the last few months Lower ext numbness with sitting on toilet, occ walking-has fallen due to this and uses cane now Back brace failed No PT Sees chiro-uses rub on cream they gave her No lumbar spine imaging recently Hx of inj's at [facility] and [place] for different pain but had relief documented in this encounter Plan of Treatment Upcoming Encounters Date Type Department Care Team (Late st Contact Info) Description 02/29/2024 1:30 PM EDT [place], [address] [place] [address] 06/09/2024 1:00 PM EDT Office Visit Neurology [facility] [address] [facility] [place] [address] Johanna Cavazos MD [address] [facility] [place] [address] 12/08/2024 11:00 AM EST Office Visit [facility] [address] [place] [address] Quentin Silveira MD [address] [place] [address] Pending Results Name Type Priority Associated Diagnoses Date /Time XR L SPINE COMPLETE W BENDING 6 VIEWS Medical Imaging Routine Lumbar radicular pain Spinal stenosis of lumbar region with neurogenic claudication 01/22/2024 3:27 PM EST Scheduled Orders Name Type Priority Associated Diagnoses Orde r Schedule MRI L SPINE WO CONTRAST Medical Imaging Routine Lumbar radicular pain Spinal stenosis of lumbar region with neurogenic claudication Expected: 01/29/2024, Expires: 02/21/2025 Scheduled Procedures Name Priority Associated Diagnoses Date/Ti me COLONOSCOPY FLEXIBLE PROXIMA L DIAGNOSTIC Recall Special screening for malignant neoplasms, [...] this encounter Medical Devices Implanted Type Area Category Analyst Device Identifier Shelf Expiration Date Model / Serial / Lot Cement Bone R 1112-140-01 - [id number] Implanted:Qty: 1 on 01/09/2010 at OR [facility] Left: Knee [employer] 04/23/2014 00-1112-14 0- / / [id number] Femur Nexgn D Left - [id number] Implanted:Qty: 1 on 01/09/2010 at OR [facility] Left: Knee [employer] 10/23/2019-5996-01 4-51 / / [id number] Patella Poly Nexgen - [id number] Implanted:Qty: 1 on 01/09/2010 at OR [facility] Left: Knee [employer] 11/23/2017-5972-06 5-32 / / [id number] Plate Tibial Flu - [id number] Implanted:Qty: 1 on 01/09/2010 at OR [facility] Left: Knee [employer] 11/23/2019-5996-03 8- / [id number] Surface Flex Cd 10 - [id number] Implanted:Qty: 1 on 01/09/2010 at OR [facility] Left: Knee [employer] 10/23/2017-5964-03 0-10 / / [id number] Femur Option Lps Er - [id number] Implanted:Qty: 1 on 08/17/2012 at OR [facility] Right: Knee [employer] 06/22/2022-5764-01 5-52 / / [id number] Block [place] Syls3 10 - [id number] Implanted:Qty: 1 on 08/17/2012 at OR [facility] Right: Knee [employer] 02/20/2017-5886-06 3-10 / / [id number] Cement Antibiotic Bone - [id number] Implanted:Qty: 1 on 08/17/2012 at OR [facility] Right: Knee TYESHA : ORTHOPAEDICS 03/22/2014 6197-9-010 / / [id number] Breast Implant 354-5494 Saline - [id number] Implanted:Qty: 1 on 02/03/2014 at OR [facility] Left: Breast MENTOR [employer]I 12/23/2016 354-2514 / [id number] / [id number] Graft Allomax 1.0 6x16 - [id number] Implanted:Qty: 1 on 02/03/2014 at OR [facility] Left: Breast CR BARD : DAVOL 11/22/2018 [id number] / [id number] / [id number] Graft Allomax 1.0 6x16 - [id number] Implanted:Qty: 1 on 02/03/2014 at OR [facility] Right: Breast CR BARD : DAVOL 11/22/2018 [id number] / [id number] / [id number] Breast Implant 354-2514 Saline - [id number] Implanted:Qty: 1 on 02/03/2014 at OR [facility] Right: Breast MENTOR [employer]I 01/20/2017 354-2514 / [id number] / [id number] Implant Brst Krys Hp 350-6504bc - [id number] Implanted:Qty: 1 on 08/08/2014 at OR [facility] Left: Breast MENT[employer] 02/20/2017 350-6504BC / [id number] / [id number] Implant Brst Krys Hp 350-6504bc - [id number] Implanted:Qty: 1 on 08/08/2014 at OR [facility] Right: Breast [employer] 10/22/2016 350-6504BC / [id number] / [id number] Cement Antibiotic Bone - [id number] Implanted:Qty: 4 on 09/07/2018 by Lauro Pabon MD at OR [facility] Left: Knee TYESHA : ORTHOPAEDICS 04/22/2019 6197-9-010 / / [id number] Restrictors [facility] Cmnt S848-2736 - [id number] Implanted:Qty: 1 on 09/07/2018 by Lauro Pabon MD at OR [facility] Left: Knee TYESHA : INSTRUMENTS 11/06/2022 G916-4529 / / [id number] Restrictors Med Cmnt Q484-5256 - [id number] Implanted:Qty: 1 on 09/07/2018 by Lauro Pabon MD at OR [facility] Left: Knee TYESHA : INSTRUMENTS 02/11/2023 T665-7311 / / [id number] Knee Baseplate Tri Tib Sz 2 - [id number] Implanted:Qty: 1 on 09/07/2018 by Lauro Pabon MD at [facility] Left: Knee TYESHA : ORTHOPAEDICS 10/21/2022 5521-B-200 / / [id number] Tri Cemented Stem 12x50 - [id number] Implanted:Qty: 1 on 09/07/2018 by Lauro Pabon MD at [facility] Left: Knee TYESHA : ORTHOPAEDICS 06/22/2023 5560-S-112 / / [id number] Triathlon Tritanium Tibial Symmetric Cone Augment Size A Implanted:Qty: 1 on 09/07/2018 by Lauro Pabon MD at [facility] Left: Knee TYESHA : ORTHOPAEDICS 07/21/2022 5549-A-110 / / [id number] Knee Triathlon Stab Sz3 L - [id number] Implanted:Qty: 1 on 09/07/2018 by Lauro Pabon MD at [facility] Left: Knee TYESHA : ORTHOPAEDICS 02/02/2023 5512-F-301 / / [id number] Triathlon Stem Firer Low Pressure 25 - [id number] Implanted:Qty: 1 on 09/07/2018 by Lauro Pabon MD at [facility] Left: Knee TYESHA : ORTHOPAEDICS 01/28/2023 5571-S-025 / / [id number] Tri Cemented Stem 12x50 - [id number] Implanted:Qty: 1 on 09/07/2018 by Lauro Pabon MD at [facility] Left: Knee TYESHA : ORTHOPAEDICS 06/18/2023 5560-S-112 / / [id number] Knee Femoral Dist Jul 02 3 L - [id number] Implanted:Qty: 2 on 09/07/2018 by Lauro Pabon MD at [facility] Left: Knee TYESHA : ORTHOPAEDICS 07/10/2021 5541-A-301 / / [id number] Knee Tri Post Augment Sz3 10 - [id number] Implanted:Qty: 1 on 09/07/2018 by Lauro Pabon MD at OR [facility] Left: Knee TYESHA : ORTHOPAEDICS 01/29/2023 5544-A-300 / / [id number] Knee Tri Post Augment Sz3 5 - [id number] Implanted:Qty: 1 on 09/07/2018 by Lauro Pabon MD at OR [facility] Left: Knee TYESHA : ORTHOPAEDICS 12/11/2022 5543-A-300 / / [id number] Knee Tib Insr Plus X3 22 - [id number] Implanted:Qty: 1 on 09/07/2018 by Lauro Paobn MD at OR [facility] Left: Knee TYESHA : ORTHOPAEDICS 05/22/2019 5537-G-222 / / [id number] documented as of this encounter Visit Diagnoses Diagnosis Lumbar radicular pain- Primary Thoracic or lumbosacral neuritis or radiculitis, unspecified Spinal stenosis of lumbar region with neurogenic claudication Spinal stenosis, lumbar region, with neurogenic claudication documented in this encounter Advance Directives Documents on File Type Date Recorded Patient Manager Call Expl anation Advance Directives and Living Will [...] the patient have Health Care Power of Park Aide? No Code Status History Code Status Date [...] Directives occurred with: Not Discussed Care Teams Firearms Model Maker Relationship Specialty Start Date End Date Quentin Silveira MD [address] [facility] [address] PCP - General 01/03/02 documented as of this encounter
--- OUTSIDE RECORDS SUMMARY | 2024-02-25 13:01 | External Medical Summary | Summary of Care ---
Author Name Unknown Organization [facility] Address [address] [place] [address] Phone [phone] Care Team Providers Care Rebar Worker Name Role Phone Quentin Silveira MD Primary Care Provider [phone] Reason for Referral * Precert (Within 10 days (routine)) - Authorized Specialty Diagnoses / Procedures Referred By Contac t Referred To Contact Cardiac Studies Diagnoses Heart murmur Procedures ECHO, COMPLETE (2D), TRANS-THORACIC Quentin Silveira MD [address] [place] [address] Referral ID Status Reason Start Date Expiration Date V isits Requested Visits Authorized [id number] Authorized Precert 12/21/2023 999 999 Reason for Visit * Reason Comments Follow Up Yearly return Encounter Details Date Type Department Care Team (Late st Contact Info) Description 12/07/2023 12:20 PM EST Office Visit [facility] [address] [place] [address] Quentin Silveira MD [address] [place] [address] Risk and functional assessment*; Heart murmur; Post-menopausal Allergies Active Allergy Reactions Criticality Noted Date Comments Cephalexin Monohydrate Other (Please comment) High 07/22/1999 respiratory distress. Cephalosporins 12/28/2009 documented as of this encounter (statuses as of 12/07/2023) Medications Medication Sig Dispensed Refills Start Date [...] a day Take by mouth. 0 Active Gabapentin 300 MG Oral Capsule (Neurontin)Indicati ons:Pain in both lower legs Take 1 Capsule (300 mg) by mouth at bedtime. 90 Capsule 3 11/04/2022 Active Additional Information Patient not taking.Reported on 12/07/2023 Baclofen 10 MG Oral Tablet (Lioresal) Take [...] THE MORNING 90 Tablet 0 11/25/2023 Active documented as of this encounter (statuses as of 12/07/2023) Active Problems Problem Noted Date Diagnosed Date [...] as of this encounter (statuses as of 12/07/2023) Resolved Problems Problem Noted Date Diagnosed Date Resolved Date Morbid obesity with body mas s index (BMI) of 40.0 to 44.9 in adult 11/25/2019 11/30/2020 Gouty arthropathy 12/08/2017 05/30/2020 Body mass index (BMI) of 40. 0 to 44.9 in adult 08/24/2017 12/08/2019 Overview: Per Obesity protocol #1 Genetic Sleep Disorder Resea [facility] Other*[id number] 05/28/2012 07/01/2016 Severe obesity with body mas [...] as of this encounter (statuses as of 12/07/2023) Immunizations Name Administration Dates Next Due COVID-19 mRNA, LNP-s, No Pre serve, 2-Dose Series (ViSSee) 10/28/2021,03/06/2021,02/13/2021 H1N1 2009 Influenza, IM 11/29/2009 PPD [...] Date Smoking Tobacco: Never Smokeless Tobacco: Never Tobacco Cessation:Counseling Given: Not Answered Alcohol Use Standard Drinks/Week Comments Yes 0 [...] Sign Reading Time Taken Comments Blood Pressure 130/64 12/07/2023 12:40 PM EST Pulse 78 12/07/2023 12:40 PM EST Temperature 36.2 C (97.1 F) 12/07/2023 12:[address] Respiratory Rate 18 12/07/2023 12:40 PM EST Oxygen Saturation 96% 12/07/2023 12:40 PM EST Inhaled Oxygen Concentration - - Weight 74 kg (163 lb 3.2 oz) 12/07/2023 12:40 PM EST Height 147.3 cm (4' 10") 12/07/2023 12:40 PM EST Body Mass Index 34.11 12/07/2023 12:40 PM EST documented in this [...] No 09/07/2018 documented as of this encounter Patient Instructions * Patient Instructions* Laura Duvall CAT - 12/07/2023 12:45 PM EST Patient Instructions - Fall Prevention (This education is for all patients over 65 regardless of symptoms) Remember to take your current medications as prescribed. In order to prevent falls, you are encouraged to: Exercise Utilize assistive/adaptive devices Avoid multifocal lenses when walking Avoid hazards in home Maintain a regular toileting schedule Any questions please contact our office. Preventing Falls in the Home (This education is for all patients over 65 regardless of symptoms) As you get older, falls are more likely. Thats because your reaction time slows. Your muscles and joints may also get stiffer, making them less flexible. Illness, medications, and vision changes can also affect your balance. A fall could leave you unable to live on your own. To make your home safer, follow these tips: Floors Put nonskid pads under area rugs Remove throw rugs Replace worn floor coverings Tack carpets firmly to each step on carpeted stairs. Put nonskid strips on the edges of uncarpeted stairs Keep floors and stairs free of clutter and cords Arrange furniture so there are clear pathways Clean up any spills right away Bathrooms Install grab bars in the tub or shower Apply nonskid strips or put a nonskid rubber mat in the tub or shower Sit on a bath chair to bathe Use bathmats with nonskid backing Lighting Keep a flashlight in each room Put a nightlight along the pathway between the bedroom and the bathroom David Patient Education Copyright 2008 - 2010 David except where otherwise noted Preventing Falls: Exercises to Improve Balance, Flexibility, Strength, and Staying Power (This education is for all patients over 65 regardless of symptoms) Certain types of exercises may help make you less likely to fall. Try the ones below. Or do other exercises that your healthcare provider suggests. Depending on your health, you may need to start slowly. Dont let that stop you. Even small amounts of exercise can help you. Be sure to talk to yourhealthcare provider before starting any exercise program. Improve Balance Many types of exercise can help improve balance. Matthew chi and yoga are good examples. Heres another one to try. You can do it anytime and almost anywhere. Stand next to a counter or solid support. Push yourself up onto your tiptoes. Hold for 5 seconds. If you start to lose your balance, hold on to the counter. Rest and repeat 5 times. Work up to holding for 20 to 30 seconds, if you can. Increase Flexibility Being more flexible makes it easier for you to move around safely. Try exercises like the seated hamstring stretch. Sit in a chair and put one foot on a stool. Straighten your leg and reach with both hands down either side of your leg. Reach as far down your leg as you can. Hold for about 20 seconds. Go back to the starting position. Then repeat 5 times. Switch legs. Build Strength Resistance exercises help build strength. You can do them without equipment. Or you can use weights, elastic bands, or special machines. One such exercise is called the biceps curl. You can hold a 1 pound weight or even a can of soup. Do this exercise at least 3 times a week. Strive for everyday. Sit up straight in a chair. Keep your elbow close to your body and your wrist straight. Bend your arm, moving your hand up to your shoulder. Then slowly lower your arm. Repeat 5 times. Switch to the other arm. Build Your Staying Power Aerobic exercises make your heart and lungs stronger so you can keep moving longer. Walking and swimming are two of the best types of exercises you can do. Using a stationary bike is great, too. Find an aerobic exercise that you enjoy. Start slowly and build up. Even 5 minutes is helpful. Aimfor a goal of 30 minutes, at least 3 times a week. You dont have to do 30 minutes in one session. Break it up and walk a little throughout the day. More Helpful Tips Start easy. Slowly work up to doing more. Talk with your healthcare provider about the best exercises for you. Call senior centers or health clubs about exercise programs. If needed, have a family member watch you walk every so often to check your stability. Exercise with a friend. Choose an activity you both enjoy. Try exercises that you can do anytime, anywhere. Here are two examples. Have someone with you when you first try these: Practice walking by placing one foot right in front of the other. Stand up and sit down 10 times. Repeat this throughout the day. [employer] Now Patient Education Copyright 2008 [employer] Now except where otherwise noted. Preventing Falls: Moving Safely Using a Cane or Walker (This education is for all patients over 65 regardless of symptoms) Keep the cane away from your feet so you dont trip. A walking aid, such as a cane or walker, can help you stay more independent and avoid falls. Remember to keep your walking aid within easy reach when youre in a chair or in bed. And learn how to use it safely so you dont injure yourself. Using a Cane If you have a stronger side, hold the cane on that side. Get your balance. Move the cane and your weaker leg forward. Support your weight on both the cane and your weaker side. Step with your stronger leg. Start again from step 1. If youre using a folding walker, be sure you know how to lock it open. Check that its locked open before each use. Using a Walker Roll the walker (or lift it, if youre using one without wheels) forward about 12 inches. Step forward with your weaker leg first. Use the walker to help keep your balance. Bring your other foot forward to the center of the walker. Start again from step 1. Helpful Tips Check with your healthcare provider about the right walking aid to use. Ask about a walker with a seat attached. Check the tips of your cane or walker to make sure they have nonskid covers. Move slowly from room to room. Dont ruffin. Sit down to get dressed. Use a arpan pack or backpack to keep your hands free. Get help for jobs that mean climbing, even on a stepstool. [employer] Patient Education Copyright 2008 - 2010 [employer] except where otherwise noted. Urinary Incontinence Plan of Care Documentation: (This education is for all patients over 65 regardless of symptoms) Current medications reconciled. Patient encouraged to: Practice kegal exercises Provide education materials Use the restroom every 2 hours throughout the day Limit caffeine, alcohol, spicy foods and acidic foods Keep a bladder diary Limit fluid intake 3-4 hours before bed Lose weight Prevent constipation Take fluid pills at a time when you can get to the bathroom quickly Control sugar better if diabetic Limit fluid intake to 60 oz. per day Wear support stockings (TEDs)if you have edema Laura DuvallCAT 12/07/2023 Kegel Exercises Kegel exercises dont require special clothing or equipment. Theyre easy to learn and simple to do. And if you do them right, no one can tell youre doing them, so they can be done almost anywhere. Your doctor, nurse, or physical therapist can answer any questions you have and help you get started. A Weak Pelvic Floor The pelvic floor muscles may weaken due to aging, and vaginal childbirth, injury, surgery, chronic cough, or lack of exercise. If the pelvic floor is weak, your bladder and other pelvic organs may sag out of place. The urethra may also open too easily and allow urine to leak out. Kegel exercises can help you strengthen your pelvic floor muscles so they can better support the pelvic organs and control urine flow. How Kegel Exercises Are Done Try each of the Kegel exercises described below. When youre doing them, try not to move your leg, buttock, or stomach muscles. While youre urinating, try to stop the flow of urine. Start and stop it as often as you can. Contract as if you were stopping your urine stream, but do it when youre not urinating. Tighten your rectum as if trying not to pass gas. Contract your anus, but dont move your buttocks. Helpful Hints Do your Kegels as often as you can. The more you do them, the faster youll feel the results. Pick an activity you do often as a reminder. For instance, do your Kegels every time you sit down. Tighten your pelvic floor before you sneeze, get up from a chair, cough, laugh, or lift. This protects your pelvic floor from injury and can help prevent urine leakage. Try to hold each Kegel for a slow count to five. You probably wont be able to hold them for thatlong at first, but keep practicing. It will get easier as your pelvic floor gets stronger. Eventually, special weights that you place in your vagina may be recommended to help make your Kegels even more effective. David Patient Education Copyright 2009 - 2010 David except where otherwise noted. Here are some helpful tips for your urinary incontinence: (This education is for all patients over 65 regardless of symptoms) Practice Kegel exercises Use the restroom every 2 hours throughout the day Limit caffeine, alcohol, spicy foods, and acidic foods Keep a bladder diary Limit fluid intake 3-4 hours before bed Lose weight Prevent constipation Take fluid pills at a time when can get to the bathroom quickly Control sugar better if diabetic Limit fluid intake to 60 oz. per day Any questions, please feel free to contact our office. documented in this encounter Progress Notes * Quentin Silveira MD - 12/07/2023 1:48 PM EST Subjective: Raysa Singh is a 73 year old female. Chief Complaint Patient presents with Follow Up Yearly return HPI: 73-year-old seen today for annual exam. Her past medical history includes hypertension obstructive sleep apnea for which she tells me she consistently uses her CPAP except when she stays with her 97-year-old mother which is occasionally. A history of osteoarthritis. She has had both knees replaced. History spinal stenosis lumbar region which she manages. Has been getting regular chiropractictreatments with Dr. Scott in [facility]. She has had breast cancer which led to bilateral mastectomy. Um gives no complaints. No chest pain or shortness of breath. No heart racing. No difficulty swallowing or regular heartburn. Patient Active Problem List Diagnosis Code Cataract [...] left foot M20.12 S/P mastectomy, bilateral Z90.13 Current Outpatient Medications Medication Sig Dispense Refill CALCIUM + D 600-200 MG-UNIT OR TABS 1 po qd 0 0 MULTIPLE VITAMINS PO TABS 1 tab once a day NATURAL SUPPLEMENT Take by mouth daily. Natural laxatives from [employer] Ascorbic Acid 125 MG Oral Tablet Chewable Take by mouth. Probiotic Acidophilus BioBeads Oral Capsule Take 1 [...] Gabapentin 300 MG Oral Capsule (Neurontin) Take 1 Capsule (300 mg) by mouth at bedtime. (Patient not taking: Reported on 12/07/2023) 90 Capsule 3 Baclofen 10 MG Oral Tablet (Lioresal) Take 1 Tablet (10 mg) by mouth in the morning and 1 Tablet (10 mg) before bedtime. (Patient not taking: Reported on 12/04/2022) 60 Tablet 0 Triamcinolone Acetonide 0.1 % External Cream (Aristocort) Apply topically to affected area 2 times a day. To affected area. (Patient not taking: Reported on 06/08/2023) 80 g 1 No current facility-administered medications for this visit. Review of patient's allergies indicates: Allergen Reactions Cephalexin Monohydrate Other (Please comment) respiratory distress. Cephalosporins Objective: BP 130/64 | Pulse 78 | Temp 36.2 C (97.1 F) | Resp 18 | Ht 1.473 m (4' 10") | Wt 74 kg (163 lb 3.2 oz) | LMP 01/21/2001 | SpO2 96% | BMI 34.11 kg/m | BSA 1.74 m Physical Exam: CONST: alert, pleasant, no acute distress HEAD: normocephalic, atraumatic NECK: supple, soft, no adenopathy EARS: canals normal, TMs normal Eyes - PERRLA, EOM'I OROPHARYNX: clear, no swelling or erythema, moist CV: regular rate and rhythm, grade 3/6 short systolic murmur-right upper sternal border CHEST: clear to auscultation bilaterally, no rales or wheezing ABD: soft, non tender, non distended, no masses or hepatosplenomegaly EXT: no edema, no joint swelling or deformities, NEURO: AAOx3, no gross focal deficits, cerebellar signs normal, affect appropriate MENTAL STATUS: no evidence of thought disorder, no delusional thought, no evidence of paranoia, thought is non-tangential. SKIN: no rash or significant lesions Results for orders placed or performed in visit on 11/26/23 HEMOGLOBIN A1C Result Value Ref Range Hemoglobin A1C 5.6 4.0 - 5.6 % Estimated Average Glucose 114 <126 mg/dL LIPID PANEL WITH DIRECT LDL IF TG IS HIGH Result Value Ref Range Triglycerides 113 <=174 mg/dL Cholesterol 163 <200 mg/dL HDL Cholesterol 63 >49 mg/dL Non-HDL Cholesterol 100 <=159 mg/dL LDL Cholesterol 77 <=129 mg/dL COMPREHENSIVE METABOLIC PANEL Result Value Ref Range BUN 15 6 - 20 mg/dL Creatinine 0.9 0.5 - 1.0 mg/dL Estimated Glomerular Filtration Rate 68 >=60 mL/min Sodium 141 135 - 146 mmol/L Potassium 4.7 3.5 - 5.1 mmol/L Chloride 103 98 - 107 mmol/L CO2 28 22 - 32 mmol/L Anion Gap 10 7 - 15 mmol/L Glucose 100 70 - 120 mg/dL Albumin 4.9 3.8 - 5.0 g/dL AST 36 (H) 10 - 35 U/L Alkaline Phosphatase 71 35 - 130 U/L Bilirubin, Total 0.5 <=1.2 mg/dL Calcium 10.1 8.4 - 10.2 mg/dL Protein 7.7 6.0 - 8.3 g/dL ALT 25 10 - 35 U/L *Note: Due to a large number of results and/or encounters for the requested time period, some results have not been displayed. A complete set of results can be found in Results Review. ASSESSMENT/PLAN: 1. Hypertension-well controlled. Continue the combination lisinopril 10 mg daily and hydrochlorothiazide 25 mg daily 2. Hyperlipidemia-well controlled. Continue simvastatin 20 mg a day. 3. Obstructive sleep apnea-continue CPAP 4. Heart murmur-probable aortic sclerosis but recommend echocardiogram to rule out aortic stenosis.Discussed with patient. She is agreeable 5. Rule out osteoporosis-check DEXA scan. Continue calcium 1 daily See again 1 year. Encouraged shingles vaccine. She is going to check to see if it is insurance covered. Quentin Silveira MD * Laura Duvall LPN - 12/07/2023 12:45 PM EST Fall Risk Plan of Care Documentation: - Current medications reconciled Patient encouraged to: - Exercise - Provide education materials for Core strengthening - Utilize assistive/adaptive devices - Provide education materials - Avoid multifocal lenses when walking - Avoid hazards in home - Provide education materials - Maintain a regular toileting schedule Laura Duvall LPN 12/07/2023 documented in this encounter Nursing Notes * Laura Duvall LPN - 12/07/2023 12:46 PM EST The patient has been properly identified by confirmation of name and date of . Chief Complaint Patient presents with Follow Up Yearly return documented in this encounter Plan of Treatment Upcoming Encounters Date Type Department Care Team (Late st Contact Info) Description 06/09/2024 1:00 PM EDT Office Visit Neurology [facility] [address] [place] [address] Johanna Cavazos MD [address] [place] [address] 12/08/2024 11:00 AM EST Office Visit [facility] [address] [place] [address] Quentin Silveira MD [address] [place] [address] Scheduled Orders Name Type Priority Associated Diagnoses Orde r Schedule DEXA SCAN/BONE MINERAL AXIAL Medical Imaging Routine Post-menopausal Ordered: 12/07/2023 ECHO, COMPLETE (2D), TRANS-THORACIC Echocardiology Routine Heart murmur Expected: 12/21/2023, Expires: 12/07/2024 Scheduled Procedures Name Priority Associated Diagnoses Date/Ti [...] 11/21/2021, Additional history exists Colonoscopy 02/21/2029 02/21/2019, 040 11/2018, 01/08/2009 Colorectal Cancer Screening 02/21/2029 DTaP,Tdap,and [...] this encounter Medical Devices Implanted Type Area Fresh Foods Cake Decorator Device Identifier Shelf Expiration Date Model / Serial / Lot Surface Flex Cd 10 - [id number] Implanted:Qty: 1 on 01/09/2010 at OR [facility] Left: Knee [employer] 10/23/2017 [id number] / / [id number] Cement Antibiotic Bone - [id number] Implanted:Qty: 1 on 08/17/2012 at OR [facility] Right: Knee TYESHA : ORTHOPAEDICS 03/22/2014 [id number] / / [id number] Graft Allomax 1.0 6x16 - [id number] Implanted:Qty: 1 on 02/03/2014 at OR [facility] Right: Breast CR BARD : DAVOL 11/22/2018 [id number] / [id number] / [id number] Implant Brst Krys Hp [id number] - [id number] Implanted:Qty: 1 on 08/08/2014 at OR [facility] Right: Breast MENT[employer] 10/22/2016 [id number] / [id number] / [id number] Knee Tib Insr Plus X3 22 - [id number] Implanted:Qty: 1 on 09/07/2018 by Lauro Pabon MD at OR [facility] Left: Knee TYESHA : ORTHOPAEDICS 05/22/2019 [id number] / / [id number] documented as of this encounter Visit Diagnoses Diagnosis Risk and functional assessment- Primary Screening for unspecified condition Heart murmur Undiagnosed cardiac murmurs Post-menopausal Asymptomatic postmenopausal status (age-related) (natural) documented in this encounter Advance Directives Documents on File Type Date Recorded 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 No Code Status History Code Status Date [...] Directives occurred with: Not Discussed Care Teams Rebar Worker Relationship Specialty Start Date End Date Quentin Silveira MD [address] [place] [address] PCP - General 01/03/02 documented as of this encounter
--- OUTSIDE RECORDS SUMMARY | 2024-02-25 13:01 | External Medical Summary | Summary of Care ---
Author Name Unknown Organization [facility] Address [address] [place] [address] Phone [phone] Care Team Providers Care Transition Nurse Name Role Phone Quentin Silveira MD Primary Care Provider [phone] Reason for Referral * Precert (Within 10 days (routine)) - Authorized Specialty Diagnoses / Procedures Referred By Contac t Referred To Contact Radiology Diagnoses Lumbar radicular pain Spinal stenosis of lumbar region with neurogenic claudication Procedures MRI L SPINE WO CONTRAST Pamella Doyle PA-C [address] [place] [facility] [address] Referral ID Status Reason Start Date Expiration Date V isits Requested Visits Authorized [id number] Authorized 01/29/2024 999 999 Reason for Visit * Reason Comments Lumbar Pain W/radiation Lower Extremity Weakness * Evaluate & Treat - Unlimited Visits (Within 30 days (routine)) - Authorized Specialty Diagnoses / Procedures Referred By Contac t Referred To Contact Pain Management / Pain Medicine Diagnoses Spinal stenosis of lumbar region without neurogenic claudication Quentin Silveira MD [facility] [address] Referral ID Status Reason Start Date Expiration Date Visits Requested Visits Authorized [id number] Authorized Specialty Services Required 01/19/2024 999 999 Encounter Details Date Type Department Care Team (Late st Contact Info) Description 01/22/2024 2:30 PM EST Office Visit [facility], [facility] [address] [place] [address] Pamella Doyle PA-C [address] [place] [address] Lumbar radicular pain*; Spinal stenosis of lumbar region with neurogenic claudication Allergies Active Allergy Reactions Criticality Noted Date Comments Cephalexin Monohydrate Other (Please comment) High 07/22/1999 respiratory distress. Cephalosporins 12/28/2009 documented as of this encounter (statuses as of 01/25/2024) Medications Medication Sig Dispensed Refills Start Date [...] as of this encounter (statuses as of 01/25/2024) Active Problems Problem Noted Date Diagnosed Date [...] as of this encounter (statuses as of 01/25/2024) Resolved Problems Problem Noted Date Diagnosed Date Resolved Date Morbid obesity with body mas s index (BMI) of 40.0 to 44.9 in adult 11/25/2019 11/30/2020 Gouty arthropathy 12/08/2017 05/30/2020 Body mass index (BMI) of 40. 0 to 44.9 in adult 08/24/2017 12/08/2019 Overview: Per Obesity protocol #1 Genetic Sleep Disorder [facility] Other*[id number] 05/28/2012 07/01/2016 Severe obesity with body mas [...] as of this encounter (statuses as of 01/25/2024) Immunizations Name Administration Dates Next Due COVID-19 mRNA, LNP-s, No Pre serve, 2-Dose Series ([place]) 10/28/2021,03/06/2021,02/13/2021 Diptheria/Tetanus (Adult) 11/24/1987 H1N1 2009 Influenza, [...] as of this encounter Progress Notes * Pamella Doyle PA-C - 01/22/2024 2:27 PM EST GENERAL HISTORY & PHYSICAL EXAMINATION - Anesthesia and Pain Service Name: Raysa Singh Location: [facility], [facility] REFERRING PHYSICIAN: Quentin Silveira MD Thank [...] cane to ambulate. Patient requested referral thru [facility] portal. Has not been evaluated by PCP for this complaint. No recent spine imaging. With further chart review, L spine xray 2017 - mild scoliotic curvature, grade 1 listhesis L4/5, DDD lower lumbar region L3 thru S1. Hx lumbar LOY, most recently 2011 in [place], which she did find benefit. Fo llows [...] ARTHROPLASTY KNEE TOTAL 08/17/2012 08/17/2012 RIGHT in [facility] ARTHROPLASTY KNEE TOTAL 04/08/2010 04/08/2010 LEFT knee replacement at [facility] BREAST CAPSULECTOMY, PERIPROSTHETIC 08/08/2014 PERIPROSTHETIC CAPSULECTOMY BREAST performed by Azeem Lynn MD at [facility] BREAST RECONSTRUCTION W/SOCIOLOGY TEACHER 02/03/2014 BREAST RECONSTRUCTION WITH TISSUE SOCIOLOGY TEACHER performed by Azeem Lynn MD at [facility] BX BREAST PERCUT W/O IMAGE 12/06/2013 12/06/2013 left breast core bx - invasive ductal carcinoma - Gómez's Macario - CARPAL TUNNEL SURGERY left CARPAL TUNNEL SURGERY right COLONOSCOPY 2008 repeat in 10 yrs COLONOSCOPY, DIAGNOSTIC (RECTUM) 02/21/2019 Melanosis, 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 MASTECTOMY, PARTIAL 05/02/2002 05/02/2002 LEFT partial mastectomy /slnb - Dr. Paulino MASTECTOMY, SIMPLE, COMPLETE 02/03/2014 MASTECTOMY SIMPLE COMPLETE performed by Stacy Magana MD at [place] [facility] REMOVE CATARACT, INSERT LENS PROSTH 2001 2001 cataract removal - left REMOVE CATARACT, INSERT LENS PROSTH right cataract removal REMOVE TISSUE FOR GRAFT Left 04/12/2015 OBTAIN TISSUE GRAFTS OTHER performed by Azeem Lynn MD at [place] [facility] REPLACE TISSUE SOCIOLOGY TEACHER 08/08/2014 REPLACEMENT EXPANDERS WITH PERMANENT PROSTHESIS performed by Azeem Lynn MD at [facility] REVISE KNEE JOINT REPLACEMENT Left 09/07/2018 TOTAL KNEE REVISION FEMUR AND TIBIA performed by Lauro Pabon MD at [place] [facility] REVISION OF BREAST RECONSTRUCTION Right 04/12/2015 REVISION OF BREAST RECONSTRUCTION performed by Azeem Lnyn MD at [facility] SHOULDER ARTHROSCOPY, DX ??? left shoulder SHOULDER ARTHROSCOPY, DX ??? right SKIN TISSUE REARRANGEMENT 08/08/2014 SKIN TISSUE REARRANGEMENT performed by Azeem Lynn MD at [facility] SKIN TISSUE REARRANGEMENT, ADD-ON 08/08/2014 SKIN TISSUE REARRANGEMENT, ADD-ON performed by Azeem Lynn MD at [place] [facility] FAMILY HISTORY: Family History Problem Relation Age [...] in light of significant stressors in life. Pamella Doyle PA-C 01/22/2024 documented in this encounter Nursing [...] spine imaging recently Hx of inj's at [facility] and [place] for different pain but had relief documented in this encounter Miscellaneous Notes * Addendum Note - Pamella Doyle PA-C - 01/25/2024 9:00 AM ESTAddended by: PAMELLA DOYLE on: 01/25/2024 09:00 AM Modules accepted: Orders documented in this encounter Plan of Treatment Upcoming Encounters Date Type Department Care Team (Late st Contact Info) Description 02/29/2024 1:30 PM EDT Imaging Radiology, [address] [place] [address] 06/09/2024 1:00 PM EDT Office Visit Neurology Javid Hdz [place] [address] [facility] [place], [place] [address] Johanna Cavazos MD [address] [facility] [place], [place] [address] 12/08/2024 11:00 AM EST Office Visit [facility] [address] [place] [phone] Quentin Silveira MD [address] [place] [address] Scheduled Orders Name Type Priority Associated Diagnoses Orde r Schedule MRI L SPINE WO CONTRAST Medical Imaging Routine Lumbar radicular pain Spinal stenosis of lumbar region with neurogenic claudication Expected: 01/29/2024, Expires: 02/21/2025 INJECT DX/THER SUBSTANCE INTERLAMINAR LUMBAR/SACRAL W IMAGE GUIDE Procedures Routine Lumbar radicular pain Spinal stenosis of lumbar region with neurogenic claudication Ordered: 01/25/2024 Scheduled Procedures Name Priority Associated Diagnoses Date/Ti [...] this encounter Medical Devices Implanted Type Area Live Out Nanny Device Identifier Shelf Expiration Date Model / Serial / Lot Cement Bone R 1112-140-01 - [id number] Implanted:Qty: 1 on 01/09/2010 at [place] [facility] Left: Knee [employer] 04/23/2014 00-1112-14 0- / / [id number] Femur Nexgn D Left - [id number] Implanted:Qty: 1 on 01/09/2010 at [place] [facility] Left: Knee [employer] 10/23/2019-5996-01 4-51 / / [id number] Patella Poly Nexgen - [id number] Implanted:Qty: 1 on 01/09/2010 at [place] [facility] Left: Knee [employer] 11/23/2017-5972-06 5-32 / / [id number] Plate Tibial Flu - [id number] Implanted:Qty: 1 on 01/09/2010 at [place] [facility] Left: Knee [employer] 11/23/2019-5996-03 8-01 / / [id number] Surface Flex Cd 10 - [id number] Implanted:Qty: 1 on 01/09/2010 at [place] [facility] Left: Knee [employer] 10/23/2017-5964-03 0-10 / / [id number] Femur Option Lps Er - [id number] Implanted:Qty: 1 on 08/17/2012 at [place] [facility] Right: Knee [employer]LET [employer] 06/22/2022-5764-01 5-52 / / [id number] Block Hocking Syls3 10 - [id number] Implanted:Qty: 1 on 08/17/2012 at [place] [facility] Right: Knee [employer] 02/20/2017-5886-06 3-10 / / [id number] Cement Antibiotic Bone - [id number] Implanted:Qty: 1 on 08/17/2012 at [place] [facility] Right: Knee TYESHA : ORTHOPAEDICS 03/22/2014 6197-9-010 / / [id number] Breast Implant 354-2514 Saline - [id number] Implanted:Qty: 1 on 02/03/2014 at [place] [facility] Left: Breast MENTOR GOPI 12/23/2016 354-2514 / [id number] / [id number] Graft Allomax 1.0 6x16 - [id number] Implanted:Qty: 1 on 02/03/2014 at [place] [facility] Left: Breast CR BARD : DAVOL 11/22/2018 [id number] / [id number] / [id number] Graft Allomax 1.0 6x16 - [id number] Implanted:Qty: 1 on 02/03/2014 at [place] [facility] Right: Breast CR BARD : DAVOL 11/22/2018 [id number] / [id number] / [id number] Breast Implant 354-2514 Saline - [id number] Implanted:Qty: 1 on 02/03/2014 at [place] [facility] Right: Breast MENTOR GOPI 01/20/2017 354-2514 / [id number] / [id number] Implant Brst Krys Hp 350-6504bc - [id number] Implanted:Qty: 1 on 08/08/2014 at [place] [facility] Left: Breast MENTOR GOPI 02/20/2017 350-6504BC / [id number] / [id number] Implant Brst Krys Hp 350-6504bc - [id number] Implanted:Qty: 1 on 08/08/2014 at [place] [facility] Right: Breast MENTOR GOPI 10/22/2016 350-6504BC / [id number] / [id number] Cement Antibiotic Bone - [id number] Implanted:Qty: 4 on 09/07/2018 by Lauro Pabon MD at [place] [facility] Left: Knee TYESHA : ORTHOPAEDICS 04/22/2019 6197-9-010 / / [id number] Restrictors Med Cmnt R049-7942 - [id number] Implanted:Qty: 1 on 09/07/2018 by Lauro Pabon MD at [place] [facility] Left: Knee TYESHA : INSTRUMENTS 11/06/2022 Z169-6777 / / [id number] Restrictors Med Cmnt K607-2052 - [id number] Implanted:Qty: 1 on 09/07/2018 by Lauro Pabon MD at [place] [facility] Left: Knee TYESHA : INSTRUMENTS 02/11/2023 U800-7317 / / [id number] Knee Baseplate Tri Tib Sz 2 - [id number] Implanted:Qty: 1 on 09/07/2018 by Lauro Pabon MD at [place] [facility] Left: Knee TYESHA : ORTHOPAEDICS 10/21/2022 5521-B-200 / / [id number] Tri Cemented Stem 12x50 - [id number] Implanted:Qty: 1 on 09/07/2018 by Lauro Pabon MD at [place] [facility] Left: Knee TYESHA : ORTHOPAEDICS 06/22/2023 5560-S-112 / / [id number] Triathlon Tritanium Tibial Symmetric Cone Augment Size A Implanted:Qty: 1 on 09/07/2018 by Lauro Pabon MD at [place] [facility] Left: Knee TYESHA : ORTHOPAEDICS 07/21/2022 5549-A-110 / / [id number] Knee Triathlon Stab Sz3 L - [id number] Implanted:Qty: 1 on 09/07/2018 by Lauro Pabon MD at [place] [facility] Left: Knee TYESHA : ORTHOPAEDICS 02/02/2023 5512-F-301 / / [id number] Triathlon Stem Novelty Twister Operator 25 - [id number] Implanted:Qty: 1 on 09/07/2018 by Lauro Pabon MD at [place] [facility] Left: Knee TYESHA : ORTHOPAEDICS 01/28/2023 5571-S-025 / / [id number] Tri Cemented Stem 12x50 - [id number] Implanted:Qty: 1 on 09/07/2018 by Lauro Pabon MD at [place] [facility] Left: Knee TYESHA : ORTHOPAEDICS 06/18/2023 5560-S-112 / / [id number] Knee Femoral Dist Aug 10 3 L - [id number] Implanted:Qty: 2 on 09/07/2018 by Lauro Pabon MD at [place] [facility] Left: Knee TYESHA : ORTHOPAEDICS 07/10/2021 5541-A-301 / / [id number] Knee Tri Post Augment Sz3 10 - [id number] Implanted:Qty: 1 on 09/07/2018 by Lauro Pabon MD at [place] [facility] Left: Knee TYESHA : ORTHOPAEDICS 01/29/2023 5544-A-300 / / [id number] Knee Tri Post Augment Sz3 5 - [id number] Implanted:Qty: 1 on 09/07/2018 by Lauro Pabon MD at [place] [facility] Left: Knee TYESHA : ORTHOPAEDICS 12/11/2022 5543-A-300 / / [id number] Knee Tib Insr Plus X3 22 - [id number] Implanted:Qty: 1 on 09/07/2018 by Lauro Pabon MD at [place] [facility] Left: Knee TYESHA : ORTHOPAEDICS 05/22/2019 5537-G-222 / / [id number] documented as of this encounter Procedures Procedure Name Priority Date/Time Associated Diagnosis Comments XR L SPINE COMPLETE W BENDING 6 VIEWS Routine 01/22/2024 3:27 PM EST Lumbar radicular pain Spinal stenosis of lumbar region with neurogenic claudication documented in this encounter Results * XR L SPINE COMPLETE W BENDING 6 VIEWS (01/22/2024 3:27 PM EST) Anatomical Region Laterality Modality Vertebra, Lspine Digital Radiogr aphy 01/23/2024 8:28 PM EST Impressions 01/23/2024 8:25 PM EST IMPRESSION 1. Multilevel disc disease and facet arthropathy. 2. Anterolisthesis L4-5, L5-S1 is stable on flexion extension. 3. Scoliosis. Narrative 01/23/2024 8:25 PM EST EXAM XR L SPINE COMPLETE W BENDING 6 VIEWS-01/22/2024 3:27 pm HISTORY progressive low back and LE pain COMPARISON Radiograph 05/04/2017 TECHNIQUE AP, bilateral oblique, lateral, flexion, extension, coned-down lateral views lumbar spine. FINDINGS Five lumbar-type vertebral bodies. Convex right curvature with Cabrera angle 27 degrees. Grade 1 anterolisthesis L4-5, L5-S1 is stable on flexion extension. Moderate disc disease L1 through S1. Multilevel facet arthropathy. No fracture. Procedure Note Denny Sal MD - 01/23/2024 EXAM XR L SPINE COMPLETE W BENDING 6 VIEWS-01/22/2024 3:27 pm HISTORY progressive low back and LE pain COMPARISON Radiograph 05/04/2017 TECHNIQUE AP, bilateral oblique, lateral, flexion, extension, coned-down lateralviews lumbar spine. FINDINGS Five lumbar-type vertebral bodies. Convex right curvature with Cabrera angle27 degrees. Grade 1 anterolisthesis L4-5, L5-S1 is stable on flexionextension. Moderate disc disease L1 through S1. Multilevel facetarthropathy. No fracture. IMPRESSION IMPRESSION 1. Multilevel disc disease and facet arthropathy. 2. Anterolisthesis L4-5, L5-S1 is stable on flexion extension. 3. Scoliosis. Pamella Doyle PA-C RADIOLOGY ([facility]) documented in this encounter Visit Diagnoses Diagnosis Lumbar radicular pain- Primary Thoracic or lumbosacral neuritis or radiculitis, unspecified Spinal stenosis of lumbar region with neurogenic claudication Spinal stenosis, lumbar region, with neurogenic claudication documented in this encounter Advance Directives Documents on File Type Date Recorded Patient Social Worker Psychiatric Expl anation Advance Directives and Living Will [...] the patient have Health Care Power of Waxing Machine Operator? No Code Status History Code Status Date [...] Directives occurred with: Not Discussed Care Teams Transition Nurse Relationship Specialty Start Date End Date Quentin Silveira MD [address] [place] [address] PCP - General 01/03/02 documented as of this encounter
--- OUTSIDE RECORDS SUMMARY | 2024-02-25 13:01 | External Medical Summary ---
Author Name Unknown Address Unknown Organization [id number]:LABORATORY [facility] - [address] [facility] [address] Laboratory Report Ordering Provider Test Date Status CAMILO CLAYASHWINI 11/26/2023 12:50:41 Final Observation Date Value Abnormality Reference (Units ) Status HbA1C 11/26/2023 12:50:41 5.6 4.0-5.6 (% ) Final The use of HbA1c to monitor glycemic status is based on normal hemoglobin and HbA composition. This test should not be used in patients with abnormal hemoglobin that affects the half life of the red blood cell or the in vivo glycation rates. Glucose, estimated average 11/26/2023 12:50:41 114 <126 (mg/dL) Final Performing Location LABORATORY [facility] - [address] [facility] [address]
--- OUTSIDE RECORDS SUMMARY | 2024-02-25 13:01 | External Medical Summary | Summary of Care ---
Author Name Unknown Organization [facility] Address [address] [place] [address] Phone [phone] Care Team Providers Care Disc Sander Name Role Phone Quentin Silveira MD Primary Care Provider [phone] Reason for Visit * Reason Comments Outpatient Testing Encounter Details Date Type Department Care Team (Late st Contact Info) Description 11/26/2023 12:40 PM EST Laboratory Laboratory, [place] [address] [place] [address] [facility] [address] [place] [address] Prediabetes; Dyslipidemia, goal LDL below 100; HTN, goal below 140/90 Allergies Active Allergy Reactions Criticality Noted Date Comments Cephalexin Monohydrate Other (Please comment) High 07/22/1999 respiratory distress. Cephalosporins 12/28/2009 documented as of this encounter (statuses as of 11/26/2023) Medications Medication Sig Dispensed Refills Start Date [...] at bedtime. 90 Capsule 3 11/04/2022 Active Baclofen 10 MG Oral Tablet (Lioresal) [...] as of this encounter (statuses as of 11/26/2023) Active Problems Problem Noted Date Diagnosed Date [...] as of this encounter (statuses as of 11/26/2023) Resolved Problems Problem Noted Date Diagnosed Date Resolved Date Morbid obesity with body mas s index (BMI) of 40.0 to 44.9 in adult 11/25/2019 11/30/2020 Gouty arthropathy 12/08/2017 05/30/2020 Body mass index (BMI) of 40. 0 to 44.9 in adult 08/24/2017 12/08/2019 Overview: Per Obesity protocol #1 [facility] Other*[id number] 05/28/2012 07/01/2016 Severe obesity with body mas [...] as of this encounter (statuses as of 11/26/2023) Immunizations Name Administration Dates Next Due COVID-19 mRNA, LNP-s, No Pre serve, 2-Dose Series ([employer]) 10/28/2021,03/06/2021,02/13/2021 H1N1 2009 Influenza, IM 11/29/2009 PPD [...] No 09/07/2018 documented as of this encounter Plan of Treatment Upcoming Encounters Date Type Department Care Team (Late st Contact Info) Description 12/07/2023 12:20 PM EST Office Visit [facility] [address] [place] [phone] Quentin Silveira MD [address] [place] [address] 06/09/2024 1:00 PM EDT Office Visit Neurology [address] [address] [place] [address] [place] [address] Johanna Cavazos MD [address] [facility] [place] [address] Pending Results Name Type Priority Associated Diagnoses Date /Time HEMOGLOBIN A1C Lab Routine Prediabetes 11/26/2023 12:50 PM EST LIPID PANEL WITH DIRECT LDL IF TG IS HIGH Lab Routine Dyslipidemia, goal LDL below 100 11/26/2023 12:50 PM EST COMPREHENSIVE METABOLIC PANEL Lab Routine HTN, goal below 140/90 11/26/2023 12:50 PM EST Scheduled Procedures Name Priority Associated Diagnoses Date/Ti me COLONOSCOPY FLEXIBLE PROXIMA L DIAGNOSTIC Recall Special screening for malignant neoplasms, colon Health Maintenance Due Date Last Done Comments Cologuard 1995 Fecal Occult Blood Test 1995 Sigmoidoscopy 12/07/2008 12/07/2003 Zoster Vaccines (2 of 3) 11/28/2014 10/03/2014 DXA Scan 03/13/2021 03/13/2014, 06/24/2011 COVID-19 Vaccine ( season) 2023 10/28/2021, 03/06/2021, 02/13/2021 GFR 11/04/2023 11/04/2022, 10/25, 11/19/2020, Additional history exists HbA1c 11/04/2023 11/04/2022, 10/25, 11/19/2020, Additional history exists Depression Screening 12/04/2023 12/04/2022 Albumin/Creatinine Ratio 11/04/2025 11/04/2022, 10/24 Lipid Panel 11/04/2027 11/04/2022, 10/25, 11/19/2020, Additional history exists Colonoscopy 02/21/2029 02/21/2019, 11/2018, [...] this encounter Medical Devices Implanted Type Area School Supervisor Device Identifier Shelf Expiration Date Model / Serial / Lot Surface Flex Cd 10 - [id number] Implanted:Qty: 1 on 01/09/2010 at [place] [facility] [place]: Knee [employer]LET INC 10/23/2017 00-5964-03 0-10 / / [id number] Cement Antibiotic Bone - [id number] Implanted:Qty: 1 on 08/17/2012 at [place] [facility] Right: Knee TYESHA : ORTHOPAEDICS 03/22/2014 6197-9-010 / / [id number] Graft Allomax 1.0 6x16 - [id number] Implanted:Qty: 1 on 02/03/2014 at [place] [facility] Right: Breast CR BARD : DAVOL 11/22/2018 [id number] / [id number] / [id number] Implant Brst Krys Hp 350-6504bc - [id number] Implanted:Qty: 1 on 08/08/2014 at [place] [facility] Right: Breast MENTOR GOPI 10/22/2016 350-6504BC / [id number] / [id number] Knee Tib Insr Plus X3 22 - [id number] Implanted:Qty: 1 on 09/07/2018 by Lauro Pabon MD at [place] [facility] Left: Knee TYESHA : ORTHOPAEDICS 05/22/2019 5537-G-222 / / [id number] documented as of this encounter Visit Diagnoses Diagnosis Prediabetes Other abnormal glucose Dyslipidemia, goal LDL below 100 Other and unspecified hyperlipidemia HTN, goal below 140/90 Unspecified essential hypertension documented in this encounter Advance Directives Documents on File Type Date Recorded Patient Road Roller Operator Hot Mix Expl anation Advance Directives and Living Will [...] the patient have Health Care Power of Auditing Clerk? No Code Status History Code Status Date [...] Directives occurred with: Not Discussed Care Teams Disc Sander Relationship Specialty Start Date End Date Quentin Silveira MD [address] [place] [facility] [address] PCP - General 01/03/02 documented as of this encounter
--- OUTSIDE RECORDS SUMMARY | 2024-02-25 13:01 | External Medical Summary ---
Author Name Unknown Address Unknown Organization K01:[place] [facility] [place] [address] [facility] [address] Laboratory Report Ordering Provider Test Date Status SABI CLAY 11/26/2023 12:50:41 Final Observation Date Value Abnormality Reference (Units ) Status BUN 11/26/2023 12:50:41 15 6-20 (mg/dL) Final Creatinine 11/26/2023 12:50:41 0.9 0.5-1.0 (mg/dL) Final Glomerular filtration rate/1.73 sq M.predicted [Volume Rate/Area] in Serum, Plasma or Blood by Creatinine-based formula (CKD-EPI) 11/26/2023 12:50:41 68 >=60 (mL/min) Final eGFR is calculated based on the CKD-EPI 2020 equation SODIUM 11/26/2023 12:50:41 141 135-146 (m mol/L) Final Potassium 11/26/2023 12:50:41 4.7 3.5-5.1 (m mol/L) Final Cl 11/26/2023 12:50:41 103 98-107 (mm ol/L) Final CO2 11/26/2023 12:50:41 28 22-32 (mmo l/L) Final Anion gap 11/26/2023 12:50:41 10 7-15 (mmol /L) Final Glucose 11/26/2023 12:50:41 100 70-120 (mg /dL) Final Albumin 11/26/2023 12:50:41 4.9 3.8-5.0 (g /dL) Final AST (Aspartate aminotransferase) 11/26/2023 12:50:41 36 Above high normal 10-35 (U/L) Final Alk Phos 11/26/2023 12:50:41 71 35-130 (U/ L) Final Bilirubin, Total 11/26/2023 12:50:41 0.5 <=1 .2 (mg/dL) Final Calcium 11/26/2023 12:50:41 10.1 8.4-10.2 ( mg/dL) Final Protein 11/26/2023 12:50:41 7.7 6.0-8.3 (g /dL) Final ALT (Alanine aminotransferase) 11/26/2023 12:50:41 25 10-35 (U/L) Best bustos Performing Location [facility] [place] [facility] [address] [facility] [address]
--- OUTSIDE RECORDS SUMMARY | 2024-02-25 13:01 | External Medical Summary ---
Author Name Unknown Address Unknown Organization K01:[facility] [place] - [address] [facility] [address] Laboratory Report Ordering Provider Test Date Status SABI CLAY 11/26/2023 12:50:41 Final Observation Date Value Abnormality Reference (Units ) Status Triglyceride 11/26/2023 12:50:41 113 <=174 ( mg/dL) Final Triglyceride Reference Range s (mg/dL):
<150 Acceptable
150-174 Borderline high
175-499 High
>=500 Very high Cholesterol 11/26/2023 12:50:41 163 <200 (mg /dL) Final Total Cholesterol Reference Ranges (mg/dL):
<200 Desirable
200-239 Borderline high
>=240 High HDL 11/26/2023 12:50:41 63 >49 (mg/dL ) Final HDL Cholesterol Reference Ra nges (mg/dL):
>=60 High (Desirable)
<50 Low (Undesirable) For Females
<40 Low (Undesirable) For Males NON-HDL CHOLESTEROL 11/26/2023 12:50:41 100 <=159 (mg/dL) Final Non-HDL Cholesterol Referenc e Range (mg/dL):
<100 Target level for high risk ASCVD patient
<130 Optimal for general population
130-159 Near optimal for general population
160-189 Borderline High
190-219 High
>=220 Very High LDL, (calculated) 11/26/2023 12:50:41 77 <= 129 (mg/dL) Final LDL Cholesterol Reference Ra nges (mg/dL):
<70 Target level for high risk ASCVD patient
<100 Optimal for general population
100-129 Near optimal for general population
130-159 Borderline high
160-189 High
>=190 Very high Performing Location [facility] - [address] [facility] [address]
--- OUTSIDE RECORDS SUMMARY | 2024-02-25 13:01 | External Medical Summary | Summary of Care ---
Author Name Unknown Organization [facility] Address [address] [place] [address] Phone [phone] Care Team Providers Care Want Ad Supervisor Name Role Phone Quentin Silveira MD Primary Care Provider [phone] Reason for Referral * Evaluate & Treat - Unlimited Visits (Within 30 days (routine)) - Authorized Specialty Diagnoses / Procedures Referred By Contac t Referred To Contact Pain Management / Pain Medicine Diagnoses Spinal stenosis of lumbar region without neurogenic claudication Quentin Silveira MD [address] [place] [address] Referral ID Status Reason Start Date Expiration Date Visits Requested Visits Authorized [id number] Authorized Specialty Services Required 01/19/2024 999 999 Question Answer Referral Priority Within 30 days (routine) Where should this appointment be scheduled? ising Reason for referral? Interventional Pain Management - (Injection) What condition is the patient being referred for? Lumbar Radiculopathy What is the preferred location to have this test performed? [facility] Comments Patient Name: Raysa Singh Date of : 1950 Department Phone Number: MRI or CT (if unable to have a MRI) is recommended if any of the following apply: 1. Patient has neck or back pain with radiation to extremities. A previous MRI will be accepted if symptoms unchanged since prior MRI. 2. Spinal surgery since last MRI. If yes, order a MRI with and without contrast. 3. Hx or ongoing cancer treatment. Patient will need spine x-ray (Ap/Lat) for axial neck or back pain if not done previously. Fax No. [facility] [phone] or contact front office agent [phone] Fax No. [facility] [phone] or contact front office agent [phone] Fax No. [facility] [phone] or contact front office agent [phone] Reason for Visit * Reason Onset Date Comments Referral 01/19/2024 Encounter Details Date Type Department Care Team (Late st Contact Info) Description 01/19/2024 Telephone [facility] [address] [place] [address] Quentin Silveira MD [address] [place] [address] Referral Allergies Active Allergy Reactions Criticality Noted Date Comments Cephalexin Monohydrate Other (Please comment) High 07/22/1999 respiratory distress. Cephalosporins 12/28/2009 documented as of this encounter (statuses as of 01/19/2024) Medications Medication Sig Dispensed Refills Start Date [...] twice daily 90 Capsule 3 12/14/2023 Active documented as of this encounter (statuses as of 01/19/2024) Active Problems Problem Noted Date Diagnosed Date [...] as of this encounter (statuses as of 01/19/2024) Resolved Problems Problem Noted Date Diagnosed Date Resolved Date Morbid obesity with body mas s index (BMI) of 40.0 to 44.9 in adult 11/25/2019 11/30/2020 Gouty arthropathy 12/08/2017 05/30/2020 Body mass index (BMI) of 40. 0 to 44.9 in adult 08/24/2017 12/08/2019 Overview: Per Obesity protocol #1 Genetic Sleep Disorder Resea [facility] Other*[id number] 05/28/2012 07/01/2016 Severe obesity with body mas [...] as of this encounter (statuses as of 01/19/2024) Immunizations Name Administration Dates Next Due COVID-19 mRNA, LNP-s, No Pre serve, 2-Dose Series (Conductiv) 10/28/2021,03/06/2021,02/13/2021 H1N1 2009 Influenza, IM 11/29/2009 PPD [...] encounter Miscellaneous Notes * Telephone Encounter - Nathan Mary OSA - 01/19/2024 9:16 AM EST Has the patient been seen for this problem? (Y/N)?: Y If No, an appt needs to be scheduled before a referral will be placed (exception: proceed with referral request if referral request is for a yearly routine appointment with speciality) Patient Name: Raysa Singh Patient Primary care provider: Quentin Silveira MD Does this need to be an insurance referral (Y/N)?: N If Yes, does the insurance referral need to be placed into the [employer] system? Name of preferred specialist: N/a Type of specialist: Pain Management Location of specialist: [facility] Phone #: N/a [facility]ist[facility] Fax #: N/a Reason for visit: Pain in back, legs, and feet Date of visit: Needs referral first documented in this encounter Plan of Treatment Upcoming Encounters Date Type Department Care Team (Late st Contact Info) Description 01/22/2024 10:45 AM EST Cardiac Studies Cardiac Studies, [address] [place] [address] 02/29/2024 1:30 PM EDT Imaging Radiology, [facility] [address] [place] [address] 06/09/2024 1:00 PM EDT Office Visit Neurology [facility] [address] [facility] [address] Johanna Cavazos MD [address] [facility] [place], [place] [address] 12/08/2024 11:00 AM EST Office Visit [facility] [address] [place] [facility] [address] Quentin Silveira MD [address] [place] [address] Scheduled Procedures Name Priority Associated Diagnoses Date/Ti me COLONOSCOPY FLEXIBLE PROXIMA L DIAGNOSTIC Recall Special screening for malignant neoplasms, colon Scheduled Referrals Name Type Priority Associated Diagnoses Orde r Schedule PAIN MEDICINE REFERRAL OP Referral Within 30 days (routine) Spinal stenosis of lumbar region without neurogenic claudication Ordered: 01/19/2024 Health Maintenance Due Date Last Done Comments [...] this encounter Medical Devices Implanted Type Area Bundle Tier Device Identifier Shelf Expiration Date Model / Serial / Lot Cement Bone R 1112-140-01 - [id number] Implanted:Qty: 1 on 01/09/2010 [place] [facility] Left: Knee VIOLET INC 04/23/2014 00-1112-14 0- / [id number] Femur Nexgn D Left - [id number] Implanted:Qty: 1 on 01/09/2010 at [place] [facility] Left: Knee [employer]LET [employer] 10/23/2019-5996-01 4-51 / / [id number] Patella Poly Nexgen - [id number] Implanted:Qty: 1 on 01/09/2010 at [place] [facility] Left: Knee [employer]LET [employer] 11/23/2017-5972-06 5-32 / / [id number] Plate Tibial Flu - [id number] Implanted:Qty: 1 on 01/09/2010 at [place] [facility] Left: Knee [employer]LET [employer] 11/23/20195996-03 8- / [id number] Surface Flex Cd 10 - [id number] Implanted:Qty: 1 on 01/09/2010 at [place] [facility] Left: Knee [employer]LET [employer] 10/23/2017-5964-03 0-10 / / [id number] Femur Option Lps Er - [id number] Implanted:Qty: 1 on 08/17/2012 at [place] [facility] Right: Knee VIOLET INC 06/22/2022-5764-01 5-52 / / [id number] Block Tioga Syls3 10 - [id number] Implanted:Qty: 1 on 08/17/2012 at [place] [facility] Right: Knee VIOLET INC 02/20/2017 00-5886-06 3-10 / / [id number] Cement Antibiotic Bone - [id number] Implanted:Qty: 1 on 08/17/2012 at [place] [facility] Right: Knee TYESHA : ORTHOPAEDICS 03/22/2014 6197-9-010 / / [id number] Breast Implant 354-2514 Saline - [id number] Implanted:Qty: 1 on 02/03/2014 at [place] [facility] Left: Breast MENTOR GOPI 12/23/2016 354-2514 / [id number] / [id number] Graft Allomax 1.0 6x16 - [id number] Implanted:Qty: 1 on 02/03/2014 at [place] [facility] Left: Breast CR BARD : DAVOL 11/22/2018 [id number] / [id number] / [id number] Graft Allomax 1.0 6x16 - [id number] Implanted:Qty: 1 on 02/03/2014 at [place] [facility] Right: Breast CR BARD : DAVOL 11/22/2018 [id number] / [id number] / [id number] Breast Implant 354-2514 Saline - [id number] Implanted:Qty: 1 on 02/03/2014 at [facility] Right: Breast MENTOR GOPI 01/20/2017 354-2514 / [id number] / [id number] Implant Brst Krys Hp 350-6504bc - [id number] Implanted:Qty: 1 on 08/08/2014 at [place] [facility] Left: Breast MENTOR GOPI 02/20/2017 350-6504BC / [id number] / [id number] Implant Brst Krys Hp 350-6504bc - [id number] Implanted:Qty: 1 on 08/08/2014 at [place] [facility] Right: Breast MENTOR GOPI 10/22/2016 350-6504BC / [id number] / [id number] Cement Antibiotic Bone - [id number] Implanted:Qty: 4 on 09/07/2018 by Lauro Pabon MD at [place] [facility] Left: Knee TYESHA : ORTHOPAEDICS 04/22/2019 6197-9-010 / / [id number] Restrictors Med Cmnt N271-3166 - [id number] Implanted:Qty: 1 on 09/07/2018 by Lauro Pabon MD at [place] [facility] Left: Knee TYESHA : INSTRUMENTS 11/06/2022 J046-0442 / / [id number] Restrictors Med Cmnt J726-9869 - [id number] Implanted:Qty: 1 on 09/07/2018 by Lauro Pabon MD at [place] [facility] Left: Knee TYESHA : INSTRUMENTS 02/11/2023 W314-0541 / / [id number] Knee Baseplate Tri Tib Sz 2 - [id number] Implanted:Qty: 1 on 09/07/2018 by Lauro Pabon MD at [place] [facility] Left: Knee TYESHA : ORTHOPAEDICS 10/21/2022 5521-B-200 / / [id number] Tri Cemented Stem 12x50 - [id number] Implanted:Qty: 1 on 09/07/2018 by Lauro Pabon MD at [place] [facility] Left: Knee TYESHA : ORTHOPAEDICS 06/22/2023 5560-S-112 / / [id number] Triathlon Tritanium Tibial Symmetric Cone Augment Size A Implanted:Qty: 1 on 09/07/2018 by Lauro Pabon MD at [place] [facility] Left: Knee TYESHA : ORTHOPAEDICS 07/21/2022 5549-A-110 / / [id number] Knee Triathlon Stab Sz3 L - [id number] Implanted:Qty: 1 on 09/07/2018 by Lauro Pabon MD at [place] [facility] Left: Knee TYESHA : ORTHOPAEDICS 02/02/2023 5512-F-301 / / [id number] Triathlon Stem Stone Mason 25 - [id number] Implanted:Qty: 1 on 09/07/2018 by Lauro Pabon MD at [place] [facility] Left: Knee TYESHA : ORTHOPAEDICS 01/28/2023 5571-S-025 / / [id number] Tri Cemented Stem 12x50 - [id number] Implanted:Qty: 1 on 09/07/2018 by Lauro Pabon MD at [place] [facility] Left: Knee TYESHA : ORTHOPAEDICS 06/18/2023 5560-S-112 / / [id number] Knee Femoral Dist Aug 10 3 L - [id number] Implanted:Qty: 2 on 09/07/2018 by Laruo Pabon MD at [place] [facility] Left: Knee TYESHA : ORTHOPAEDICS 07/10/2021 5541-A-301 / / [id number] Knee Tri Post Augment Sz3 10 - [id number] Implanted:Qty: 1 on 09/07/2018 by Lauro Pabon MD at [place] [facility] Left: Knee TYESHA : ORTHOPAEDICS 01/29/2023 5544-A-300 / / [id number] Knee Tri Post Augment Sz3 5 - [id number] Implanted:Qty: 1 on 09/07/2018 by Lauro Pabon MD at [place] [facility] Left: Knee TYESHA : ORTHOPAEDICS 12/11/2022 5543-A-300 / / [id number] Knee Tib Insr Plus X3 22 - [id number] Implanted:Qty: 1 on 09/07/2018 by Lauro Pabon MD at [place] [facility] Left: Knee TYESHA : ORTHOPAEDICS 05/22/2019 5537-G-222 / / [id number] documented as of this encounter Visit Diagnoses Diagnosis Spinal stenosis of lumbar region without neurogenic claudication- Primary Spinal stenosis, lumbar region, without neurogenic claudication documented in this encounter Advance Directives Documents on File Type Date Recorded Patient Spine Nurse Expl anation Advance Directives and Living Will [...] the patient have Health Care Power of Parole Board Member? No Code Status History Code Status Date [...] Directives occurred with: Not Discussed Care Teams Want Ad Supervisor Relationship Specialty Start Date End Date Quentin Silveira MD [address] [facility] [place] [address] PCP - General 01/03/02 documented as of this encounter
--- NOTE | 2024-02-25 13:02 | Cardiology Consultation ---
Date of Consultation February 25, 2024 Assessment & Plan (1) Hypertensive urgency: (2) Acute on chronic diastolic heart failure with preserved ejection fraction: (3) Elevated troponin: Plan Patient admitted with worsening SOB, uncontrolled HTN and associated pulm vascular congestion on chest xray. Symptoms consistent with acute decompensated HFpEF in association with hypertensive urgency. Minimally elevated troponin consistent with demand ischemia in the setting of hypertension and CHF. No acute ischemic EKG changes. No chest pain to suggest ACS. Echocardiogram is pending. Patient has already received 2 doses of IV Lasix since admission - 20 mg and 40 mg. Likely repeat dose later this afternoon. Monitor I+O's. Titus cath placed. Fluid restriction of 1500 ml Monitor renal function and electrolytes Potassium goal is 4-5. Supplement as needed. will likely need several days of IV Lasix. Hold home dose HCTZ for now. May benefit from transitioning to loop diuretic therapy. Lisinopril increased from 10 to 20 mg on admission for hypertensive urgency. BP improving with titration of lisinopril and diuretic therapy. Hold HCTZ now given need for IV diuretics. Nitro ointment discontinued. Continue Statin. Add ASA 81 mg daily given demand ischemia. Once volume status and BP improves, may benefit from ischemic work up as outpatient for further evaluation of potential underlying ischemic heart disease. CPAP recommended will continue to follow during admission. Case discussed with Dr. Hanks I spent a total of 65 minutes on the date of service in preparation, delivery, and documentation of the care provided to this patient, excluding any time spent in the performance of separately billed services. Vale Adrian PA-C Department of Cardiology, [facility] This chart was completed in part utilizing Speech Voice Recognition Software. Grammatical errors, random word insertions, pronoun errors, and incomplete sentences are an occasional consequence of this system due to software limitations, ambient noise, and hardware issues. Any formal questions or concerns about the content, text, or information contained within the body of this dictation should be directly addressed to the provider for clarification. Supervising Physician Co-Signing Physician Notes Attending attestation: Case reviewed with the advanced practitioner. I have personally performed a history and physical examination on the patient. I have reviewed the advanced practitioner's documentation on the date of service referenced in note, and I agree with, and take responsibility for the plan of care. Subjective: Patient comfortable during my assessment. Notes that she has been feeling well without any shortness of breath or chest discomfort. Recent outpatient echocardiogram and cardiology assessment performed due to concerns of murmur. Patient states that last evening she had abrupt onset of a pressure sensation in her head with associated shortness of breath. It was most notable when she tried to climb 15 steps to go to bed. She attempted to apply her home CPAP to help her breathe. Ultimately she presented to the emergency department. Blood pressure on presentation 02/25/2024 at 6:59 AM was 232/126. Blood pressure was rechecked personally after she had received a dose of furosemide and her home blood pressure medications with reading of 168/91. In the meantime, repeat blood pressure had been 146/82, and another measurement included a systolic blood pressure in the 90s, without symptoms of low blood pressure at that time. Patient states she is feeling better from a shortness of breath standpoint and headache standpoint. Exam: Pulmonary: Mildly reduced breath sounds bilaterally at the bases Cardiovascular 1/6 systolic murmur heard best at right sternal border Data: As noted above Impression/ Plan: Acute decompensation of diastolic heart failure (heart failure with preserved ejection fraction) in the setting of hypertensive urgency. Blood pressure at the time of most recent outpatient cardiology consultation has been 154/74. A repeat echocardiogram has been performed in the emergency department and will be reviewed. Presentation not suggestive of an acute coronary syndrome at present, and mild troponin elevation likely due to myocardial strain in the setting of hypertension and left ventricular hypertrophy. Continue prior to hospital cardiac medications with noted addition of furosemide for now. Discontinue topical nitroglycerin. Agree with Titus catheter. I spent a total of 25 minutes coordinating, documenting, and providing care for this patient excluding time spent in the performance of separately billed services or time spent by another provider. Jeremiah Hanks DO History of Present Illness Reason for Consultation: CHF; Elevated troponin Requesting Physician: NADINE Gordon Attending Physician: Dr. Hanks History of Present Illness Patient is a 73 year old female who was admitted to [facility] with complaints of worsening SOB, starting last evening. History includes: 1. Hypertension 2. Dyslipidemia 3. DUC with CPAP use Patient recent saw [facility] cardiology as outpatient. she had a recent echo, done at an alternative clinic with portable echo machine. The study was a technically limited study due to lack of Definity and on a portable machine. There was questionable mitral valve calcification noted. She saw Dr. Tobar in clinic and repeat study recommended. Echo was initially done for evaluation of cardiac murmur. She otherwise has been in normal state of health until last evening. she was walking up a flight of steps and became acutely short of breath. She went to bed and tried to sleep intermittently for a few hours. This morning patient reported ongoing SOB and called a friend to bring her to the hospital. She does admit to gaining approx 15 lbs over the last few weeks. she attributed this to injuring her back and not being as mobile. She tries to limit her salt intake, but did have ham and easter dinner that likely contained alot of sodium. Upon arrival to the ER, she was found to be hypoxic in the 80's, hypertensive with BP > 200/100. Chest xray demonstrating pulm vascular congestion with small b/l pleural effusions. She was started on IV lasix. Nitro oint placed for HTN. Lisinopril dose increased to 20 mg. Troponin mildly elevated on arrival at 84 - 160 - 171 per serial tracings. No chest pain or acute EKG changes to suggest acute ACS. Since admission, BP has trended down. Borderline low right now. Good diuresis since admission. Mild improvement in her SOB at rest. She continues to deny chest pain. At time of consult, patient resting in bed comfortably. Still with mild conversational dyspnea. Just had echo. No chest pain. No dizziness. She has mild headache with nitro paste. No significant LE edema. Allergies Allergy/AdvReac Type Severity Reaction Status Date / Time Cephalosporins Allergy Unknown Verified 02/25/24 10:17 Home Medications Medication Instructions Recorded Confirmed Type calcium carbonate 600 mg-vitamin 0 tab PO DAILY ##0 07/10/09 02/25/24 History D3 20 mcg (800 unit) chewable tablet (Caltrate 600 plus D) multivitamin 0 tab PO DAILY ##0 07/10/09 02/25/24 History gabapentin 300 mg capsule 300 mg PO BID 02/25/24 02/25/24 History hydrochlorothiazide 25 mg tablet 25 mg PO DAILY 02/25/24 02/25/24 History lisinopril 10 mg tablet 10 mg PO DAILY 02/25/24 02/25/24 History simvastatin 20 mg tablet 20 mg PO DAILY 02/25/24 02/25/24 History Patient History Medical History (Updated 02/25/24 @ 13:26 by Vale Adrian PA-C) Hypertensive emergency Lumbar radiculopathy, chronic Shortness of breath Hypertensive urgency Hyperlipidemia Hypertension Surgical History History of arthroscopy of both knees Family History (Updated 02/25/24 @ 10:43 by NADINE Fairbanks) Other Depression Dyslipidemia Hypertension Social History (Updated 02/25/24 @ 13:54 by NADINE Fairbanks) Smoking Status: Never smoker Hx Alcohol Use: No Hx Substance Use: No marital status: current occupational status: retired Feels Safe at Home: Yes Review of Systems Review of Systems: All systems reviewed & are unremarkable except as noted in HPI & below Physical Exam Constitutional: WD/WN, vitals as above no acute distress Neck: normal visual inspection Respiratory: + not able to speak in complete sentence (Mild conversational dyspnea) Auscultation: + diminished lung sounds (bases b/l) and + rales (faint) Cardiovascular: Rate/Rhythm: regular rate and regular rhythm Heart Sounds: + murmur (II/ systolic murmur) Vessels: + JVD (in the upright position) Extremities: no edema Gastrointestinal (Abdomen): Inspection/Auscultation: abdomen normal to inspe ction Percussion/Palpation: abdomen soft Skin: no rashes, warm and dry Neurologic: PERRL, EOMI, accommodation nl, no face palsy, no dysarthria Results & Data Vital Signs (Past 12 Hours) Vital Signs Temp Pulse Resp BP Pulse Ox O2 Del Method O2 Flow Rate 02/25/24 12:30 74 24 146/82 H 97 BiPAP 02/25/24 12:15 76 30 H 168/91 H 97 02/25/24 11:30 73 24 158/84 H 94 BiPAP 02/25/24 10:00 81 20 97 2 02/25/24 10:00 84 19 96 BiPAP 4 02/25/24 08:54 87 L Room Air 02/25/24 08:45 80 27 H 95 2 02/25/24 08:11 79 02/25/24 06:59 37.5 C 94 H 22 232/126 H 87 L Room Air Laboratory Results Cardiac Enzymes 02/25/24 02/25/24 02/25/24 Range/Units 07:12 09:35 11:47 AST 27 (13-39) U/L Troponin I High Sens 84.4 H* 160.2 H* D 171.2 H* (0-14) pg/ml B-Natriuretic Peptide 410 H (0-100) pg/ml Coagulation 02/25/24 Range/Units 07:12 PT 10.6 (9.0-12.0) Seconds APTT 26 (21-31) Seconds B-Natriuretic Peptide 410 H (0-100) pg/ml CBC 02/25/24 Range/Units 07:12 WBC 8.97 (4.8-10.8) K/ul RBC 3.61 L (4.20-5.40) M/uL Hgb 11.0 L (12.0-16.0) g/dl Hct 34.9 L (37.0-47.0) % Plt Count 235 (130-400) K/uL Neut # (Auto) 7.40 H (1.40-6.50) K/uL Lymph # (Auto) 0.95 L (1.20-3.40) K/uL Cotton # (Auto) 0.52 (0.11-0.59) K/uL Eos # (Auto) 0.01 (0.00-0.50) K/uL Baso # (Auto) 0.06 (0.00-0.20) K/uL Comprehensive Metabolic Panel 02/25/24 Range/Units 07:12 Sodium 140 (136-145) mmol/L Potassium 4.0 (3.5-5.1) mmol/L Chloride 103 (98-107) mmol/L Carbon Dioxide 28 (21-32) mmol/L BUN 15 (6-23) mg/dl Creatinine 0.88 (0.6-1.2) mg/dl Glucose 126 H (70-99(Fasting)) mg/dl Calcium 9.9 (8.6-10.3) mg/dl AST 27 (13-39) U/L ALT 16 (7-52) U/L Alkaline Phosphatase 62 (34-104) U/L Total Protein 8.2 (6.0-8.3) gm/dl Albumin 4.7 (3.4-5.0) gm/dl Intake and Output 02/24/24 02/25/24 02/25/24 22:59 06:59 14:59 Other: Weight 76.7 kg Weight Measurement Method Chair Scale Diagnostic Findings Telemetry reviewed: NSR in the 60-70's. No arrhythmias. Echocardiogram completed 02/25/24 - pending EKG reviewed from admission: NSR with PAC's No acute ischemic changes. Chest xray reviewed: IMPRESSION: 1. Cardiomegaly with pulmonary vascular congestion. 2. Bilateral airspace opacities likely represent pulmonary edema. Correlate clinically for evidence of a superimposed infectious/inflammatory pneumonitis. Radiographic follow-up to resolution is recommended. Echocardiogram completed January 2024 at [facility] facility: Interpretation Summary The study is of technically limited quality. The LV wall thickness is mildly increased (concentric). The left ventricular wall motion is normal by limited analysis. All left ventricular segments are not visualized. The qualitative LV ejection fraction is 55-59% (normal). The left atrium is severely enlarged. The left ventricular diastolic function is moderately abnormal (grade II). There is focal calcification of the sub mitral valve apparatus. There is no evidence of pulmonary hypertension. Consider repeat study at a fixed site with images on the [employer] ultrasound cart to improve visualization. Medications Administered Current Inpatient Medications Acetaminophen (Acetaminophen 325 Mg Tab) 650 mg PO Q4H PRN PRN Reason: Pain or Fever Stop: 03/26/24 09:39 Last Admin: 02/25/24 12:01 Dose: 650 mg Al Hydrox/Mg Hydrox/Simethicone (Aluminum/Magnesium Susp 30 Ml Udc) 15 ml PO Q4H PRN PRN Reason: Dyspepsia Stop: 03/26/24 09:39 Enoxaparin Sodium (Enoxaparin Inj 40 Mg/0.4 Ml Syr) 40 mg SQ QAM [facility] Stop: 03/26/24 10:59 Last Admin: 02/25/24 12:10 Dose: 40 mg Gabapentin (Gabapentin 300 Mg Cap) 300 mg PO BID [facility] Stop: 03/26/24 10:44 Last Admin: 02/25/24 11:58 Dose: 300 mg Hydrochlorothiazide (Hydrochlorothiazide 25 Mg Tab) 25 mg PO DAILY [facility] Stop: 03/26/24 10:44 Last Admin: 02/25/24 11:58 Dose: 25 mg Lisinopril (Lisinopril 20 Mg Tab) 20 mg PO BID [facility] Stop: 03/26/24 10:44 Last Admin: 02/25/24 11:57 Dose: 20 mg Magnesium Hydroxide (Magnesium Hydroxide Susp 30 Ml Udc) 30 ml PO Q12H PRN PRN Reason: Constipation Stop: 03/26/24 09:39 Ondansetron HCl (Ondansetron Inj 2 Mg/Ml 2 Ml Vial) 4 mg IV Q6H PRN PRN Reason: Nausea Stop: 03/26/24 09:39 Polyethylene Glycol (Polyethylene (Miralax) 17 Gm Pack) 17 gm PO DAILY PRN PRN Reason: Constipation Stop: 03/26/24 09:39 Simvastatin (Simvastatin 20 Mg Tab) 20 mg PO DAILY JONAS Stop: 03/26/24 10:44 Last Admin: 02/25/24 11:58 Dose: 20 mg
--- OUTSIDE RECORDS SUMMARY | 2024-02-25 13:02 | External Medical Summary | Summary of Care ---
Author Name Unknown Organization [facility] Address [address] [place] [address] Phone [phone] Care Team Providers Care Bark Skinner Name Role Phone Danna Silveira MD Primary Care Provider [phone] Reason for Visit * Reason Comments eRx-Medication Refill Encounter Details Date Type Department Care Team (Late st Contact Info) Description 11/23/2023 Refill [facility] [address] [place] [address] Addi Olivera MD [address] [place] [address] HTN, goal below 140/90 Allergies Active Allergy Reactions Criticality Noted Date Comments Cephalexin Monohydrate Other (Please comment) High 07/22/1999 respiratory distress. Cephalosporins 12/28/2009 documented as of this encounter (statuses as of 11/25/2023) Medications Medication Sig Dispensed Refills Start Date End Date Status CALCIUM + D 600-200 MG-UNIT OR TABS 1 po qd 0 0 04/24/2005 Active MULTIPLE VITAMINS PO TABS 1 tab once a day 0 Ac tive NATURAL SUPPLEMENTIndica tions:takes 2 daily Take by mouth daily. Natural laxatives from [employer] 0 Active Ascorbic Acid 125 MG Oral Tablet ChewableIndicati ons:2 chews a day Take by mouth. 0 Active Gabapentin 300 MG Oral Capsule (Neurontin)Indic ations:Pain in both lower legs Take 1 Capsule [...] Active Triamcinolone Acetonide 0.1 % External Cream (Aristocort)Janeth cations:Irritant contact dermatitis due to plants, except food Apply topically to affected area 2 times a day. To affected area. 80 g 1 05/06/2023 Active Additional Information Patient not taking.Reported on 06/08/2023 Lisinopril 10 MG Oral Tablet (Prinivil)Indica tions:HTN, goal below 140/90 TAKE ONE TABLET BY MOUTH IN THE MORNING 90 Tablet 0 10/26/2023 Active Simvastatin 20 MG Oral Tablet (Zocor) TAKE 1 TABLET BY MOUTH AT BEDTIME 90 Tablet 0 11/25/2023 Active hydroCHLOROthiaz monica 25 MG Oral Tablet (Hydrodiuril)Ind ications:HTN, goal below 140/90 TAKE ONE TABLET BY MOUTH IN THE MORNING 90 Tablet 0 11/25/2023 Active Simvastatin 20 MG Oral Tablet (Zocor) Take 1 Tablet (20 mg) by mouth at bedtime. 90 Tablet 3 11/04/2022 4 Discontinued hydroCHLOROthiaz monica 25 MG Oral Tablet (Hydrodiuril)Ind ications:HTN, goal below 140/90 Take 1 Tablet (25 mg) by mouth in the morning. 90 Tablet 3 11/04/2022 4 Discontinued documented as of this encounter (statuses as of 11/25/2023) Active Problems Problem Noted Date Diagnosed Date [...] as of this encounter (statuses as of 11/25/2023) Resolved Problems Problem Noted Date Diagnosed Date Resolved Date Morbid obesity with body mas s index (BMI) of 40.0 to 44.9 in adult 11/25/2019 11/30/2020 Gouty arthropathy 12/08/2017 05/30/2020 Body mass index (BMI) of 40. 0 to 44.9 in adult 08/24/2017 12/08/2019 Overview: Per Obesity protocol #1 Genetic Sleep Disorder Resea [facility] Other*[id number] 05/28/2012 07/01/2016 Severe obesity with body mas [...] as of this encounter (statuses as of 11/25/2023) Immunizations Name Administration Dates Next Due COVID-19 [...] encounter Miscellaneous Notes * Telephone Encounter - Nilton Vicente [facility] - 11/25/2023 8:27 AM ESTSigned Prescriptions: Disp Refills Simvastatin 20 MG Oral Tablet (Zocor) 90 Tab*0 Sig: TAKE 1 TABLET BY MOUTH AT BEDTIMEAuthorizing Provider: DANNA SILVEIRA User: NILTON VICENTE hydroCHLOROthiazide 25 MG Oral Tablet (Hyd*90 Tab*0 Sig: TAKE ONE TABLET BY MOUTH IN THE MORNINGAuthorizing Provider: DANNA SILVEIRA User: NILTON VICENTE * Telephone Encounter - Nilton Vicente RPh - 11/25/2023 8:24 AM EST Labs ordered yesterday. Refill sent to Diony Mejia, PharmD Clinical Pharmacist [facility] ([facility]) (Formerly Telepharmacy) [phone] 11/25/2023 8:25 AM documented in this encounter Plan of Treatment Upcoming Encounters Date Type Department Care Team (Late st Contact Info) Description 12/07/2023 12:20 PM EST Office Visit [facility] [address] [place] [phone] Danna Silveira MD [address] [place] [address] 06/09/2024 1:00 PM EDT Office Visit Neurology [facility] [address] [place] [address] Johanna Cavazos MD [address] [place] [address] Scheduled Procedures Name Priority Associated Diagnoses Date/Ti [...] this encounter Medical Devices Implanted Type Area Nuclear Process Engineer Device Identifier Shelf Expiration Date Model / Serial / Lot Surface Flex Cd 10 - [id number] Implanted:Qty: 1 on 01/09/2010 [place] [facility] [place]: Knee VIOLET INC 10/23/2017 00-5964-03 0-10 / / [id number] Cement Antibiotic Bone - [id number] Implanted:Qty: 1 on 08/17/2012 [place] [facility] [place]: Knee TYESHA : ORTHOPAEDICS 03/22/2014 6197-9-010 / / [id number] Graft Allomax 1.0 6x16 - [id number] Implanted:Qty: 1 on 02/03/2014 [place] [facility] Right: Breast CR BARD : DAVOL 11/22/2018 [id number] / [id number] / [id number] Implant Brst Krys Hp 350-6504bc - [id number] Implanted:Qty: 1 on 08/08/2014 [place] [facility] Right: Breast MENTOR GOPI 10/22/2016 350-6504BC / [id number] 2 Knee Tib Insr Plus X3 22 - [id number] Implanted:Qty: 1 on 09/07/2018 by Lauro Pabon MD [place] [facility] [place]: Knee TYESHA : ORTHOPAEDICS 05/22/2019 5537-G-222 / / [id number] documented as of this encounter Visit Diagnoses Diagnosis HTN, goal below 140/90 Unspecified essential hypertension documented in this encounter Advance Directives Documents on File Type Date Recorded Patient Geriatric Psychiatrist Expl anation Advance Directives and Living Will [...] the patient have Health Care Power of Dye Range Tender? No Code Status History Code Status [...] Directives occurred with: Not Discussed Care Teams Bark Skinner Relationship Specialty Start Date End Date Danna Silveira MD [address] [place] [address] PCP - General 01/03/02 documented as of this encounter
--- OUTSIDE RECORDS SUMMARY | 2024-02-25 13:02 | External Medical Summary | Summary of Care ---
Author Name Unknown Organization [facility] Address [address] [place] [address] Phone [phone] Care Team Providers Care On Site Services Specialist Name Role Phone Danna Silveira MD Primary Care Provider [phone] Reason for Visit * Reason Comments eRx-Medication Refill Encounter Details Date Type Department Care Team (Late st Contact Info) Description 10/25/2023 Refill [facility] [address] [place] [address] Addi Olivera MD [address] [place] [address] HTN, goal below 140/90 Allergies Active Allergy Reactions Criticality Noted Date Comments Cephalexin Monohydrate Other (Please comment) High 07/22/1999 respiratory distress. Cephalosporins 12/28/2009 documented as of this encounter (statuses as of 10/26/2023) Medications Medication Sig Dispensed Refills Start Date [...] a day Take by mouth. 0 Active Simvastatin 20 MG Oral Tablet (Zocor) Take 1 Tablet (20 mg) by mouth at bedtime. 90 Tablet 3 11/04/2022 Active hydroCHLOROthiaz monica 25 MG Oral Tablet (Hydrodiuril)Ind ications:HTN, goal below 140/90 Take 1 Tablet (25 mg) by mouth in the morning. 90 Tablet 3 11/04/2022 Active Gabapentin 300 MG Oral Capsule (Neurontin)Indic [...] THE MORNING 90 Tablet 0 10/26/2023 Active Lisinopril 10 MG Oral Tablet (Prinivil)Indica tions:HTN, goal below 140/90 Take 1 Tablet (10 mg) by mouth in the morning. 90 Tablet 3 11/04/2022 3 Discontinued documented as of this encounter (statuses as of 10/26/2023) Active Problems Problem Noted Date Diagnosed Date [...] as of this encounter (statuses as of 10/26/2023) Resolved Problems Problem Noted Date Diagnosed Date Resolved Date Morbid obesity with body mas s index (BMI) of 40.0 to 44.9 in adult 11/25/2019 11/30/2020 Gouty arthropathy 12/08/2017 05/30/2020 Body mass index (BMI) of 40. 0 to 44.9 in adult 08/24/2017 12/08/2019 Overview: Per Obesity protocol #1 Genetic Sleep Disorder Resea [facility] Other*[id number] 05/28/2012 07/01/2016 Severe obesity with body mas [...] as of this encounter (statuses as of 10/26/2023) Immunizations Name Administration Dates Next Due COVID-19 mRNA, LNP-s, No Pre serve, 2-Dose Series (Pfizer) 10/28/2021,03/06/2021,02/13/2021 H1N1 2009 Influenza, IM 11/29/2009 PPD 10/24/2020,10/15/2020 Pneumococcal Conjugate Vacc, 13 Valent (Prevnar) 10/09/2015 Pneumococcal Polysaccharide PPV23 (Pneumovax) 05/04/2017,02/05/2008 SEASONAL INFLUENZA, PF, 6 M & Above, IM , (FLULAVAL or FLUZONE) 08/03/2019,08/09/2018 Season Influenza, Quad, PF, Adjuvanted, 65+ Yrs, IM (FLUAD) 08/29/2020 Seasonal Influenza, Quadriva lent Hd (Fluzone Hd) [...] Miscellaneous Notes * Telephone Encounter - Nilton Gill RPh - 10/26/2023 10:23 AM EST 1 refill authorized until upcoming f/u appt. Next OV: 12/07/2023 ThanksNilton Pharm.D. Clinical Pharmacist [facility] ([facility])(Formerly Telepharmacy) [phone] 10/26/2023, 10:23 AM * Telephone Encounter - Nilton Gill RPh - 10/26/2023 10:23 AM ESTSigned Prescriptions: Disp Refills Lisinopril 10 MG Oral Tablet (Prinivil) 90 Tab*0 Sig: TAKE ONE TABLET BY MOUTH IN THE MORNINGAuthorizing Provider: DANNA SILVEIRA User: NILTON GILL-- documented in this encounter Plan of Treatment Upcoming Encounters Date Type Department Care Team (Late st Contact Info) Description 12/07/2023 12:20 PM EST Office [facility] [address] [place] [phone] Danna Silveira MD [address] [place] [address] 06/09/2024 1:00 PM EDT Office Visit Neurology [facility] [address] [place] [address] Johanna Cavazos MD [address] [place] [address] Scheduled Procedures Name Priority Associated Diagnoses Date/Ti [...] this encounter Medical Devices Implanted Type Area Masonry Teacher Device Identifier Shelf Expiration Date Model / Serial / Lot Surface Flex Cd 10 - [id number] Implanted:Qty: 1 on 01/09/2010 at OR [facility] Left: Knee VIOLET INC 10/23/2017 00-5964-03 0-10 / / [id number] Cement Antibiotic Bone - [id number] Implanted:Qty: 1 on 08/17/2012 at OR [facility] Right: Knee TYESHA : ORTHOPAEDICS 03/22/2014 6197-9-010 / / [id number] Graft Allomax 1.0 6x16 - [id number] Implanted:Qty: 1 on 02/03/2014 at OR [facility] Right: Breast CR BARD : DAVOL 11/22/2018 [id number] / [id number] / [id number] Implant Brst Krys Hp 350-6504bc - [id number] Implanted:Qty: 1 on 08/08/2014 at OR [facility] Right: Breast MENTOR GOPI 10/22/2016 350-6504BC / [id number] Knee Tib Insr Plus X3 22 - [id number] Implanted:Qty: 1 on 09/07/2018 by Lauro Pabon MD at OR [facility] Left: Knee TYESHA : ORTHOPAEDICS 05/22/2019 5537-G-222 / / [id number] documented as of this encounter Visit Diagnoses Diagnosis HTN, goal below 140/90 Unspecified essential hypertension documented in this encounter Advance Directives Documents on File Type Date Recorded Patient Dye Jig Operator Expl anation Advance Directives and Living [...] the patient have Health Care Power of Story Writer? No Code Status History Code Status Date [...] Directives occurred with: Not Discussed Care Teams On Site Services Specialist Relationship Specialty Start Date End Date Danna Silveira MD [address] [place] [address] PCP - General 01/03/02 documented as of this encounter
--- OUTSIDE RECORDS SUMMARY | 2024-02-25 13:02 | External Medical Summary | Summary of Care ---
Author Name Unknown Organization [facility] Address [address] [place] [address] Phone [phone] Care Team Providers Care Chief Ultrasound Technologist Name Role Phone Quentin Silveira MD Primary Care Provider [phone] Reason for Visit * Reason Comments eRx-Medication Refill Encounter Details Date Type Department Care Team (Late st Contact Info) Description 11/23/2023 Refill [facility] [address] [place] [address] Quentin Silveira MD [address] [place] [address] HTN, goal below 140/90 Allergies [...] Obesity protocol #1 Genetic Sleep Disorder [facility] Other*[id number] 05/28/2012 07/01/2016 Severe obesity with body mas [...] Notes * Telephone Encounter - Nilton Vicente RPh - 11/25/2023 8:23 AM ESTRefused Prescriptions: Disp Refills Lisinopril 10 MG Oral Tablet (Prinivil) 90 Tab*0 Sig: TAKE ONE TABLET BY MOUTH IN THE MORNINGRefused By: Abdoulaye VICENTE for Refusal: Too soon documented in this encounter Plan of Treatment Upcoming Encounters Date Type Department Care Team (Late st Contact Info) Description 12/07/2023 12:20 PM EST Office Visit [facility] [address] [facility] [place] [address] Quentin Silveira [facility] [address] [facility] [place] [address] 06/09/2024 1:00 PM EDT Office Visit Neurology [facility] [place] [address] [facility] [place] [address] Johanna Cavazos MD [address] [facility] [place] [address] Scheduled Procedures Name Priority Associated Diagnoses Date/Ti [...] this encounter Medical Devices Implanted Type Area Director Of Direct Marketing Device Identifier Shelf Expiration Date Model / Serial / Lot Surface Flex Cd 10 - [id number] Implanted:Qty: 1 on 01/09/[address] [facility] Left: Knee [employer] 10/23/2017 [id number] / / [id number] Cement Antibiotic Bone - [id number] Implanted:Qty: 1 on 08/17/2012 at [facility] Right: Knee TYESHA : ORTHOPA[employer] 03/22/2014 [id number] / / [id number] Graft Allomax 1.0 6x16 - [id number] Implanted:Qty: 1 on 02/03/[address] [facility] Right: Breast CR BARD : DAVOL 11/22/2018 [id number] / [id number] / [id number] Implant Brst Krys Hp [id number] - [id number] Implanted:Qty: 1 on 08/08/[address] [facility] Right: Breast [employer] 10/22/2016 [id number] / [id number] / [id number] Knee Tib Insr Plus X3 22 - [id number] Implanted:Qty: 1 on 09/07/2018 by Lauro Pabon MD at OR [facility] Left: Knee TYESHA : ORTHOPAEDICS 05/22/2019 [id number] / / [id number] documented as of this encounter Visit Diagnoses Diagnosis HTN, goal below 140/90 Unspecified essential hypertension documented in this encounter Advance Directives Documents on File Type Date Recorded Patient Hand Quilter Expl anation Advance Directives and Living Will [...] the patient have Health Care Power of Material Carrier? No Code Status History Code Status Date [...] Directives occurred with: Not Discussed Care Teams Chief Ultrasound Technologist Relationship Specialty Start Date End Date Quentin Silveira MD [address] [place] [address] PCP - General 01/03/02 documented as of this encounter
[2024-02-25] MEDS: ASPIRIN 81 MG ECTAB PO SCH (15:10)
[2024-02-26 05:38] LABS: Hematocrit (blood only) 32.8 % (37.0-47.0); Hemoglobin 10.7 g/dl (12.0-16.0); Mean Corpuscular Hemoglobin 31.3 pg (25.0-34.0); Mean Corpuscular Hgb Conc 32.6 g/dL (32.0-36.0); Mean Corpuscular Volume 95.9 fL (80.0-100.0); Platelet Count 212 K/uL (130-400); RDW Coefficient of Variation 13.6 % (11.5-14.5); RDW Standard Deviation 48.6 fL (36.4-46.3); Red Blood Count 3.42 M/uL (4.20-5.40); White Blood Count 4.69 K/ul (4.8-10.8)
[2024-02-26 06:08] LABS: Albumin Globulin Ratio 1.3 (0.9-2); Albumin Level 4.1 gm/dl (3.4-5.0); BUN Creatinine Ratio 18.6 (10-20); Bilirubin,Total 0.6 mg/dl (0.2-1.0); Calcium 9.4 mg/dl (8.6-10.3); Creatinine Clr Calc Pharmacy 39.8 ml/min; Est GFR (African American) 63.2 ml/min; Est GFR (Non-African American) 54.5 ml/min; Globulin 3.2 gm/dl (2.5-4.0); Potassium 3.9 mmol/L (3.5-5.1); Total Protein 7.3 gm/dl (6.0-8.3)
[2024-02-26] MEDS: FUROSEMIDE 40 MG/4 ML VIAL IV SCH (08:41)
[2024-02-26] MEDS: SPIRONOLACTONE 12.5 MG TAB PO SCH (11:49)
--- NOTE | 2024-02-26 12:26 | Cardiology Progress Note ---
Date of Service February 26, 2024 Assessment & Plan (1) Hypertensive urgency: (2) Acute on chronic diastolic heart failure with preserved ejection fraction: (3) Elevated troponin: Plan Patient admitted with worsening SOB, uncontrolled HTN and associated pulm vascular congestion on chest xray. Symptoms consistent with acute decompensated HFpEF in association with hypertensive urgency. Minimally elevated troponin consistent with demand ischemia in the setting of hypertension and CHF. No acute ischemic EKG changes. No chest pain to suggest ACS. Echocardiogram is pending. Patient has already received 2 doses of IV Lasix since admission - 20 mg and 40 mg. Likely repeat dose later this afternoon. Monitor I+O's. Titus cath placed. Fluid restriction of 1500 ml Monitor renal function and electrolytes Potassium goal is 4-5. Supplement as needed. will likely need several days of IV Lasix. Hold home dose HCTZ for now. May benefit from transitioning to loop diuretic therapy. Lisinopril increased from 10 to 20 mg on admission for hypertensive urgency. BP improving with titration of lisinopril and diuretic therapy. Hold HCTZ now given need for IV diuretics. Nitro ointment discontinued. Continue Statin. Add ASA 81 mg daily given demand ischemia. Once volume status and BP improves, may benefit from ischemic work up as outpatient for further evaluation of potential underlying ischemic heart disease. CPAP recommended 02/26/24 2 L diuresed over the last 24 hours. Daily weight with standing scale recommended Monitor I+O's. Continue furosemide 40 mg IV BID today Add spironolactone 12.5 mg daily Continue higher dose lisinopril 20 mg BID Echo with hyperdynamic LVEF. No wall motion abnormalities. Will likely need loop diuretic on discharge rather than home HCTZ. Will continue to follow. Case discussed with Dr. Hanks I spent a total of 30 minutes on the date of service in preparation, delivery, and documentation of the care provided to this patient, excluding any time spent in the performance of separately billed services. Vale Adrian PA-C Department of Cardiology, [facility] This chart was completed in part utilizing Speech Voice Recognition Software. Grammatical errors, random word insertions, pronoun errors, and incomplete sente nces are an occasional consequence of this system due to software limitations, ambient noise, and hardware issues. Any formal questions or concerns about the content, text, or information contained within the body of this dictation should be directly addressed to the provider for clarification. Admission and Anticipated Discharge Date Admission Date: February 25, 2024 Supervising Physician Co-Signing Physician Notes Attending attestation: Case reviewed with the advanced practitioner. I have personally performed a history and physical examination on the patient. I have reviewed the advanced practitioner's documentation on the date of service referenced in note, and I agree with, and take responsibility for the plan of care. Patient feeling improved. EKG 02/26/24 interpreted independently: SR at 66 bpm, normal EKG. No subjective complaints. BP improved. Continue medication plan as outlined. Lovenox 40 mg SQ daily for DVT prophylaxis. I spent a total of 25 minutes coordinating, documenting, and providing care for this patient excluding time spent in the performance of separately billed services or time spent by another provider. Jeremiah Hanks, Subjective Patient resting in chair, feeling better. Still had orthopnea last night. SOB improving but not yet at baseline. No edema. No chest pain. Tolerating med changes. Review of Systems Review of Systems: All systems reviewed & are unremarkable except as noted in HPI & below Physical Exam Constitutional: WD/WN, vitals as above no acute distress Neck: normal visual inspection Respiratory: no respiratory distress Auscultation: + diminished lung sounds (bases b/l) and + rales (faint) Cardiovascular: Rate/Rhythm: regular rate and regular rhythm Heart Sounds: + murmur (II/ systolic murmur) Vessels: + JVD (in the upright position) Extremities: no edema Gastrointestinal (Abdomen): Inspection/Auscultation: abdomen normal to inspection Percussion/Palpation: abdomen soft Skin: no rashes, warm and dry Neurologic: PERRL, EOMI, accommodation nl, no face palsy, no dysarthria Results & Data Vital Signs (Past 12 Hours) Vital Signs Temp Pulse Pulse Resp BP Pulse Ox O2 Del Method 02/26/24 12:05 69 02/26/24 11:33 36.7 C 71 19 132/80 93 Room Air 02/26/24 10:08 22 93 02/26/24 08:32 Nasal Cannula 02/26/24 07:57 37.0 C 75 18 168/85 H 91 Room Air 02/26/24 03:40 71 15 93 02/26/24 03:37 36.7 C 74 17 181/69 H 93 Room Air O2 Flow Rate 02/26/24 12:05 02/26/24 11:33 02/26/24 10:08 2 02/26/24 08:32 2 02/26/24 07:57 02/26/24 03:40 2 02/26/24 03:37 Laboratory Results Cardiac Enzymes 02/25/24 02/25/24 02/26/24 Range/Units 11:47 17:43 04:50 AST 28 (13-39) U/L Troponin I High Sens 171.2 H* 120.9 H* D (0-14) pg/ml CBC 02/26/24 Range/Units 04:50 WBC 4.69 L (4.8-10.8) K/ul RBC 3.42 L (4.20-5.40) M/uL Hgb 10.7 L (12.0-16.0) g/dl Hct 32.8 L (37.0-47.0) % Plt Count 212 (130-400) K/uL Comprehensive Metabolic Panel 02/26/24 Range/Units 04:50 Sodium 140 (136-145) mmol/L Potassium 3.9 (3.5-5.1) mmol/L Chloride 100 (98-107) mmol/L Carbon Dioxide 32 (21-32) mmol/L BUN 19 (6-23) mg/dl Creatinine 1.02 (0.6-1.2) mg/dl Glucose 104 H (70-99(Fasting)) mg/dl Calcium 9.4 (8.6-10.3) mg/dl AST 28 (13-39) U/L ALT 13 (7-52) U/L Alkaline Phosphatase 50 (34-104) U/L Total Protein 7.3 (6.0-8.3) gm/dl Albumin 4.1 (3.4-5.0) gm/dl Intake and Output 02/25/24 02/26/24 02/26/24 22:59 06:59 14:59 Intake Total 240 / 240 400 / 400 Output Total 2049 Balance -1809 / -1809 400 / 400 Intake: Oral 240 / 240 400 / 400 Output: Urine Amount (Catheter) 2049 Titus/Indwelling 2049 Other: Weight 73.7 kg 76.4 kg Weight Measurement Method Standing Scale Built in Bedscale Patient Weight 02/27/24 06:59 Weight 76.4 kg Diagnostic Findings Telemetry reviewed: Sinus in the 70-80's. echo reviewed from 02/25/24: Moderate LVH No regional wall motion abnormalities LVEF > 70% Aortic valve sclerosis without stenosis Moderate mitral calcification. no mitral stenosis PASP 37 mmHg - upper limit of normal Grade II diastolic dysfunction Medications Administered Current Inpatient Medications Acetaminophen (Acetaminophen 325 Mg Tab) 650 mg PO Q4H PRN PRN Reason: Pain or Fever Stop: 03/26/24 09:39 Last Admin: 02/25/24 12:01 Dose: 650 mg Al Hydrox/Mg Hydrox/Simethicone (Aluminum/Magnesium Susp 30 Ml Udc) 15 ml PO Q4H PRN PRN Reason: Dyspepsia Stop: 03/26/24 09:39 Aspirin (Aspirin 81 Mg Ectab) 81 mg PO QAM COUNTS INCLUDE 234 BEDS AT THE [facility] Stop: 03/26/24 13:59 Last Admin: 02/26/24 08:43 Dose: 81 mg Enoxaparin Sodium (Enoxaparin Inj 40 Mg/0.4 Ml Syr) 40 mg SQ QAM COUNTS INCLUDE 234 BEDS AT THE [facility] Stop: 03/26/24 10:59 Last Admin: 02/26/24 08:43 Dose: 40 mg Furosemide (Furosemide 40 Mg/4 Ml Vial) 40 mg IV BIDM COUNTS INCLUDE 234 BEDS AT THE [facility] Stop: 03/27/24 07:59 Last Admin: 02/26/24 08:41 Dose: 40 mg Gabapentin (Gabapentin 300 Mg Cap) 300 mg PO BID COUNTS INCLUDE 234 BEDS AT THE [facility] Stop: 03/26/24 10:44 Last Admin: 02/26/24 08:43 Dose: 300 mg Lisinopril (Lisinopril 20 Mg Tab) 20 mg PO BID JONAS Stop: 03/26/24 10:44 Last Admin: 02/26/24 08:42 Dose: 20 mg Magnesium Hydroxide (Magnesium Hydroxide Susp 30 Ml Udc) 30 ml PO Q12H PRN PRN Reason: Constipation Stop: 03/26/24 09:39 Ondansetron HCl (Ondansetron Inj 2 Mg/Ml 2 Ml Vial) 4 mg IV Q6H PRN PRN Reason: Nausea Stop: 03/26/24 09:39 Polyethylene Glycol (Polyethylene (Miralax) 17 Gm Pack) 17 gm PO DAILY PRN PRN Reason: Constipation Stop: 03/26/24 09:39 Simvastatin (Simvastatin 20 Mg Tab) 20 mg PO DAILY COUNTS INCLUDE 234 BEDS AT THE [facility] Stop: 03/26/24 10:44 Last Admin: 02/26/24 08:42 Dose: 20 mg Spironolactone (Spironolactone 12.5 Mg Tab) 12.5 mg PO DAILY COUNTS INCLUDE 234 BEDS AT THE [facility] Stop: 03/27/24 10:59 Last Admin: 02/26/24 11:49 Dose: 12.5 mg
--- NOTE | 2024-02-26 17:44 | Hospitalist Progress Note ---
Date of Service February 26, 2024 Assessment & Plan (1) Hypertensive emergency: (2) Shortness of breath: (3) Hyperlipidemia: (4) Lumbar radiculopathy, chronic: Plan Per admitting service notes with addendum: Ms. Singh is a 73 year old female that presents to the ED today with SOB that she states started last night at 2200 after climbing 15 stairs at her home. She did not fall asleep until 0200 and did not awaken after she was asleep. She reports 15 pound weight gain over the past 1.5 months. On arrival, her BP was elevated 232/126 and she had complaints of right shoulder discomfort but no anterior chest pain. NOrmally she does not have any MELENDEZ. CXR suggestive of volume overload. She consistently uses her CPAP at home and is compliant on her medications. PMH includes DUC (CPAP at night), invasive ductal breast cancer, HTN, HLD, lumbar radiculopathy. Most recent ECHO: 01/2024 LV wall concentric motion, EF 55-59%, GIIDDx without pHTN. No leukocytosis, BNP 410, troponin 84.4; suspect ischemic demand rather than ACS. In the ED Nitropaste 1 inch and Lasix 40 mg IV administered. Patient is receptive to indwelling Titus catheter for adequate and more accurate I's/O. Patient will be admitted for continued evaluation and management of HTN emergency and diastolic congestive heart failure. Repeat echo as patient has an appointment 03/10 for repeat echo. Administer additional dose of Lasix and increased dose of lisinopril to 20 mg twice daily. Will involve cardiology to establish care for newly diagnosed CHF. HTN emergency: Diastolic CHF: Acute Admit to PCU No leukocytosis, BNP 410 Troponin 84.4 --> 160--> 170; trend one more Q6. No chest pain. Suspect ischemic demand given heart failure CXR suggestive of pulm edema Lasix 40 mg IV given in ED; will administer an additional 20 mg and insert Titus for accurate I's/O BP 232/126 in ED; Nitro paste 1" admin; responded, now in 170's. Takes Lisinopril and HCTZ; did not take this AM; hold HCTZ for now per Cards recc; may benefit from loop diuretic therapy When I was in the room she was 170/90; increase dose of Lisinopril to 20 mg BID starting now ECHO 02/13: LV wall concentric motion, EF 55-59%, GIIDDx without pHTN. She had the ECHO recently due to heart murmur Was advised that it was difficult to visualize the valves and repeat echo was scheduled for 03/10; will repeat now while inpatient 1500mL fluid restriction Cardiology consultation given new diastolic CHF diagnosis 02/25 Diuresing well Continue Lasix IV plus bilateral Monitor closely HLD: Chronic Takes simvastatin; continue Most recent Lipid panel 11/2023: TG 113, HDL 63, LDL 77 Lumbar Radiculopathy: Chronic Follows with Pain management Recently started steroid injections Disposition: Anticipate discharge to home medically stable Admission and Anticipated Discharge Date Admission Date: February 25, 2024 Subjective ff up for CHF exacerbation, etc seen resting in bed, comfortable states she feels improved overall Breathing is better No chest pain, palpitations, dizziness No other new symptoms Review of Systems Review of Systems: all noted and negative except for above Physical Exam Physical Exam: General- oriented x 3, not in distress, speaks in sentences with no effort or accessory muscle use Eyes- anicteric Neck- no JVD Lungs- clear breath sounds bilaterally, no rales/wheezes Heart- normal rate, regular rhythm; no murmurs Abdomen- normal bowel sounds, nondistended, soft, nontender Extremities- no pretibial edema, no calf tenderness Neuro- alert, oriented x 3; no gross focal neurologic deficits Skin- warm & dry Results & Data Results & Data Vital Signs (Past 12 Hours) Vital Signs Temp Pulse Pulse Resp BP Pulse Ox O2 Del Method 02/26/24 17:24 69 02/26/24 15:34 36.5 C 68 17 118/71 93 Room Air 02/26/24 12:05 69 02/26/24 11:33 36.7 C 71 19 132/80 93 Room Air 02/26/24 10:08 22 93 02/26/24 08:32 Nasal Cannula 02/26/24 07:57 37.0 C 75 18 168/85 H 91 Room Air O2 Flow Rate 02/26/24 17:24 02/26/24 15:34 02/26/24 12:05 02/26/24 11:33 02/26/24 10:08 2 02/26/24 08:32 2 02/26/24 07:57 all noted and reviewed including below
--- NOTE | 2024-02-27 06:42 | Electrocardiogram Report ---
Test Reason : Blood Pressure : / mmHG Vent. Rate : 093 BPM Atrial Rate : 093 BPM P-R Int : 142 ms QRS Dur : 080 ms QT Int : 338 ms P-R-T Axes : 072 -08 053 degrees QTc Int : 420 ms Sinus rhythm with Premature atrial complexes Nonspecific ST and T wave abnormality Abnormal ECG When compared with ECG of 14-APR-2008 07:09, Premature atrial complexes are now Present Nonspecific T wave abnormality now evident in Lateral leads Confirmed by Bhavin Herbert ([id number]) on 02/27/2024 6:42:17 AM Referred By: REFERRED SELF Confirmed By:Bhavin Herbert
--- NOTE | 2024-02-27 07:22 | Electrocardiogram Report ---
Test Reason : Blood Pressure : / mmHG Vent. Rate : 066 BPM Atrial Rate : 066 BPM P-R Int : 146 ms QRS Dur : 084 ms QT Int : 436 ms P-R-T Axes : -05 -12 014 degrees QTc Int : 457 ms Normal sinus rhythm Normal ECG When compared with ECG of 25-FEB-2024 07:11, (unconfirmed) Premature atrial complexes are no longer Present Nonspecific T wave abnormality, improved in Inferior leads Nonspecific T wave abnormality no longer evident in Lateral leads Confirmed by Bhavin Herbert ([id number]) on 02/27/2024 7:21:48 AM Referred By: REFERRED SELF Confirmed By:Bhavin Herbert
--- NOTE | 2024-02-27 07:54 | Cardiology Progress Note ---
<Statement entered by Johanna Tan, DO - 02/27/24 12:24> I have reviewed the advanced practitioner's documentation and agree with the plan of care. I accept the responsibility for the associated risk. Pt seen in cardiology f/u due to hypertensive urgency and acute on chronic heart failure with preserved EF. She is feeling better; her BP is still slightly up- would recommend increasing spironolactone to 25mg daily She is worried for her daughter is in the air face and is headed [place]. i do not thin she needs any more IV lasix; would benefit from lasix PO at home 40 BID Would monitor overnight and get pt ambulating as well today; hopefully can discharge tomorrow Date of Service February 27, 2024 Assessment & Plan (1) Hypertensive urgency: (2) Acute on chronic diastolic heart failure with preserved ejection fraction: (3) Elevated troponin: Plan Currently admitted with hypertensive urgency and acute on chronic diastolic CHF. Fluid balance -3 L, weight is down 4 kg Heart rate and blood pressure currently well-controlled Daily weight with standing scale recommended Monitor I+O's. Monitor and replace electrolytes as necessary, recommend K greater than 4 Mg greater than 2 Fluid restriction of 1500 ml She is euvolemic on exam Will transition to oral diuretics, furosemide 40 mg twice per day Will also increase spironolactone to 25 mg daily to optimize blood pressure management Continue lisinopril, simvastatin, aspirin Case discussed with Dr. Tan Please see attestation for additional recommendations. I spent a total of 30 minutes on the date of service in preparation, delivery, and documentation of the care provided to the patient excluding any time spent in the performance of separately billed services. NADINE Machado Department of Cardiology, [facility] This chart was completed in part utilizing Speech Voice Recognition Software. Grammatical errors, random word insertions, pronoun errors, and incomplete sentences are an occasional consequence of this system due to software limitations, ambient noise, and hardware issues. Any formal questions or concerns about the content, text, or information contained within the body of this dictation should be directly addressed to the provider for clarification. Admission and Anticipated Discharge Date Admission Date: February 25, 2024 Subjective 73-year-old female seen in cardiology follow-up today in regard to acute on chronic CHF exacerbation. She is feeling significantly better no longer struggling with shortness of breath. LE edema has resolved. Has not ambulated much, but able to ambulate in the room without difficulty. Review of Systems Constitutional: no fever and no chills Respiratory: no cough and no dyspnea on exertion Cardiovascular: no chest pain Gastrointestinal: no abdominal pain, no nausea and no vomiting Integumentary: no rash and no lesions Neurologic: no gait abnormality, no unsteadiness and no falls Physical Exam Constitutional: WD/WN, vitals as above well developed and well nourished; no acute distress Eyes: PERRL, conjunctivae normal, anicteric sclerae Neck: trachea midline, no thyromegaly Respiratory: normal respiratory effort, lungs clear to auscultation no respiratory distress Cardiovascular: Rate/Rhythm: regular rate and regular rhythm Heart Sounds: normal S1 and normal S2 Vessels: no JVD and no carotid bruit Extremities: normal capillary refill; no edema Gastrointestinal (Abdomen): normal bowel sounds, soft, nontender, no hepatosplenomegaly Skin: no rashes, warm and dry Psychiatric: A+Ox3, euthymic affect Results & Data Vital Signs (Past 12 Hours) Vital Signs Temp Pulse Pulse Resp BP Pulse Ox O2 Del Method 02/27/24 03:48 37 C 93 H 18 144/73 H 93 CPAP 02/27/24 02:25 30 H 02/27/24 01:20 88 02/26/24 23:06 37.4 C 79 16 170/76 H 90 CPAP 02/26/24 22:52 86 25 H 95 02/26/24 20:55 CPAP O2 Flow Rate 02/27/24 03:48 02/27/24 02:25 2 02/27/24 01:20 02/26/24 23:06 2 02/26/24 22:52 2 02/26/24 20:55 Laboratory Results Intake and Output 02/26/24 02/27/24 02/27/24 22:59 06:59 14:59 Intake Total 460 / 1420 100 / 1420 Output Total 900 / 3150 400 / 3150 Balance -440 / -1730 -300 / -1730 Intake: Oral 460 / 1420 100 / 1420 Output: Urine Amount (Catheter) 900 / 3150 400 / 3150 Titus/Indwelling 900 / 3150 400 / 3150 Other: Weight 72.66 kg Weight Measurement Method Standing Scale Diagnostic Findings Laboratory Results WBC 4.69 K/ul (4.8-10.8) L 02/26/24 04:50 RBC 3.42 M/uL (4.20-5.40) L 02/26/24 04:50 Hgb 10.7 g/dl (12.0-16.0) L 02/26/24 04:50 Hct 32.8 % (37.0-47.0) L 02/26/24 04:50 MCV 95.9 fL (80.0-100.0) 02/26/24 04:50 MCH 31.3 pg (25.0-34.0) 02/26/24 04:50 MCHC 32.6 g/dL (32.0-36.0) 02/26/24 04:50 RDW Std Deviation 48.6 fL (36.4-46.3) H 02/26/24 04:50 RDW Coeff of J Luis 13.6 % (11.5-14.5) 02/26/24 04:50 Plt Count 212 K/uL (130-400) 02/26/24 04:50 MPV 10.0 fL (9.4-12.4) 02/26/24 04:50 Immature Gran % (Auto) 0.3 % 02/25/24 07:12 Neut % (Auto) 82.5 % 02/25/24 07:12 Lymph % (Auto) 10.6 % 02/25/24 07:12 [place] % (Auto) 5.8 % 02/25/24 07:12 Eos % (Auto) 0.1 % 02/25/24 07:12 Baso % (Auto) 0.7 % 02/25/24 07:12 Neut # (Auto) 7.40 K/uL (1.40-6.50) H 02/25/24 07:12 Lymph # (Auto) 0.95 K/uL (1.20-3.40) L 02/25/24 07:12 [place] # (Auto) 0.52 K/uL (0.11-0.59) 02/25/24 07:12 Eos # (Auto) 0.01 K/uL (0.00-0.50) 02/25/24 07:12 Baso # (Auto) 0.06 K/uL (0.00-0.20) 02/25/24 07:12 Immature Gran # (Auto) 0.03 K/uL (0.01-0.20) 02/25/24 07:12 PT 10.6 Seconds (9.0-12.0) 02/25/24 07:12 INR 1.0 (0.9-1.1) 02/25/24 07:12 APTT 26 Seconds (21-31) 02/25/24 07:12 PTT Ratio 0.9 02/25/24 07:12 Sodium 140 mmol/L (136-145) 02/26/24 04:50 Potassium 3.9 mmol/L (3.5-5.1) 02/26/24 04:50 Chloride 100 mmol/L (98-107) 02/26/24 04:50 Carbon Dioxide 32 mmol/L (21-32) 02/26/24 04:50 Anion Gap 8 (3-11) 02/26/24 04:50 BUN 19 mg/dl (6-23) 02/26/24 04:50 Creatinine 1.02 mg/dl (0.6-1.2) 02/26/24 04:50 Est Cr Clr Drug Dosing 39.8 ml/min 02/26/24 04:50 Est GFR ( Amer) 63.2 ml/min 02/26/24 04:50 Est GFR (Non-Af Amer) 54.5 ml/min 02/26/24 04:50 BUN/Creatinine Ratio 18.6 (10-20) 02/26/24 04:50 Glucose 104 mg/dl (70-99(Fasting)) H 02/26/24 04:50 Calcium 9.4 mg/dl (8.6-10.3) 02/26/24 04:50 Phosphorus 3.7 mg/dl (2.5-4.9) 02/25/24 09:35 Magnesium 1.7 mg/dl (1.7-2.4) 02/25/24 09:35 Total Bilirubin 0.6 mg/dl (0.2-1.0) 02/26/24 04:50 AST 28 U/L (13-39) 02/26/24 04:50 ALT 13 U/L (7-52) 02/26/24 04:50 Alkaline Phosphatase 50 U/L (34-104) 02/26/24 04:50 Troponin I High Sens 120.9 pg/ml (0-14) H* D 02/25/24 17:43 B-Natriuretic Peptide 410 pg/ml (0-100) H 02/25/24 07:12 Total Protein 7.3 gm/dl (6.0-8.3) 02/26/24 04:50 Albumin 4.1 gm/dl (3.4-5.0) 02/26/24 04:50 Globulin 3.2 gm/dl (2.5-4.0) 02/26/24 04:50 Albumin/Globulin Ratio 1.3 (0.9-2) 02/26/24 04:50 Procalcitonin 0.08 ng/ml (0-0.5) 02/25/24 07:12 Urine Color Yellow 02/25/24 09:22 Urine Appearance Clear (Clear) 02/25/24 09:22 Urine pH 7.5 (4.5-7.5) 02/25/24 09:22 Ur Specific [place] 1.006 (1.000-1.030) 02/25/24 09:22 Urine Protein Negative (Negative) 02/25/24 09:22 Urine Glucose (UA) Negative (Negative) 02/25/24 09:22 Urine Ketones Negative (Negative) 02/25/24 09:22 Urine Blood Negative (Negative) 02/25/24 09:22 Urine Nitrite Negative (Negative) 02/25/24 09:22 Urine Bilirubin Negative (Negative) 02/25/24 09:22 Urine Urobilinogen Negative (Negative) 02/25/24 09:22 Ur Leukocyte Esterase Negative (Negative) 02/25/24 09:22 Impressions Chest X-Ray 02/25/24 07:31 SINGLE VIEW CHEST CLINICAL HISTORY: Dyspnea FINDINGS: An AP, portable, upright chest radiograph is compared to study dated 04/14/2008 and correlated with chest CT dated 06/09/2008. The examination is degraded by portable technique and apical lordotic positioning. The heart is mildly enlarged. There is pulmonary vascular congestion. Bilateral airspace opacities are noted. No large pleural effusion or pneumothorax is seen. The skeletal structures are osteopenic. The bony thorax is grossly intact. Calcific tendinopathy is noted in the left shoulder. IMPRESSION: 1. Cardiomegaly with pulmonary vascular congestion. 2. Bilateral airspace opacities likely represent pulmonary edema. Correlate clinically for evidence of a superimposed infectious/inflammatory pneumonitis. Radiographic follow-up to resolution is recommended. ACT 112: Negative or not required by law. Electronically signed by: Kalin Bronson M.D. 02/25/2024 8:24 AM Echocardiogram 02/25/24 Technically limited study Moderate concentric LVH No regional wall motion abnormality LVEF 70% Aortic valve sclerosis moderate without significant aortic valve stenosis Moderate mitral annular calcification Significant mitral regurgitation absent, however assessment is technically limit ed due to acoustic shadowing from mitral valve calcification There is no mitral valve stenosis Pulmonary artery systolic pressure estimated at 37 mmHg Grade 2 diastolic dysfunction Medications Administered Current Inpatient Medications Acetaminophen (Acetaminophen 325 Mg Tab) 650 mg PO Q4H PRN PRN Reason: Pain or Fever Stop: 03/26/24 09:39 Last Admin: 02/25/24 12:01 Dose: 650 mg Al Hydrox/Mg Hydrox/Simethicone (Aluminum/Magnesium Susp 30 Ml Udc) 15 ml PO Q4H PRN PRN Reason: Dyspepsia Stop: 03/26/24 09:39 Aspirin (Aspirin 81 Mg Ectab) 81 mg PO QAM [facility] Stop: 03/26/24 13:59 Last Admin: 02/26/24 08:43 Dose: 81 mg Enoxaparin Sodium (Enoxaparin Inj 40 Mg/0.4 Ml Syr) 40 mg SQ QAM [facility] Stop: 03/26/24 10:59 Last Admin: 02/26/24 08:43 Dose: 40 mg Furosemide (Furosemide 40 Mg/4 Ml Vial) 40 mg IV BIDM [facility] Stop: 03/27/24 07:59 Last Admin: 02/26/24 16:48 Dose: 40 mg Gabapentin (Gabapentin 300 Mg Cap) 300 mg PO BID [facility] Stop: 03/26/24 10:44 Last Admin: 02/26/24 20:08 Dose: 300 mg Lisinopril (Lisinopril 20 Mg Tab) 20 mg PO BID [facility] Stop: 03/26/24 10:44 Last Admin: 02/26/24 20:07 Dose: 20 mg Magnesium Hydroxide (Magnesium Hydroxide Susp 30 Ml Udc) 30 ml PO Q12H PRN PRN Reason: Constipation Stop: 03/26/24 09:39 Ondansetron HCl (Ondansetron Inj 2 Mg/Ml 2 Ml Vial) 4 mg IV Q6H PRN PRN Reason: Nausea Stop: 03/26/24 09:39 Polyethylene Glycol (Polyethylene (Miralax) 17 Gm Pack) 17 gm PO DAILY PRN PRN Reason: Constipation Stop: 03/26/24 09:39 Simvastatin (Simvastatin 20 Mg Tab) 20 mg PO DAILY [facility] Stop: 03/26/24 10:44 Last Admin: 02/26/24 08:42 Dose: 20 mg Spironolactone (Spironolactone 12.5 Mg Tab) 12.5 mg PO DAILY [facility] Stop: 03/27/24 10:59 Last Admin: 02/26/24 11:49 Dose: 12.5 mg
[2024-02-27 09:36] LABS: Calcium 9.7 mg/dl (8.6-10.3); Creatinine Clr Calc Pharmacy 35.9 ml/min; Est GFR (African American) 56.4 ml/min; Est GFR (Non-African American) 48.7 ml/min; Magnesium 1.6 mg/dl (1.7-2.4); Potassium 3.5 mmol/L (3.5-5.1)
[2024-02-27] MEDS: SPIRONOLACTONE 12.5 MG TAB PO ONE (12:57)
--- NOTE | 2024-02-27 16:12 | Hospitalist Progress Note ---
Date of Service February 27, 2024 Assessment & Plan (1) Hypertensive emergency: (2) Shortness of breath: (3) Hyperlipidemia: (4) Lumbar radiculopathy, chronic: Plan Per admitting service notes with addendum: Ms. Singh is a 73 year old female that presents to the ED today with SOB that she states started last night at 2200 after climbing 15 stairs at her home. She did not fall asleep until 0200 and did not awaken after she was asleep. She reports 15 pound weight gain over the past 1.5 months. On arrival, her BP was elevated 232/126 and she had complaints of right shoulder discomfort but no anterior chest pain. NOrmally she does not have any MELENDEZ. CXR suggestive of volume overload. She consistently uses her CPAP at home and is compliant on her medications. PMH includes DUC (CPAP at night), invasive ductal breast cancer, HTN, HLD, lumbar radiculopathy. Most recent ECHO: 01/2024 LV wall concentric motion, EF 55-59%, GIIDDx without pHTN. No leukocytosis, BNP 410, troponin 84.4; suspect ischemic demand rather than ACS. In the ED Nitropaste 1 inch and Lasix 40 mg IV administered. Patient is receptive to indwelling Titus catheter for adequate and more accurate I's/O. Patient will be admitted for continued evaluation and management of HTN emergency and diastolic congestive heart failure. Repeat echo as patient has an appointment 03/10 for repeat echo. Administer additional dose of Lasix and increased dose of lisinopril to 20 mg twice daily. Will involve cardiology to establish care for newly diagnosed CHF. HTN emergency: Diastolic CHF: Acute Admit to PCU No leukocytosis, BNP 410 Troponin 84.4 --> 160--> 170; trend one more Q6. No chest pain. Suspect ischemic demand given heart failure CXR suggestive of pulm edema Lasix 40 mg IV given in ED; will administer an additional 20 mg and insert Titus for accurate I's/O BP 232/126 in ED; Nitro paste 1" admin; responded, now in 170's. Takes Lisinopril and HCTZ; did not take this AM; hold HCTZ for now per Cards recc; may benefit from loop diuretic therapy When I was in the room she was 170/90; increase dose of Lisinopril to 20 mg BID starting now ECHO 02/13: LV wall concentric motion, EF 55-59%, GIIDDx without pHTN. She had the ECHO recently due to heart murmur Was advised that it was difficult to visualize the valves and repeat echo was scheduled for 03/10; will repeat now while inpatient 1500mL fluid restriction Cardiology consultation given new diastolic CHF diagnosis 02/25 Diuresing well Continue Lasix IV plus bilateral Monitor closely 02/26 Improving Lasix transitioned to p.o. Spironolactone increased to 25 mg Anticipate discharge tomorrow HLD: Chronic Takes simvastatin; continue Most recent Lipid panel 11/2023: TG 113, HDL 63, LDL 77 Lumbar Radiculopathy: Chronic Follows with Pain management Recently started steroid injections Disposition: Anticipate discharge to home tomorrow Admission and Anticipated Discharge Date Admission Date: February 25, 2024 Subjective Follow-up for CHF, etc. Seen resting in bedside chair, comfortable, not in distress States she feels okay overall no chest pain, dyspnea, palpitations, dizziness Worried about her daughter going to [place] No other new symptoms Review of Systems Review of Systems: all noted and negative except for above Physical Exam Physical Exam: General- oriented x 3, not in distress, speaks in sentences with no effort or accessory muscle use Eyes- anicteric Neck- no JVD Lungs- clear breath sounds bilaterally, no crackles or wheezing Heart- normal rate, regular rhythm; no murmurs Abdomen- normal bowel sounds, nondistended, soft, nontender Extremities- no pretibial edema, no calf tenderness Neuro- alert, oriented x 3; no gross focal neurologic deficits Skin- warm & dry Results & Data Results & Data Vital Signs (Past 12 Hours) Vital Signs Temp Pulse Pulse Resp BP BP Pulse Ox 02/27/24 15:00 85 02/27/24 14:05 36.6 C 72 18 129/75 91 02/27/24 07:50 36.8 C 96 H 18 162/89 H 94 O2 Del Method 02/27/24 15:00 02/27/24 14:05 Room Air 02/27/24 07:50 Room Air all noted and reviewed including below
[2024-02-27] MEDS: FUROSEMIDE 40 MG TAB PO SCH (16:59)
--- NOTE | 2024-02-27 20:20 | XRay Report ---
XR chest 1V portable CLINICAL HISTORY: ff up chf TECHNIQUE: Single frontal radiograph of the chest was obtained. Comparison: Comparison is made to chest radiograph 02/25/2024 FINDINGS: No lines and tubes are seen. The cardiomediastinal silhouette is stable. The lungs are clear. No evid ence of pleural effusion or pneumothorax. IMPRESSION: Interval resolution of previously noted pulmonary edema. Redemonstration of cardiomegaly. ACT 112: Negative or not required by law. Electronically signed by: Jim Rizzo M.D. 02/27/2024 8:19 PM
[2024-02-28 07:24] LABS: BUN Creatinine Ratio 30.5 (10-20); Calcium 9.5 mg/dl (8.6-10.3); Creatinine Clr Calc Pharmacy 42.2 ml/min; Est GFR (African American) 68.9 ml/min; Est GFR (Non-African American) 59.4 ml/min; Magnesium 1.7 mg/dl (1.7-2.4); Potassium 3.6 mmol/L (3.5-5.1)
[2024-02-28] MEDS: SPIRONOLACTONE 25 MG TAB PO SCH (08:52)
--- NOTE | 2024-02-28 13:58 | Hospitalist Progress Note ---
Date of Service February 28, 2024 Assessment & Plan (1) Hypertensive emergency: (2) Shortness of breath: (3) Hyperlipidemia: (4) Lumbar radiculopathy, chronic: Plan Per admitting service notes with addendum: Ms. Singh is a 73 year old female that presents to the ED today with SOB that she states started last night at 2200 after climbing 15 stairs at her home. She did not fall asleep until 0200 and did not awaken after she was asleep. She reports 15 pound weight gain over the past 1.5 months. On arrival, her BP was elevated 232/126 and she had complaints of right shoulder discomfort but no anterior chest pain. NOrmally she does not have any MELENDEZ. CXR suggestive of volume overload. She consistently uses her CPAP at home and is compliant on her medications. PMH includes DUC (CPAP at night), invasive ductal breast cancer, HTN, HLD, lumbar radiculopathy. Most recent ECHO: 01/2024 LV wall concentric motion, EF 55-59%, GIIDDx without pHTN. No leukocytosis, BNP 410, troponin 84.4; suspect ischemic demand rather than ACS. In the ED Nitropaste 1 inch and Lasix 40 mg IV administered. Patient is receptive to indwelling Titus catheter for adequate and more accurate I's/O. Patient will be admitted for continued evaluation and management of HTN emergency and diastolic congestive heart failure. Repeat echo as patient has an appointment 03/10 for repeat echo. Administer additional dose of Lasix and increased dose of lisinopril to 20 mg twice daily. Will involve cardiology to establish care for newly diagnosed CHF. HTN emergency: Diastolic CHF: Acute Admit to PCU No leukocytosis, BNP 410 Troponin 84.4 --> 160--> 170; trend one more Q6. No chest pain. Suspect ischemic demand given heart failure CXR suggestive of pulm edema Lasix 40 mg IV given in ED; will administer an additional 20 mg and insert Titus for accurate I's/O BP 232/126 in ED; Nitro paste 1" admin; responded, now in 170's. Takes Lisinopril and HCTZ; did not take this AM; hold HCTZ for now per Cards recc; may benefit from loop diuretic therapy When I was in the room she was 170/90; increase dose of Lisinopril to 20 mg BID starting now ECHO 02/13: LV wall concentric motion, EF 55-59%, GIIDDx without pHTN. She had the ECHO recently due to heart murmur Was advised that it was difficult to visualize the valves and repeat echo was scheduled for 03/10; will repeat now while inpatient 1500mL fluid restriction Cardiology consultation given new diastolic CHF diagnosis 02/25 Diuresing well Continue Lasix IV plus bilateral Monitor closely 02/26 Improving Lasix transitioned to p.o. Spironolactone increased to 25 mg Anticipate discharge tomorrow 02/27 clinically improved discharge on: Lasix 40mg po BID Spironolactone 25mg po daily Aspirin 81mg po daily Lisinopril increased to 20mg BID HLD: Chronic Takes simvastatin; continue Most recent Lipid panel 11/2023: TG 113, HDL 63, LDL 77 Lumbar Radiculopathy: Chronic Follows with Pain management Recently started steroid injections Disposition: d/c home ff up with PCP in 1 week Admission and Anticipated Discharge Date Admission Date: February 25, 2024 Subjective ff up for CHF etc seen resting in chair, comfortable no chest pain, dyspnea, palpitations, dizziness having some leg cramps- chronic no other new symptoms states she is ready for discharge today Review of Systems Review of Systems: all noted and negative except for above Physical Exam Physical Exam: General- oriented x 3, not in distress, speaks in sentences with no effort or accessory muscle use Eyes- anicteric Neck- no JVD Lungs- clear breath sounds bilaterally, no rales/wheezes Heart- normal rate, regular rhythm; no murmurs Abdomen- normal bowel sounds, nondistended, soft, no tenderness Extremities- no pretibial edema, no calf tenderness Neuro- alert, oriented x 3; no gross focal neurologic deficits Skin- warm & dry Results & Data Results & Data Vital Signs (Past 12 Hours) Vital Signs Temp Pulse Resp BP BP Pulse Ox O2 Del Method 02/28/24 12:00 37.0 C 82 18 138/75 162/89 H 94 02/28/24 10:50 37.2 C 88 18 109/65 94 Room Air 02/28/24 07:32 37.0 C 82 18 138/75 94 Room Air 02/28/24 03:12 36.6 C 70 16 124/73 91 CPAP 02/28/24 02:26 22 O2 Flow Rate 02/28/24 12:00 02/28/24 10:50 02/28/24 07:32 02/28/24 03:12 02/28/24 02:26 2 all noted and reviewed including below
--- NOTE | 2024-02-28 14:02 | Discharge Summary ---
Discharge Summary Date of Service February 28, 2024 Notes For Next Care Provider Medication Changes From Visit Furosemide, Spironolactone- diuretics for congestive heart failure Aspirin- antiplatelet for prevention of heart attack Increase Lisinopril to 20mg twice a day. Stop HCTZ. Admission HPI Per Admitting Provider Ms. Singh is a 73 year old female that presents to the ED today with SOB that she states started last night at 2200 after climbing 15 stairs at her home. She did not fall asleep until 0200 and did not awaken after she was asleep. She reports 15 pound weight gain over the past 1.5 months. On arrival her BP was elevated 232/126 and she had complaints of right shoulder discomfort but no anterior chest pain. CXR suggestive of volume overload. She consistently uses her CPAP at home and is compliant on her medications. PMH includes DUC, invasive ductal breast cancer, HTN, HLD, lumbar radiculopathy. Most recent ECHO: 01/2024 LV wall concentric motion, EF 55-59%, GIIDDx without pHTN. She had the ECHO recently due to heart murmur. Patient denies tobacco, alcohol, recreational drug use. No leukocytosis, BNP 410, troponin 84.4; suspect ischemic demand rather than ACS. In the ED Nitropaste 1 inch and Lasix 40 mg IV administered. Patient is receptive to indwelling Titus catheter for adequate and more accurate I's/O. Patient denies fever, chills, headache, dizziness, chest pain, palpitations, nausea, vomiting, diarrhea, urinary changes or dysuria, recent falls or trauma. Patient will be admitted for continued evaluation and management of diastolic congestive heart failure. Repeat echo as patient has an appointment 03/10 for repeat echo. Administer additional dose of Lasix and increased dose of lisinopril to 20 mg twice daily. Will involve cardiology to establish care for newly diagnosed CHF. Admission Exam Per Admitting Provider Neuro: AAOx4, PERRLA, no aphagia, memory changes, CNII-XII grossly intact HEENT: head normocephalic, atraumatic, moist mucus membranes CV: S1/S2, (-) M/G/R, (-) edema, cap refill < 3 seconds Resp: Lungs crackles lower posterior bases. On Nasal pillow Bipap. GI: Abdomen S/NT/ND, Ax4 bowel sounds, (-) CVA tenderness Musculoskeletal: 5/5 B/L UE strength, 5/5 B/L LE strength. No gait disturbance Skin: (-) rashes , (-) erythema. Psych: euthymic, yet tearful mood Principal Dx & Hospital Course #1 = Principal Diagnosis (1) Hypertensive emergency: (2) Shortness of breath: (3) Hyperlipidemia: (4) Lumbar radiculopathy, chronic: Plan Per admitting service notes with addendum: Ms. Singh is a 73 year old female that presents to the ED today with SOB that she states started last night at 2200 after climbing 15 stairs at her home. She did not fall asleep until 0200 and did not awaken after she was asleep. She reports 15 pound weight gain over the past 1.5 months. On arrival, her BP was elevated 232/126 and she had complaints of right shoulder discomfort but no anterior chest pain. NOrmally she does not have any MELENDEZ. CXR suggestive of volume overload. She consistently uses her CPAP at home and is compliant on her medications. PMH includes DUC (CPAP at night), invasive ductal breast cancer, HTN, HLD, lumbar radiculopathy. Most recent ECHO: 01/2024 LV wall concentric motion, EF 55-59%, GIIDDx without pHTN. No leukocytosis, BNP 410, troponin 84.4; suspect ischemic demand rather than ACS. In the ED Nitropaste 1 inch and Lasix 40 mg IV administered. Patient is receptive to indwelling Titus catheter for adequate and more accurate I's/O. Patient will be admitted for continued evaluation and management of HTN emergency and diastolic congestive heart failure. Repeat echo as patient has an appointment 03/10 for repeat echo. Administer additional dose of Lasix and increased dose of lisinopril to 20 mg twice daily. Will involve cardiology to establish care for newly diagnosed CHF. HTN emergency: Diastolic CHF: Acute Admit to PCU No leukocytosis, BNP 410 Troponin 84.4 --> 160--> 170; trend one more Q6. No chest pain. Suspect ischemic demand given heart failure CXR suggestive of pulm edema Lasix 40 mg IV given in ED; will administer an additional 20 mg and insert Titus for accurate I's/O BP 232/126 in ED; Nitro paste 1" admin; responded, now in 170's. Takes Lisinopril and HCTZ; did not take this AM; hold HCTZ for now per Cards recc; may benefit from loop diuretic therapy When I was in the room she was 170/90; increase dose of Lisinopril to 20 mg BID starting now ECHO 02/13: LV wall concentric motion, EF 55-59%, GIIDDx without pHTN. She had the ECHO recently due to heart murmur Was advised that it was difficult to visualize the valves and repeat echo was scheduled for 03/10; will repeat now while inpatient 1500mL fluid restriction Cardiology consultation given new diastolic CHF diagnosis 02/25 Diuresing well Continue Lasix IV plus bilateral Monitor closely 02/26 Improving Lasix transitioned to p.o. Spironolactone increased to 25 mg Anticipate discharge tomorrow 02/27 clinically improved euvolemic BP stable discharge on: Lasix 40mg po BID Spironolactone 25mg po daily Aspirin 81mg po daily Lisinopril increased to 20mg BID ff up with Real Estate Agent in 2 weeks HLD: Chronic Takes simvastatin; continue Most recent Lipid panel 11/2023: TG 113, HDL 63, LDL 77 Lumbar Radiculopathy: Chronic Follows with Pain management Recently started steroid injections Disposition: d/c home ff up with PCP in 1 week Real Estate Agent in 2 weeks plan of care discussed with patient and her granddaughter Miladis over the phone in detail and at length all questions answered they are understanding, agreeable, comfortable with the plan of care Discharge Exam General- oriented x 3, not in distress, speaks in sentences with no effort or accessory muscle use Eyes- anicteric Neck- no JVD Lungs- clear breath sounds bilaterally, no rales/wheezes Heart- normal rate, regular rhythm; no murmurs Abdomen- normal bowel sounds, nondistended, soft, no tenderness Extremities- no pretibial edema, no calf tenderness Neuro- alert, oriented x 3; no gross focal neurologic deficits Skin- warm & dry Updated Medication List Medication Instructions Recorded Confirmed Type calcium carbonate 600 mg-vitamin 0 tab PO DAILY ##0 07/10/09 02/25/24 History D3 20 mcg (800 unit) chewable tablet (Caltrate 600 plus D) multivitamin 0 tab PO DAILY ##0 07/10/09 02/25/24 History gabapentin 300 mg capsule 300 mg PO BID 02/25/24 02/25/24 History simvastatin 20 mg tablet 20 mg PO DAILY 02/25/24 02/25/24 History aspirin 81 mg tablet,delayed 81 mg PO QAM 30 days #30 tabs 02/28/24 Rx release furosemide 40 mg tablet 40 mg PO BID17 30 days #30 tabs 02/28/24 Rx lisinopril 20 mg tablet 20 mg PO BID 30 days #60 tabs 02/28/24 Rx spironolactone 25 mg tablet 25 mg PO DAILY 30 days #30 tabs 02/28/24 Rx Hospital Stay Data Consultations 02/25/24 09:37 ED Decision to Admit Stat 02/25/24 10:27 Consult Cardiology Routine Diagnostic Imagining Performed Laboratory Results WBC 4.69 K/ul (4.8-10.8) L 02/26/24 04:50 RBC 3.42 M/uL (4.20-5.40) L 02/26/24 04:50 Hgb 10.7 g/dl (12.0-16.0) L 02/26/24 04:50 Hct 32.8 % (37.0-47.0) L 02/26/24 04:50 MCV 95.9 fL (80.0-100.0) 02/26/24 04:50 MCH 31.3 pg (25.0-34.0) 02/26/24 04:50 MCHC 32.6 g/dL (32.0-36.0) 02/26/24 04:50 RDW Std Deviation 48.6 fL (36.4-46.3) H 02/26/24 04:50 RDW Coeff of J Luis 13.6 % (11.5-14.5) 02/26/24 04:50 Plt Count 212 K/uL (130-400) 02/26/24 04:50 MPV 10.0 fL (9.4-12.4) 02/26/24 04:50 Immature Gran % (Auto) 0.3 % 02/25/24 07:12 Neut % (Auto) 82.5 % 02/25/24 07:12 Lymph % (Auto) 10.6 % 02/25/24 07:12 [place] % (Auto) 5.8 % 02/25/24 07:12 Eos % (Auto) 0.1 % 02/25/24 07:12 Baso % (Auto) 0.7 % 02/25/24 07:12 Neut # (Auto) 7.40 K/uL (1.40-6.50) H 02/25/24 07:12 Lymph # (Auto) 0.95 K/uL (1.20-3.40) L 02/25/24 07:12 [place] # (Auto) 0.52 K/uL (0.11-0.59) 02/25/24 07:12 Eos # (Auto) 0.01 K/uL (0.00-0.50) 02/25/24 07:12 Baso # (Auto) 0.06 K/uL (0.00-0.20) 02/25/24 07:12 Immature Gran # (Auto) 0.03 K/uL (0.01-0.20) 02/25/24 07:12 PT 10.6 Seconds (9.0-12.0) 02/25/24 07:12 INR 1.0 (0.9-1.1) 02/25/24 07:12 APTT 26 Seconds (21-31) 02/25/24 07:12 PTT Ratio 0.9 02/25/24 07:12 Sodium 137 mmol/L (136-145) 02/28/24 06:33 Potassium 3.6 mmol/L (3.5-5.1) 02/28/24 06:33 Chloride 98 mmol/L (98-107) 02/28/24 06:33 Carbon Dioxide 32 mmol/L (21-32) 02/28/24 06:33 Anion Gap 7 (3-11) 02/28/24 06:33 BUN 29 mg/dl (6-23) H 02/28/24 06:33 Creatinine 0.95 mg/dl (0.6-1.2) 02/28/24 06:33 Est Cr Clr Drug Dosing 42.2 ml/min 02/28/24 06:33 Est GFR ( Amer) 68.9 ml/min 02/28/24 06:33 Est GFR (Non-Af Amer) 59.4 ml/min 02/28/24 06:33 BUN/Creatinine Ratio 30.5 (10-20) H 02/28/24 06:33 Glucose 109 mg/dl (70-99(Fasting)) H 02/28/24 06:33 Calcium 9.5 mg/dl (8.6-10.3) 02/28/24 06:33 Phosphorus 3.7 mg/dl (2.5-4.9) 02/25/24 09:35 Magnesium 1.7 mg/dl (1.7-2.4) 02/28/24 06:33 Total Bilirubin 0.6 mg/dl (0.2-1.0) 02/26/24 04:50 AST 28 U/L (13-39) 02/26/24 04:50 ALT 13 U/L (7-52) 02/26/24 04:50 Alkaline Phosphatase 50 U/L (34-104) 02/26/24 04:50 Troponin I High Sens 120.9 pg/ml (0-14) H* D 02/25/24 17:43 B-Natriuretic Peptide 410 pg/ml (0-100) H 02/25/24 07:12 Total Protein 7.3 gm/dl (6.0-8.3) 02/26/24 04:50 Albumin 4.1 gm/dl (3.4-5.0) 02/26/24 04:50 Globulin 3.2 gm/dl (2.5-4.0) 02/26/24 04:50 Albumin/Globulin Ratio 1.3 (0.9-2) 02/26/24 04:50 Procalcitonin 0.08 ng/ml (0-0.5) 02/25/24 07:12 Urine Color Yellow 02/25/24 09:22 Urine Appearance Clear (Clear) 02/25/24 09:22 Urine pH 7.5 (4.5-7.5) 02/25/24 09:22 Ur Specific [place] 1.006 (1.000-1.030) 02/25/24 09:22 Urine Protein Negative (Negative) 02/25/24 09:22 Urine Glucose (UA) Negative (Negative) 02/25/24 09:22 Urine Ketones Negative (Negative) 02/25/24 09:22 Urine Blood Negative (Negative) 02/25/24 09:22 Urine Nitrite Negative (Negative) 02/25/24 09:22 Urine Bilirubin Negative (Negative) 02/25/24 09:22 Urine Urobilinogen Negative (Negative) 02/25/24 09:22 Ur Leukocyte Esterase Negative (Negative) 02/25/24 09:22 Impressions SINGLE VIEW CHEST 02/25/24 CLINICAL HISTORY: Dyspnea FINDINGS: An AP, portable, upright chest radiograph is compared to study dated 04/14/2008 and correlated with chest CT dated 06/09/2008. The examination is degraded by portable technique and apical lordotic positioning. The heart is mildly enlarged. There is pulmonary vascular congestion. Bilateral airspace opacities are noted. No large pleural effusion or pneumothorax is seen. The skeletal structures are osteopenic. The bony thorax is grossly intact. Calcific tendinopathy is noted in the left shoulder. IMPRESSION: 1. Cardiomegaly with pulmonary vascular congestion. 2. Bilateral airspace opacities likely represent pulmonary edema. Correlate clinically for evidence of a superimposed infectious/inflammatory pneumonitis. Radiographic follow-up to resolution is recommended. ACT 112: Negative or not required by law. Electronically signed by: Kalin Bronson M.D. 02/25/2024 8:24 AM Chest X-Ray 02/27/24 16:16 XR chest 1V portable CLINICAL HISTORY: ff up chf TECHNIQUE: Single frontal radiograph of the chest was obtained. Comparison: Comparison is made to chest radiograph 02/25/2024 FINDINGS: No lines and tubes are seen. The cardiomediastinal silhouette is stable. The lungs are clear. No evidence of pleural effusion or pneumothorax. IMPRESSION: Interval resolution of previously noted pulmonary edema. Redemonstration of cardiomegaly. ACT 112: Negative or not required by law. Electronically signed by: Jim Rizzo M.D. 02/27/2024 8:19 PM Pending Results Patient Have Any Pending Studies at Discharge: No Discharge Instructions Given to Patient (Per Discharging Provider) PLEASE REFER TO YOUR NEW MEDICATION LIST AND FOLLOW INSTRUCTIONS CAREFULLY. YOUR NEW MEDICATIONS INCLUDE: Furosemide, Spironolactone- diuretics for congestive heart failure Aspirin- antiplatelet for prevention of heart attack Increase Lisinopril to 20mg twice a day. Stop HCTZ. PLEASE CALL YOUR PRIMARY CARE PHYSICIAN OR RETURN TO THE ER IF WITH WORSENING OF SYMPTOMS, INCLUDING shortness of breath, chest pain, leg swelling, etc FOLLOW UP WITH PRIMARY CARE PHYSICIAN IN 1 WEEK. FOLLOW UP WITH MANAGER INTERNATIONAL IN 2 WEEKS. Total Time Total Time Spent Total Time Spent (In Minutes): >30 minutes
== END 2024-02-28 14:18 | disposition home or self-care (01) | DRG 291 ==
LOC: ED 06:54 → SUATTDRO 09:35 → EDINP 09:35 → 2S 10:37